=== PATIENT | female | born 1980 | race Caucasian/White ===

== ENCOUNTER 2025-05-22 17:43 | Emergency (ER) | payer MEDICARE, MEDICAID, SELFPAY ==
--- OUTSIDE RECORDS SUMMARY | 2024-01-07 11:20 | XMS_ITS ---
Author Organization [facility] [place] Address [address] [place] [address] Care Team Providers Care Lead Sharepoint Developer Name Role Phone None, Unknown or Primary Care Provider Unavailab Martin Finley Unavailable [phone] REASON FOR VISIT 1 yr ov, Renal mass Encounters Encounter Location Date Provider Diagnosis [facility] [place] [address] [place] [address] 01/07/2024 Martin Roman Plan Of Treatment No Information Progress Notes * MARADIAGACaitlinDOB:1980 ( 44 yo F)Acc No.[id number]:01/07/2024 UNLOCKED PROGRESS NOTE Progress Note Patient: Caitlin CHAPARRO Provider: Pamella Roman MD :1980 A ge:43 Y S ex:Female Date:01/07/2024 Address: [address] [address] , [id number] Pcp:Unknown or None Subjective: * Chief Complaints: * 1 . 1 yr ov. 2. Renal mass. * HPI: G eneral: Last Visit: 42 yo F with Down syndrome, normal GFR, being seen in the office today for a renal mass. She had a renal US done Aug 2022 that showed a 1.7 cm L renal cyst with multiple septations. She had imaging going back to 2020 in [place] that showed the same 1.6 cm L complex renal cyst. She had a CT in 2019 that called the cyst a 1.8 cm complex cyst. She had a CT scan without contrast that was done in November of this year that did not mention any suspicious renal cysts or masses. No kindey stones were noted. Urinalysis done in November showed no evidence of hematuria. She has had a surgery for scoliosis done when she was 20 that involved most of the length of her spine. No issues with gross hematuria. * Medical History: Objective: * Vitals: Assessment: Plan: * Treatment: * * Electronic signature of Martin Roman MD, [id number] on 05/22/2025 at 12:49 PM EDT Sign off status: Pending Visit Status: C ANC (Cancelled) * Provider: Pamella Roman MD Date: 0 01/07/2024 Generated for Chiki talbot/Shahbaz/Dedrickitting on: 0 05/22/2025 12:49 PM EDT
--- OUTSIDE RECORDS SUMMARY | 2025-05-12 13:30 | XMS_ITS | Encounter Summary ---
Author Organization [facility] Healthcare Address [address] [facility] [place] [address] Care Team Providers Care Chemical Engineering Professor Name Role Phone Martin An MD Primary Care Provider [phone] Reason for Visit * Consultation (Routine) - Authorized Specialty Diagnoses / Procedures Referred By Elvis vega Referred To Contact Physical Therapy Diagnoses S/P foot surgery Instability of right ankle joint Difficulty walking Weakness Procedures OR OFFICE/OUTPATIENT [facility] 60 MINUTES Anish Ng, DPM [address] [place] [address] Phone: tel: fax: Rick Montano, PT [address] [place] [address] Phone: tel: fax: Referral ID Status Reason Start Date Expiration Date Visits Requested Visits Authorized [id number] Authorized Specialty Services Required 04/17/2025 09/16/2025 10 30 Encounter Details Date Type Department Care Team (Late st Contact Info) Description 05/12/2025 1:30 PM EDT Treatment [facility] [address] [place] [address] Rick Montano, PT [address] [place] [address] Instability of right ankle joint (Primary Dx); S/P foot surgery; Difficulty walking; Weakness Social History Tobacco Use Types Packs/Day Years Used Date Smoking Tobacco: Never Smokeless Tobacco: Never Alcohol Use Standard Drinks/Week Comments Never 0 (1 standard drink = 0.6 oz pur e alcohol) Comments Unknown Sex and Gender Information Value Date Recorded Sex Assigned at Not on file Legal Sex Female 11:45 PM EDT Gender Identity Female 02/17/2025 8:42 AM EDT Sexual Orientation Not on file documented as of this encounter Progress Notes * Rick Montano, PT - 05/12/2025 1:30 PM EDT Images from the original note were not included. Physical Therapy Physical Therapy Treatment Visit Patient Name: Caitlin Huff Today's Date: 05/12/2025 Encounter Diagnoses Name Primary? Instability of right ankle joint Yes S/P foot surgery Difficulty walking Weakness Visit number: 5 Time in: 1:30 pm Time out: 2:06 pm Sup time: 31 min Total time: 36 min Subjective Caitlin Huff 44 y.o. female presents to physical therapy w/ chief c/o R ankle pain. Mechanism of Onset: Date of surgery 03/05/2025: Right ankle arthroscopy with debridement and peroneal tendon repair with superior peroneal retinacular reconstruction and fibular groove deepening. Current deficits: pain, weakness, decreased ROM/flexibility, impaired gait Pain: pt reports a little pain entering vs a lot or in-between options given due to not usually having much to say. Location: R ankle Aggravating Factors: WBING, standing, walking, movement, ADLs/self care Relieving factors: rest, ice Precautions: ASO x ~6 weeks overall, ease out in PT Objective Gait remains mod to severely antalgic with ASO brace on has cane with her father believes she just likes to use it because he uses one Treatment Interventions Education: Continue HEP Manual Therapy: x 8 min Gentle massage and PROM pt apprehensive and fearful Therapeutic Exercise:x 23 min per evgeny grid, ROM, flexibility, strength, endurance demo and verbal cues as well as encouragement Modalities: CP held today advised to ice at home prn still Assessment/Plan R ankle pain, decreased ROM, weakness causing impaired gait and increased difficulty with ADLs/selfcare, decreased QOL Tolerates all fair today. Pt is very fearful of all movement. Grimacing at times. Initiated some Wbing EVGENY in brace and will try to ease out of it as tolerated ok moving forward Continue as able. documented in this encounter Plan of Treatment Upcoming Encounters Date Type Department Care Team (Late st Contact Info) Description 05/28/2025 3:30 PM EDT Treatment [facility] [address] [place] [phone] Candace Johnson, CAPITAL MARKETS SPECIALIST [address] [place] [address] 05/29/2025 1:30 PM EDT Treatment [facility] [address] [place] [phone] Candace Johnson, CAPITAL MARKETS SPECIALIST [address] [facility] [place] [address] 06/01/2025 10:30 AM EDT Office Visit [facility] Podiatry [address] [place] [phone] Anish Ng, DPMemo [address] [address] 06/02/2025 11:30 AM EDT Treatment [facility] [address] [facility] [place] [address] Jacquelyn Colmenares, CAPITAL MARKETS SPECIALIST 06/04/2025 11:30 AM EDT Treatment [facility] [address] [facility] [place] [phone] Candace Johnson, CAPITAL MARKETS SPECIALIST [address] [facility] [place] [address] documented as of this encounter Visit Diagnoses Diagnosis Instability of right ankle joint- Primary S/P foot surgery Other postprocedural status Difficulty walking Difficulty in walking Weakness Other malaise and fatigue documented in this encounter Care Teams Chemical Engineering Professor Relationship Specialty Start Date End Date Martin nA MD [address] [place] [address], [address] [place], [place] [id number] PCP - General Family Medicine 01/12/25 documented as of this encounter
--- OUTSIDE RECORDS SUMMARY | 2025-05-15 13:30 | XMS_ITS | Encounter Summary ---
Author Organization [facility] Healthcare Address [address] [facility] [place] [address] Care Team Providers Care Mining Technician Name Role Phone Martin An MD Primary Care Provider [phone] Reason for Visit * Consultation (Routine) - Authorized Specialty Diagnoses / Procedures Referred By Elvis vega Referred To Contact Physical Therapy Diagnoses S/P foot surgery Instability of right ankle joint Difficulty walking Weakness Procedures [facility] OFFICE/OUTPATIENT [facility] 60 MINUTES Anish Ng, DPM [address] [place] [address] Phone: tel: fax: Rick Montano, PT [address] [place] [address] Phone: tel: fax: Referral ID Status Reason Start Date Expiration Date Visits Requested Visits Authorized [id number] Authorized Specialty Services Required 04/17/2025 09/16/2025 10 30 Encounter Details Date Type Department Care Team (Late st Contact Info) Description 05/15/2025 1:30 PM EDT Treatment [facility] [address] [place] [address] Rick Montano, PT [address] [place] [address] Instability of right ankle joint (Primary Dx); [...] Progress Notes * Rick Montano, PT - 05/15/2025 1:30 PM EDT Images from the original note were not included. Physical Therapy Physical Therapy Treatment Visit Patient Name: Caitlin Huff Today's Date: 05/15/2025 Encounter Diagnoses Name Primary? Instability of right ankle joint Yes S/P foot surgery Difficulty walking Weakness Visit number: 6 Time in: 1:05 pm Time out: 1:45 pm Sup time: 30 min Total time: 40 min Subjective Caitlin Huff 44 y.o. female [...] likes to use it because he uses one. Treatment Interventions Education: Continue HEP Manual Therapy: x 8 min Gentle massage and PROM pt apprehensive and fearful Therapeutic Exercise:x 22 min per evgeny grid, ROM, flexibility, strength, endurance demo and verbal cues as well as encouragement Modalities: CP held today advised to ice at home prn still Assessment/Plan R ankle pain, decreased ROM, weakness causing impaired gait and increased difficulty with ADLs/selfcare, decreased QOL Tolerates all fair today. Pt is very fearful of all movement. Grimacing at times. Discussed with ptand her father brace may be hurting more than helping at this point and we need to try to ease out as tolerated moving forward using funeral pre arrangement specialist brace to transition if needed, pt father agrees, reportingpt very inactive hardly gets out of chair at home and has hx of holding onto things and s/s. This is a barrier at this point, gait not improving has been bringing cane last few sessions and very antalgic/fearful, very slow loly, foot flat no heel-toe. Continue as able. documented in this encounter Plan of Treatment Upcoming Encounters Date Type Department Care Team (Late st Contact Info) Description 05/28/2025 3:30 PM EDT Treatment [facility] [address] [place] [phone] Candace Johnson, COMMERCIAL REAL ESTATE ATTORNEY [address] [facility] [place] [address] 05/29/2025 1:30 PM EDT Treatment [address] [place] [phone] Candace Johnson, COMMERCIAL REAL ESTATE ATTORNEY [address] [place] [address] 06/01/2025 10:30 AM EDT Office Visit [facility] Podiatry [address] [phone] Anish Ng, DPM [address] [place] [address] 06/02/2025 11:30 AM EDT Treatment [place] [id number] [place] [phone] Jacquelyn Colmenares, COMMERCIAL REAL ESTATE ATTORNEY 06/04/2025 11:30 AM EDT Treatment [place] [id number] [facility] [place] [phone] Candace Johnson, COMMERCIAL REAL ESTATE ATTORNEY [address] [facility] [place] [address] documented as of this encounter Visit Diagnoses Diagnosis Instability of right ankle joint- Primary S/P foot surgery Other postprocedural status Difficulty walking Difficulty in walking Weakness Other malaise and fatigue documented in this encounter Care Teams Mining Technician Relationship Specialty Start Date End Date Martin An MD [address] [place] [address], [address] [place] [address] PCP - General Family Medicine 01/12/25 documented as of this encounter
--- OUTSIDE RECORDS SUMMARY | 2025-05-21 13:35 | XMS_ITS | Encounter Summary ---
Author Organization [facility] Address [id number] [address] [place] [address] Care Team Providers Care Curriculum Assistant Name Role Phone Martin An MD Primary Care Provider [phone] Reason for Visit * Reason Comments Heartburn Pt reports epigastri c pain that started after eating her toast. Encounter Details Date Type Department Care Team (Late st Contact Info) Description 05/21/2025 1:35 PM EDT - 05/21/2025 5:40 PM EDT Emergency [facility] - Emergency [address] [place] [id number] Marta Pearson MD [address] [place] [address] Chest pain, unspecified type (Primary Dx) Discharge Disposition: Home Social History Tobacco Use Types Packs/Day Years Used Date Smoking Tobacco: Never Smokeless Tobacco: Never Alcohol Use Standard Drinks/Week Comments Never 0 (1 standard drink = 0.6 oz pur e alcohol) [facility] Utilities Answer Date Recorded In the past 12 months has [employer], gas, oil, or water [employer] threatened to shut off services in your home? No 03/14/2025 Social Connection and Isolation Panel [NHANES] A nswer Date Recorded In a typical week, how many times do you talk on the phone with family, friends, or neighbors? Patient unable to answer 03/14/2025 How often do you get togethe r with friends or relatives? Patient unable to answer 03/14/2025 How often do you attend up health system or restorationism services? Patient unable to answer 03/14/2025 Do you belong to any clubs o r organizations such as oriental orthodox groups, unions, fraternal or athletic groups, or school groups? Patient unable to answer 03/14/2025 How often do you attend meet ings of the clubs or organizations you belong to? Patient unable to answer 03/14/2025 Are you , , di vorced, , never , or living with a partner? Patient unable to answer 03/14/2025 AUDIT-C Answer Date Recorded Q1: How often do you have a drink containing alcohol? Never 03/14/2025 Q2: How many drinks containi ng alcohol do you have on a typical day when you are drinking? Patient does not drink Q3: How often do you have si x or more drinks on one occasion? Never 03/14/2025 Overall Financial Resource Strain (CARDIA) Answe r Date Recorded How hard is it for you to pa y for the very basics like food, housing, medical care, and heating? Not hard at all 03/14/2025 PHQ-2 Answer Date Recorded Total Score 6 03/14/2025 [facility] of Occupat ional Health - Occupational Stress Questionnaire Answer Date Recorded Do you feel stress - tense, restless, nervous, or anxious, or unable to sleep at night because your mind is troubled all the time - these days? Patient unable to answer 03/14/2025 Exercise Vital Sign Answer Date Recorde d On average, how many days pe r week do you engage in moderate to strenuous exercise (like a brisk walk)? 0 days 03/14/2025 On average, how many minutes do you engage in exercise at this level? 0 min 03/14/2025 PRAPARE - Transportation Answer Date Re corded In the past 12 months, has l ack of transportation kept you from medical appointments or from getting medications? No 02/16 In the past 12 months, has l ack of transportation kept you from meetings, work, or from getting things needed for daily living? No 03/14/2025 Housing Instability Answer Date Recorde d Are you worried or concerned that in the next two months you may not have stable housing that you own, rent or stay in as a part of a household? No 03/14/2025 Childcare Answer Date Recorded Do problems getting child ca re make it difficult for you to work or study? No 03/14/2025 Employment Answer Date Recorded Do you need help finding a [facility] and/or a training program? No 03/14/2025 Hunger Screening Answer Date Recorded Within the past 12 months we worried whether our food would run out before we got money to buy more. Never True 05/21/2025 Within the past 12 months th e food we bought just didn't last and we didn't have money to get more. Never True 05/21/2025 Purpose - Life Answer Date Recorded I have a purpose and direction in my life. Stron gly Agree 03/14/2025 Comments No Sex and Gender Information Value Date Recorded Sex Assigned at Not on file Legal Sex Female 7:50 PM EDT Gender Identity Not on file Sexual Orientation Not on file documented as of this encounter Last Filed Vital Signs Vital Sign Reading Time Taken Comments Blood Pressure 112/65 05/21/2025 5:15 PM EDT Pulse 65 05/21/2025 5:15 PM EDT Temperature 37.1 C (98.7 F) 05/21/2025 1:38 PM EDT Respiratory Rate 12 05/21/2025 5:15 PM EDT Oxygen Saturation 91% 05/21/2025 5:15 PM EDT Inhaled Oxygen Concentration - - Weight 65.8 kg (145 lb) 05/21/2025 1:38 PM EDT Height 152.4 cm (5') 05/21/2025 1:38 PM EDT Body Mass Index 28.32 05/21/2025 1:38 PM EDT documented in this encounter Discharge Instructions * Attachments The following attachments cannot be sent through Care Everywhere. * Chest pain in adults ??? ED discharge instructions (Pakistani) documented in this encounter Medications at Time of Discharge acetaminophen (TYLENOL EXTRA STRENGTH) 500 mg tablet Take 2 tablets (1,000 mg total) by mouth every 6 (six) hours as needed for pain. 03/13/2025 ascorbic acid (VITAMIN C) 500 mg tablet Take 1 tablet (500 mg total) by mouth in the morning. biotin (BIOTIN) 5 mg capsule Take 1 capsule (5 mg total) by mouth in the morning. cholecalciferol, vitamin D3, (VITAMIN D3 ORAL) Take by mouth. clotrimazole-beta methasone (LOTRISONE) creamIndications: Intertriginous candidiasis Apply 1 Application topically in the morning and 1 Application before bedtime. 45 g 02/24/2025 cyanocobalamin 1000 MCG tablet Take 1 tablet (1,000 mcg total) by mouth in the morning. escitalopram (LEXAPRO) 20 mg tablet Take 1 tablet (20 mg total) by mouth in the morning. 90 tablet 1 08/09/2022 ibuprofen (MOTRIN) 800 mg tablet Take 1 tablet (800 mg total) by mouth every 8 (eight) hours as needed for pain. 03/13/2025 levothyroxine (SYNTHROID, LEVOTHROID) 75 MCG tablet Take 1 tablet (75 mcg total) by mouth in the morning. 90 tablet 3 05/07/2025 multivitamin with minerals tablet niacin (VITAMIN B3) 250 mg tablet Take 1 tablet (250 mg total) by mouth daily with breakfast. OXcarbazepine (TRILEPTAL) 150 mg tablet Take 1 tablet (150 mg total) by mouth nightly. 90 tablet 09/29/2022 traZODone (DESYREL) 50 mg tablet Take 1 tablet (50 mg total) by mouth nightly. 06/17/2022 documented as of this encounter ED Notes * Marta Pearson MD - 05/21/2025 2:01 PM EDT Images from the original note were not included. [facility] - EMERGENCY Pt Name: Caitlin Huff Birthdate: 1980 Chief Complaint: Chief Complaint Patient presents with ??? Heartburn Pt reports epigastric pain that started after eating her toast. History of Present Illness: Initial evaluation performed at 2:[address] Marisel Pearson. Patient is a 44 y.o. female who presents to the ED for evaluation of chest pain. Pt has down syndrome so history is not that great but mother is in room to help us. Mother states she has had chest pain and shortness of breath since 1030 AM today, with the pt states that the pain is a 6/10 and is a constant moderate pain, and she states it hurts more when taking a deep breath. Mother denied any prior history of this happening. Pt and mother denied taking any medication for this. Mother states she does have a history of heart problems, but could not provide any details. Mother denied any history of diabetes, hypertension, GERD, or anxiety. Mother states that the pt's blood pressure does tend to be lower, but not as low as it has been today. Pt denied any abdominal pain, but does state she is slightly nauseous. Mother states the patient is bipolar and does take medications for that. Patient is developmentally delayed and mom does provide history as well. 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 Allergic 1982 Ceclor ??? Anxiety ??? Arthritis ??? Depression ??? Disease of thyroid gland ??? Down syndrome ??? Heart murmur ??? HL (hearing loss) ??? Leukopenia ??? Scoliosis ??? Visual impairment Past Surgical History: Past Surgical History: Procedure Laterality Date ??? ADENOIDECTOMY ??? ARTHROSCOPIC DEBRIDEMENT ANKLE Right 03/05/2025 Performed by Anish Ng DPM at [facility] ??? COLONOSCOPY 20uears ago 2019 ??? HYSTERECTOMY ??? KNEE SURGERY Right ??? REPAIR TENDON ANKLE Right 03/05/2025 Performed by Anish Ng DPM at [facility] ??? SPINE SURGERY scoliosis ??? TONSILLECTOMY Family History: Family History Problem Relation Age of Onset ??? Arthritis Mother ??? COPD Mother ??? Depression Mother ??? Alcohol abuse Father ??? Diabetes Maternal Grandmother ??? Heart disease Maternal Grandmother ??? Uterine cancer Maternal Grandmother ??? Hyperlipidemia Maternal Grandfather ??? Hypertension Maternal Grandfather ??? Prostate cancer Maternal Grandfather ??? Stroke Maternal Grandfather ??? Lung cancer Maternal Uncle ??? Breast cancer Neg Hx Social History: Social History Socioeconomic History ??? Marital status: Single Tobacco Use ??? Smoking status: Never ??? Smokeless tobacco: Never Vaping Use ??? Vaping status: Never Used Substance and Sexual Activity ??? Alcohol use: Never ??? Drug use: Never ??? Sexual activity: Never Social Drivers of Health Financial Resource Strain: Low Risk (03/14/2025) Overall Financial Resource Strain (CARDIA) ??? Difficulty of Paying Living Expenses: Not hard at all Food Insecurity: No Food Insecurity (05/21/2025) Hunger Screening ??? Food Insecurity - Worry: Never True ??? Food Insecurity - Inability: Never True Transportation Needs: No Transportation Needs (03/14/2025) PRAPARE - Transportation ??? Lack of Transportation (Medical): No ??? Lack of Transportation (Non-Medical): No Physical Activity: Inactive (03/14/2025) Exercise Vital Sign ??? Days of Exercise per Week: 0 days ??? Minutes of Exercise per Session: 0 min Stress: Patient Unable To Answer (03/14/2025) [place] of Occupational Health - Occupational Stress Questionnaire ??? Feeling of Stress : Patient unable to answer Social Connections: Patient Unable To Answer (03/14/2025) Social Connection and Isolation Panel [NHANES] ??? Frequency of Communication with Friends and Family: Patient unable to answer ??? Frequency of Social Gatherings with Friends and Family: Patient unable to answer ??? Attends Jew Services: Patient unable to answer ??? Active Member of Clubs or Organizations: Patient unable to answer ??? Attends Club or Organization Meetings: Patient unable to answer ??? Marital Status: Patient unable to answer Interpersonal Safety: Not At Risk (03/14/2025) Humiliation, Afraid, Rape, and Kick questionnaire ??? Fear of Current or Ex-Partner: No ??? Emotionally Abused: No ??? Physically Abused: No ??? Sexually Abused: No Housing Instability: Low Risk (03/14/2025) Housing Instability ??? Housing Instability: No Review of Systems: Review of Systems Physical Exam: ED Triage Vitals [05/21/25 1338] Temp Heart Rate Resp BP SpO2 37.1 ??C (98.7 ??F) 73 20 (!) 104/38 95 % Temp Source Heart Rate Source Patient Position BP Location FiO2 (%) Oral Pulse Ox Sitting Left arm -- Vitals: 05/21/25 1338 05/21/25 1500 BP: (!) 104/38 96/71 Temp: 37.1 ??C (98.7 ??F) TempSrc: Oral Pulse: 73 60 Resp: 20 19 SpO2: 95% 98% Height: 152.4 cm (5') Weight: 65.8 kg (145 lb) Physical Exam Vitals and nursing note reviewed. Constitutional: Comments: Bp is 104/38 and mom notes that her bp tends to runs low, sometimes lower than that. HENT: Head: Normocephalic and atraumatic. Eyes: Conjunctiva/sclera: Conjunctivae normal. Cardiovascular: Rate and Rhythm: Normal rate. Pulmonary: Effort: Pulmonary effort is normal. Breath sounds: Normal breath sounds. Chest: Comments: Chest pain is reproducible over the lower sternum. Abdominal: General: There is no distension. Palpations: Abdomen is soft. Musculoskeletal: General: Normal range of motion. Cervical back: Normal range of motion and neck supple. Skin: General: Skin is warm and dry. Neurological: General: No focal deficit present. Mental Status: She is alert and oriented to person, place, and time. GCS: GCS eye subscore is 4. GCS verbal subscore is 5. GCS motor subscore is 6. Procedure: Procedures Re-evaluation: Re-Evaluation Medical Decision Making Amount and/or Complexity of Data Reviewed Labs: ordered. Details: Labs notable for: initial labs at baseline. Currently waiting for second trop and UA. Radiology: ordered and independent interpretation performed. Details: Imaging was independently viewed and is notable for no acute findings. However, pending official radiologist read. ECG/medicine tests: ordered and independent interpretation performed. Details: EKG done on 05/21/2025 at 1:33 p.m. shows sinus rhythm at a rate of 72. Normal axis. Normal intervals. No inappropriate ST elevation or depression. Nonspecific T-waves. ED Course: ED Course as of 05/21/25 1729 Gabriella May 21, 2025 170 Metabolic panel is reassuring against acute clinically significant electrolyte abnormalities, acute kidney injury, and acute liver failure. Troponin is within normal limits, lessening concern for acute IA. CBC is reassuring against acute clinically significant anemia, leukocytosis, and thrombocytopenia. BNP not significantly elevated, lessening concern for acute heart failure. Lipase is not significantly elevated, lessening concern for acute pancreatitis. [DW] 1709 UA inconclusive, no clear urinary symptoms. Will send for culture [DW] 1728 Troponin I, High Sensitivity: 3 [DW] ED Course User Index [DW] Gaetano Velazquez, DO Clinical Impressions as of 05/21/25 1729 Chest pain, unspecified type Transfer of Care: Germán Borden(scribe), documented on behalf and in the presence of Dr. Navin Pearson. 05/21/2025 4:[address] Shadi Velazquez accepted sign out from Dr. Navin Pearson. Additional Notes/Findings for Transfer of Care 05:19 PM Updated the pt and her family on results of workup. The pt is stable for discharge home. Return precautions were discussed. We discussed the need for follow up with PCP. The pt stated their understanding. They had no further questions. ED Disposition None . Please note that portions of this note were completed with a voice recognition program. Efforts were made to edit the dictations but occasionally words are mis-transcribed. Germán Nava 05/21/25 1402 Germán Nava 05/21/25 1406 Germán Nava 05/21/25 1409 Germán Nava 05/21/25 1418 Germán Nava 05/21/25 1511 Marta Pearson MD 05/21/25 1518 Germán Nava 05/21/25 1534 Marta Pearson MD 05/21/25 1540 Nikita Harper 05/21/25 1724 Marta Pearson MD 05/22/25 1348 documented in this encounter Plan of Treatment Upcoming Encounters Date Type Department Care Team (Late st Contact Info) Description 11/30/2025 1:30 PM EDT Office Visit [facility] [address] [place] [phone] Martin An MD [address] [place] [address], [address] [place] [phone] Pending Results Name Type Priority Associated Diagnoses Date /Time Urine Culture Urine, Clean Catch Midstream Microbiology STAT 05/21/2025 4:58 PM EDT Scheduled Orders Name Type Priority Associated Diagnoses Orde r Schedule Urine Culture Urine, Clean Catch Midstream Microbiology STAT Add-on STAT for 1 Occurrences starting 05/21/2025 until 05/21/2025 documented as of this encounter Goals Goal Patient Goal Type Associated Problems Recent Progress Patient-Stated? Author jail care General Yes Darlene Mendes, RN Note: Evaluation of progress towards goal: Patient and her parents are agreeable to jail care. Mother states that the patient was at [facility] before and they will accept her back. Referral sent to [facility] and physician underwriter spoke with Briana at [facility]. Briana is not familiar with a discussion with the mother. They will review the referral. documented as of this encounter Procedures Procedure Name Priority Date/Time Associated Diagnosis Comments POCT NURSING URINE MACROSCOPIC UA Routine 05/21/2025 5:12 PM EDT ER EXTRA URINE MARBLE STAT 05/21/2025 4:58 PM EDT ER EXTRA URINE CULTURE STAT 4:58 PM EDT ER EXTRA URINE STAT 05/21/2025 4:58 PM EDT TROP I, HIGH SENSITIVITY 1 HOUR STAT 05/21/2025 3:33 PM EDT XR CHEST 2 VWS STAT 05/21/2025 3:23 PM EDT TROPONIN I, HIGH SENSITIVITY 0 HOUR STAT 05/21/2025 2:18 PM EDT TROPONIN I, HIGH SENSITIVITY 0 HOUR STAT 05/21/2025 2:18 PM EDT MAGNESIUM STAT 05/21/2025 2:18 PM EDT LIPASE STAT 05/21/2025 2:18 PM EDT COMPREHENSIVE METABOLIC PANEL STAT 05/21/2025 2:18 PM EDT EXTRA TUBES LAVENDER TOP Routine 05/21/2025 2:17 PM EDT EXTRA TUBES BLUE TOP Routine 05/21/2025 2:17 PM EDT EXTRA TUBES Routine 05/21/2025 2:17 PM EDT CBC WITH AUTO DIFFERENTIAL STAT 05/21/2025 2:17 PM EDT B-TYPE NATRIURETIC PEPTIDE STAT 05/21/2025 2:17 PM EDT ECG 12-LEAD STAT 05/21/2025 1:33 PM EDT documented in this encounter Results * (ABNORMAL) POCT Nursing Urine Macroscopic UA (05/21/2025 5:12 PM EDT) Pathologist [facility] POC Urine Specific [place] 1.020 1.010, 1.015, 1.020, 1.025 05/21/2025 5:01 PM EDT [facility] POC Urine Leukocyte Esterase Trace(A) Negative 05/21/2025 5:01 PM EDT [facility] POC Urine Nitrite Negative Negative 05/21/2025 5:01 PM EDT [facility] POC Urine pH 7.0 5.0, 6.0, 6.5, 7.0, 7.5, 8.0, 8.5, 5.5 05/21/2025 5:01 PM EDT [facility] POC Urine Protein Negative Negative 05/21/2025 5:01 PM EDT [facility] POC Urine Glucose Negative Negative 05/21/2025 5:01 PM EDT [facility] POC Urine Ketones Trace(A) Negative 05/21/2025 5:01 PM EDT [facility] POC Urine Urobilinogen 0.2 E.U./dL 05/21/2025 5:01 PM EDT [facility] POC Urine Bilirubin Negative Negative 05/21/2025 5:01 PM EDT [facility] POC Urine Blood/HGB Trace(A) Negative 05/21/2025 5:01 PM EDT [facility] Urine 05/21/2025 5:12 PM EDT 05/21/2025 5:01 PM EDT us Marta Pearson MD POINT OF CARE TEST ORDERABLES Final Result Performing Organization Address [facility] Co de Phone Number [address] [place] [address], [place] * Extra Urine [place]ett (05/21/2025 4:58 PM EDT) Extra Tube Auto Resulted 05/21/2025 6:01 PM EDT [facility] Urine Urine specimen collection, clean catch / Unknown 05/21/2025 4:58 PM EDT 05/21/2025 5:22 PM EDT us Marta Pearson MD URINE ORDERABLES Final Result Performing Organization Address [facility] Co de Phone Number [address] [place] [address], [place] * Extra Urine Culture (05/21/2025 4:58 PM EDT) Extra Tube Auto Resulted 05/21/2025 6:01 PM EDT [facility] Urine Urine specimen collection, clean catch / Unknown 05/21/2025 4:58 PM EDT 05/21/2025 5:22 PM EDT us Marta Pearson MD URINE ORDERABLES Final Result Performing Organization Address [facility] Co de Phone Number [address] [place] [address], [place] * Extra Urine (05/21/2025 4:58 PM EDT) Extra Tube Auto Resulted 05/21/2025 6:01 PM EDT [facility] Urine Urine specimen collection, clean catch / Unknown 05/21/2025 4:58 PM EDT 05/21/2025 5:22 PM EDT us Marta Pearson MD URINE ORDERABLES Final Result Performing Organization Address City/[facility]/ZIP Co de Phone Number [facility] [address] [place] [address] [place] [address], [place] * Troponin I, High Sensitivity 1 Hour (05/21/2025 3:33 PM EDT) TROPONIN I, HIGH SENSITIVITY 3 <16 ng/L 05/21/2025 5:26 PM EDT [facility] Blood Venous blood / Unknown Venipuncture / Unknown 05/21/2025 3:33 PM EDT 05/21/2025 3:38 PM EDT Marta Pearson MD LAB BLOOD ORDERABLES Final Re sult Performing Organization Address [facility] Co de Phone Number [address] [place] [address], [place] * X-ray chest 2 views (05/21/2025 3:23 PM EDT) Anatomical Region Laterality Modality Body, Chest N/A Computed Radiogr aphy 05/21/2025 3:23 PM EDT Narrative 05/21/2025 3:24 PM EDT XR CHEST 2 VWS INDICATION: Chest pain COMPARISON: X-ray 05/12/2023 FINDINGS: Cardiomediastinal silhouette and pulmonary vasculature are within normal limits. Lungs and pleural space are clear. There is no pleural effusion or pneumothorax. Partial visualization of thoracic fusion hardware. IMPRESSION: No acute cardiopulmonary process. Finalized by Dereck Peterson on 05/21/2025 3:24 PM Procedure Note Dereck Peterson MD - 05/21/2025 XR CHEST 2 VWS INDICATION: Chest pain COMPARISON: X-ray 05/12/2023 FINDINGS: Cardiomediastinal silhouette and pulmonary vasculature are within normallimits. Lungs and pleural space are clear. There is no pleural effusionor pneumothorax. Partial visualization of thoracic fusion hardware. IMPRESSION: No acute cardiopulmonary process. Finalized by Dercek Peterson on 05/21/2025 3:24 PM Marta Pearson MD IMG DIAGNOSTIC IMAGING ORDERA BLES Final Result * Troponin I, High Sensitivity 0 Hour (05/21/2025 2:18 PM EDT) Pathologist [facility] TROPONIN I, HIGH SENSITIVITY 2 <16 ng/L 05/21/2025 2:50 PM EDT [facility] Blood Venous blood / Unknown Venipuncture / Unknown 05/21/2025 2:18 PM EDT 05/21/2025 2:19 PM EDT Marta Pearson MD LAB BLOOD ORDERABLES Final Re sult Performing Organization Address [facility] Co de Phone Number [address] [place] [address], [place] * (ABNORMAL) Lipase (05/21/2025 2:18 PM EDT) Pathologist [facility] LIPASE 59(H) 17 - 40 U/L 05/21/2025 2:41 PM EDT [facility] Blood Venous blood / Unknown Venipuncture / Unknown 05/21/2025 2:18 PM EDT 05/21/2025 2:19 PM EDT Marta Pearson MD LAB BLOOD ORDERABLES Final Re sult Performing Organization Address [facility] Co de Phone Number [address] [place] [address], [place] * Comprehensive metabolic panel (05/21/2025 2:18 PM EDT) Pathologist [facility] SODIUM 138 134 - 146 mmol/L 05/21/2025 2:44 PM EDT [facility] POTASSIUM 4.0 3.5 - 5.0 mmol/L 05/21/2025 2:44 PM EDT [facility] CHLORIDE 104 98 - 109 mmol/L 05/21/2025 2:44 PM EDT [facility] CARBON DIOXIDE 29 22 - 32 mmol/L 05/21/2025 2:44 PM EDT [facility] ANION GAP 5 5 - 15 mmol/L 05/21/2025 2:44 PM EDT [facility] BLOOD UREA NITROGEN 18 5 - 23 mg/dL 05/21/2025 2:44 PM EDT [facility] CREATININE 0.83 0.40 - 1.00 mg/dL 05/21/2025 2:44 PM EDT [facility] Comment:METHOD TRACEABLE TO IDMS STANDARD GLUCOSE 90 65 - 99 mg/dL 05/21/2025 2:44 PM EDT [facility] CALCIUM 9.0 8.5 - 10.5 mg/dL 05/21/2025 2:44 PM EDT [facility] TOTAL PROTEIN 7.3 6.0 - 8.0 g/dL 05/21/2025 2:44 PM EDT [facility] ALBUMIN 3.8 3.2 - 5.3 g/dL 05/21/2025 2:44 PM EDT [facility] ALKALINE PHOSPHATASE 66 39 - 130 U/L 05/21/2025 2:44 PM EDT [facility] AST 22 <=41 U/L 05/21/2025 2:44 PM EDT [facility] ALT 15 <=31 U/L 05/21/2025 2:44 PM EDT [facility] BILIRUBIN,TOTAL 0.3 0.3 - 1.2 mg/dL 05/21/2025 2:44 PM EDT [facility] EGFR Non-Race Dependent 89 >=60 ml/min/1.7 3sq.m 05/21/2025 2:44 PM EDT [facility] Comment: eGFR not reported due to non-numeric value for Creatinine. Reported eGFR is based on the CKD-EPI 2020 equation that does not use a race coefficient. Blood Venous blood / Unknown Venipuncture / Unknown 05/21/2025 2:18 PM EDT 05/21/2025 2:19 PM EDT us Marta Pearson MD LAB BLOOD ORDERABLES Final Re sult Performing Organization Address City/[facility]/ZIP Co de Phone Number [address] [place] [address], [place] * Magnesium (05/21/2025 2:18 PM EDT) MAGNESIUM 2.0 1.8 - 2.6 mg/dL 05/21/2025 2:44 PM EDT [facility] Blood Venous blood / Unknown Venipuncture / Unknown 05/21/2025 2:18 PM EDT 05/21/2025 2:19 PM EDT us Marta Pearson MD LAB BLOOD ORDERABLES Final Re sult Performing Organization Address [facility] Co de Phone Number [address] [place] [address], [place] * Lavender Top (05/21/2025 2:17 PM EDT) Extra Tube Auto Resulted 05/21/2025 4:01 PM EDT [facility] Blood Venous blood / Unknown Venipuncture / Unknown 05/21/2025 2:17 PM EDT 05/21/2025 2:19 PM EDT us Marta Pearson MD LAB BLOOD ORDERABLES Final Re sult Performing Organization Address City/[facility]/ZIP Co de Phone Number [address] [place] [address], [place] * Light Blue Top (05/21/2025 2:17 PM EDT) Extra Tube Auto Resulted 05/21/2025 4:01 PM EDT [facility] Blood Venous blood / Unknown 05/21/2025 2:17 PM EDT 05/21/2025 2:19 PM EDT us Marta Pearson MD LAB BLOOD ORDERABLES Final Re sult [facility] [address] [place] [address], [place] * (ABNORMAL) CBC auto differential (05/21/2025 2:17 PM EDT) WBC 3.2(L) 4 - 11 x10E9/L 05/21/2025 2:26 PM EDT [facility] RBC Count 3.90 3.8 - 5.2 X10E12/L 05/21/2025 2:26 PM EDT [facility] Hemoglobin 12.9 11.7 - 15.5 g/dL 05/21/2025 2:26 PM EDT [facility] Hematocrit 38.5 35 - 47 % 05/21/2025 2:26 PM EDT [facility] MCV 99 80 - 100 fL 05/21/2025 2:26 PM EDT [facility] MCH 33.1 27 - 34 pg 05/21/2025 2:26 PM EDT [facility] MCHC 33.6 32 - 36 g/dL 05/21/2025 2:26 PM EDT [facility] RDW 14.3 11.5 - 15 % 05/21/2025 2:26 PM EDT [facility] Platelet Count 199 150 - 450 X10E9/L 05/21/2025 2:26 PM EDT [facility] MPV 7.2 7 - 12 fL 05/21/2025 2:26 PM EDT [facility] Neutrophils % 53.2 % 05/21/2025 2:26 PM EDT [facility] Lymphocytes % 34.9 % 05/21/2025 2:26 PM EDT [facility] Monocytes % 8.7 % 05/21/2025 2:26 PM EDT [facility] Eosinophils % 2.9 % 05/21/2025 2:26 PM EDT [facility] Basophils % 0.3 % 05/21/2025 2:26 PM EDT [facility] Neutrophils Absolute (A) 1.7 1.5 - 6.6 10*3/uL 05/21/2025 2:26 PM EDT [facility] Lymphocytes Absolute 1.1 1.0 - 3.5 10*3/uL 05/21/2025 2:26 PM EDT [facility] Monocytes Absolute 0.3 0.0 - 0.9 10*3/uL 05/21/2025 2:26 PM EDT [facility] Eosinophils Absolute 0.1 0.0 - 0.4 10*3/uL 05/21/2025 2:26 PM EDT [facility] Basophils Absolute 0.0 0.0 - 0.2 10*3/uL 05/21/2025 2:26 PM EDT [facility] Differential Type AUTOMATED DIFFERENTIAL 05/21/2025 2:26 PM EDT [facility] Blood Venous blood / Unknown Venipuncture / Unknown 05/21/2025 2:17 PM EDT 05/21/2025 2:20 PM EDT us Marta Pearson MD LAB BLOOD ORDERABLES Final Re sult [facility] [address] [place] [address], * B-type natriuretic peptide (05/21/2025 2:17 PM EDT) BNP 43 <=100 pg/mL 05/21/2025 2:48 PM EDT [facility] Blood Venous blood / Unknown Venipuncture / Unknown 05/21/2025 2:17 PM EDT 05/21/2025 2:19 PM EDT us Marta Pearson MD LAB BLOOD ORDERABLES Final Re sult [facility] [address] [facility] [place] [address], [place] * Electrocardiogram, 12-lead (05/21/2025 1:33 PM EDT) 05/21/2025 1:33 PM EDT us Marta Pearson MD ECG ORDERABLES Final Result TRACEMASTERVDEVORAH documented in this encounter Visit Diagnoses Diagnosis Chest pain, unspecified type- Primary documented in this encounter Administered Medications Inactive Administered Medications - up to 3 most recent administrations Medication Order MAR Action Action Date Dose Rate Site maalox-lidocaine (GI COCKTAIL) 3:1 oral suspension 40 mL 40 mL, oral, Once, On Gabriella 05/21/25 at 1414, For 1 dose Given 05/21/2025 2:31 PM EDT 40 mL documented in this encounter Active and Recently Administered Medications Times are shown in EDT. Scheduled Medication Order 05/19/2025 05/20/2025 05/21/2025 ketorolac (TORADOL) injection 30 mg 30 mg, intravenous, Once, On Gabriella 05/21/25 at 1725, For 1 dose, Look-alike/sound-alike medication - verify indication for use. Duration of therapy is not to exceed 5 days. Maximum recommended dose + 120mg/24 hours. 1725 (Not Given - Pr ovider: Isabelle Castro RN - Reason: Other) maalox-lidocaine (GI COCKTAIL) 3:1 oral suspension 40 mL (COMPLETED) 40 mL, oral, Once, On Gabriella 05/21/25 at 1414, For 1 dose 1431 (Given - Provid er: Isabelle Castro RN) documented in this encounter Additional Health Concerns Assessment Noted Time PHQ-9 Depression Total Score: 6 03/14/20 1:52 AM EDT documented as of this encounter Care Teams Curriculum Assistant Relationship Specialty Start Date End Date Martin An MD [address] [place] [address], [address] [place] [address] PCP - General Pediatrics 08/20/23 documented as of this encounter
[2025-05-22] VITALS (31 sets, daily range): BP systolic 99–142; BP diastolic 40–75; PULSE 60–93; TEMP 37.1; O2SAT 95–100; BMI 55.0
--- OUTSIDE RECORDS SUMMARY | 2025-05-22 12:30 | XMS_ITS | Encounter Summary ---
Author Organization [facility] Healthcare Address [address] [facility] [place] [address] Care Team Providers Care Client Sales And Service Officer Name Role Phone Martin An MD Primary Care Provider [phone] Reason for Visit * Consultation (Routine) - Authorized Specialty Diagnoses / Procedures Referred By Elvis vega Referred To Contact Physical Therapy Diagnoses S/P foot surgery Instability of right ankle joint Difficulty walking Weakness Procedures MT OFFICE/OUTPATIENT [facility] 60 MINUTES Anish Ng, DPM [address] [place] [address] Phone: tel: fax: Rick Montano, PT [address] [place] [address] Phone: tel: fax: Referral ID Status Reason Start Date Expiration Date Visits Requested Visits Authorized [id number] Authorized Specialty Services Required 04/17/2025 09/16/2025 10 30 Encounter Details Date Type Department Care Team (Late st Contact Info) Description 05/22/2025 12:30 PM EDT Treatment [facility] [address] [place] [address] Rick Montano, PT [address] [place] [address] Instability of right ankle joint (Primary Dx); [...] Progress Notes * Rick Montano, PT - 05/22/2025 12:30 PM EDT Images from the original note were not included. Physical Therapy Physical Therapy Treatment Visit Patient Name: Caitlin Huff Today's Date: 05/22/2025 Encounter Diagnoses Name Primary? Instability of right ankle joint Yes S/P foot surgery Difficulty walking Weakness Visit number: 7 Time in: 12:30 pm Time out: 1:15 pm Sup time: 38 min Total time: 45 min Subjective Caitlin Huff 44 y.o. female [...] PROM pt apprehensive and fearful Therapeutic Exercise:x 30 min sup per evgeny grid, ROM, flexibility, strength, endurance demo and verbal cues as well as encouragement. Pt did up and over (up and down steps) reciprocal pattern with cues and encouragement favoring R LE at times especially down. Also added WBING general exercise odell. Pt slow going with all. Modalities: CP held today advised to ice at home prn still Assessment/Plan R ankle pain, decreased ROM, weakness causing impaired gait and increased difficulty with ADLs/selfcare, decreased QOL Tolerates all a little better today. Pt is very fearful of all movement. Grimacing at times. 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 Continue progressing as able. documented in this encounter Plan of Treatment Upcoming Encounters Date Type Department Care Team (Late st Contact Info) Description 05/28/2025 3:30 PM EDT Treatment [facility] [address] [facility] [phone] Candace Johnson, MIXER OPERATOR [employer]PER [employer] [address] [facility] [place] [address] 05/29/2025 1:30 PM EDT Treatment [facility] [address] [place] [phone] Candace Johnson, MIXER OPERATOR [employer] [address] [facility] [place] [address] 06/01/2025 10:30 AM EDT Office Visit [facility] Podiat[facility] [address] [place] [address] Anish Ng, DPM [address] [place] [address] 06/02/2025 11:30 AM EDT Treatment [facility] [address] [place] [phone] Jacquelyn Colmenares, ERNESTO 06/04/2025 11:30 AM EDT Treatment [facility] [address] [place] [phone] Candace Johnson, MIXER OPERATOR [employer] [address] [facility] [place] [address] documented as of this encounter Visit Diagnoses Diagnosis Instability of right ankle joint- Primary S/P foot surgery Other postprocedural status Difficulty walking Difficulty in walking Weakness Other malaise and fatigue documented in this encounter Care Teams Client Sales And Service Officer Relationship Specialty Start Date End Date Martin An MD [address] [place] [address], [address] [place] [address] PCP - General Family Medicine 01/12/25 documented as of this encounter
--- NOTE | 2025-05-22 18:01 | ECG_ITS ---
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
--- OUTSIDE RECORDS SUMMARY | 2025-05-22 18:01 | XMS_ITS | Clinical Summary ---
Author Organization [facility] Address [id number] [address] [place] [address] Care Team Providers Care Archeology Faculty Member Name Role Phone Martin An MD Primary Care Provider [phone] Allergies Active Allergy Reactions Criticality Noted Date Comments Cefaclor Other (See Comments) 07/07/2022 Constipation Fentanyl Other (See Comments) High 07/07/2024 Had a seizure after receiving fentanyl for an MRI Fludrocortisone Rash Low 02/07/2022 Hydrocortisone Rash Low 07/20/2022 Yellow Dye Rash Low 02/07/2022 Medications traZODone (DESYREL) 50 mg tablet Take 1 tablet (50 mg total) by mouth nightly. 2 Active multivitamin with minerals tablet Active biotin (BIOTIN) 5 mg capsule Take 1 capsule (5 mg total) by mouth in the morning. Active niacin (VITAMIN B3) 250 mg tablet Take 1 tablet (250 mg total) by mouth daily with breakfast. Active cholecalciferol , vitamin D3, (VITAMIN D3 ORAL) Take by mouth. Activ e ascorbic acid (VITAMIN C) 500 mg tablet Take 1 tablet (500 mg total) by mouth in the morning. Active cyanocobalamin 1000 MCG tablet Take 1 tablet (1,000 mcg total) by mouth in the morning. Active escitalopram (LEXAPRO) 20 mg tablet Take 1 tablet (20 mg total) by mouth in the morning. 90 tablet 1 2 Active OXcarbazepine (TRILEPTAL) 150 mg tablet Take 1 tablet (150 mg total) by mouth nightly. 90 tablet 3 Active clotrimazole-be tamethasone (LOTRISONE) creamIndication s:Intertriginou s candidiasis Apply 1 Application topically in the morning and 1 Application before bedtime. 45 g 5 Active acetaminophen (TYLENOL EXTRA STRENGTH) 500 mg tablet Take 2 tablets (1,000 mg total) by mouth every 6 (six) hours as needed for pain. 5 Active ibuprofen (MOTRIN) 800 mg tablet Take 1 tablet (800 mg total) by mouth every 8 (eight) hours as needed for pain. 5 Active levothyroxine (SYNTHROID, LEVOTHROID) 75 MCG tablet Take 1 tablet (75 mcg total) by mouth in the morning. 90 tablet 3 5 Active levothyroxine (SYNTHROID, LEVOTHROID) 75 MCG tablet TAKE ONE TABLET BY MOUTH EVERY MORNING 90 tablet 1 4 025 Discontin ued(Reord er) levothyroxine (SYNTHROID, LEVOTHROID) 75 MCG tablet Take 1 tablet (75 mcg total) by mouth in the morning. 90 tablet 3 5 025 Discontin ued(Reord er) Active Problems Problem Noted Date Diagnosed Date Peroneal tendon injury 03/13/2025 Hives 03/08/2025 Tear of peroneal tendon of right foot 03/05/2025 Neutropenia, unspecified type 11/27/2024 Acquired hypothyroidism 04/10/2023 Bipolar affective disorder, remission status uns pecified 10/10/2022 Impacted cerumen, bilateral 07/10/2022 Perforation of right tympanic membrane 2 Bilateral hearing loss 07/10/2022 Down syndrome Leukopenia Scoliosis Encounters Date Type Department Care Team Description 05/22/2025 Telephone [facility] [address] [place] [address] Connie Chadwick CMA Er Follow-up 05/21/2025 1:35 PM EDT - 05/21/2025 5:40 PM EDT Emergency [facility] - Emergency [address] [place] [address] Marta Pearson MD Chest pain, unspecified type (Primary Dx) Discharge Disposition: Home 05/21/2025 Travel 05/07/2025 Orders Only [facility] [address] [place] [address] Martin An MD 04/30/2025 Refill [facility] [address] [place] [address] Chelsy Riley [facility] 04/14/2025 11:15 AM EDT Office Visit [facility] [address] [place] [address] Martin An MD Acquired hypothyroidism (Primary Dx); B12 deficiency; Neutropenia, unspecified type 04/13/2025 Travel 04/07/2025 Orders Only [facility] [address] [place] [address] Zoe Maurer RMA Peroneal tendon rupture, right, sequela; Down syndrome 03/27/2025 Telephone [facility] [address] [place] [address] Zoe Maurer RMA 03/27/2025 Telephone [facility] [address] [place] [address] Luz Elena Ramey, KALINA Care Navigation 03/19/2025 Telephone [facility] [address] [place] [address] Kymberly Ramesh, towboat engineer Of Care 03/14/2025 Travel 03/13/2025 7:55 PM EDT - 03/18/2025 11:07 AM EDT Emergency [facility] Care [address] [place] [address] Didier Rojas, Martin Ball MD Peroneal tendon injury (Primary Dx) Discharge Disposition: Home 03/13/2025 Travel 03/05/2025 7:46 AM EDT Anesthesia Event [facility] - Surgery [address] [place] [address] Gaetano Calvert MD Reynolds, Vern D, DO 03/05/2025 7:30 AM EDT - 03/05/2025 10:30 AM EDT Surgery [facility] - Surgery [address] [place] [address] Anish Ng, AUGUSTINE REPAIR TENDON ANKLE [[id number] (CPT )] 03/05/2025 6:11 AM EDT - 03/13/2025 7:01 PM EDT Hospital Encounter [facility] - Acute Care [address] [place] [address] Anish Ng DPMemo Tear of peroneal tendon of right foot (Primary Dx) Discharge Disposition: [facility] Facility-Medicare Cert 03/05/2025 Travel 02/24/2025 10:00 AM EDT Office Visit [facility] Internal Medicine/Pediatric s [address] [place] [address] Martin An MD Urticaria (Primary Dx); Intertriginous candidiasis 02/23/2025 Travel from Last 3 Months Family History Medical History Relation Name Comments Alcohol abuse Father Stanislav Huff Hyperlipidemia Maternal Grandfather Rell Waldron Hypertension Maternal Grandfather Rell Waldron Prostate cancer Maternal Grandfather Rell Waldron Stroke Maternal Grandfather Rell Waldron Diabetes Maternal Grandmother Shanti Chivo Heart disease Maternal Grandmother Shanti Waldron Uterine cancer Maternal Grandmother Shanti Waldron Lung cancer Maternal Uncle Marcial Waldron Arthritis Mother Queenie Hanson COPD Mother Queenie Hanson Depression Mother Queenie Hanson Breast cancer Neg Hx Relation Name Status Comments Father Stanislav Huff Maternal Grandfather Rell Waldron Maternal Grandmother Shanti Waldron Maternal Uncle Marcial Waldron Mother Queenie Hanson Social History Tobacco Use Types Packs/Day Years Used Date Smoking Tobacco: Never Smokeless Tobacco: Never Tobacco Cessation:Counseling Given: Not Answered Alcohol Use Standard Drinks/Week Comments Never 0 (1 standard drink = 0.6 oz pur e alcohol) [facility] Utilities Answer Date Recorded In the past 12 months has th e electric, gas, oil, or water [employer] threatened to shut off services in your [...] answer 03/14/2025 How often do you attend chur or adventist services? Patient unable to answer 03/14/2025 Do you belong to any clubs o r organizations such as baptist groups, unions, fraternal or athletic groups, or [...] Answer Date Recorded Total Score 6 03/14/2025 [facility] [place] of Occupat ional Health - Occupational Stress [...] Recorded Do you need help finding a [facility] career center and/or a training program? No [...] on file Sexual Orientation Not on file Last Filed Vital Signs Vital Sign Reading [...] Mass Index 28.32 05/21/2025 1:38 PM EDT Plan of Treatment Upcoming Encounters Date Type Department Care Team (Late st Contact Info) Description 11/30/2025 1:30 PM EDT Office Visit [facility] [address] [place] [address] [address] [place] [address] Martin An MD [address] [place] [address], [address] [place], [place] [id number] Health Maintenance Due Date Last Done Comments Adult BMI Follow Up Plan 1997 DTaP,Tdap and Td Vaccines (1 - Tdap) 1998 COVID-19 Vaccine (2023-2 5 season) 2025 Influenza Vaccine 05/18/2025 09/22/2020, , 09/26/2012, Additional history exists Depression Screening 03/14/2026 03/14/2025 Adult BMI Screening 05/21/2026 05/21/2025 Tobacco Screening 05/21/2026 05/21/2025 Goals Goal Patient Goal Type Associated Problems Recent Progress Patient-Stated? Author retirement care General Yes Darlene Mendes, RN Note: Evaluation of progress towards goal: Patient and her parents are agreeable to retirement care. Mother states that the patient was at [facility] before and they will accept her back. Referral sent to [facility] and scenario writer spoke with Briana at [facility]. Briana is not familiar with a discussion with the mother. They will review the referral. Medical Devices Implanted Type Area Physical Science Aide Device Identifier Shelf Expiration Date Model / Serial / Lot [place] Sut 2.9mm Shrt Pshlk Bcmps Ea=Bill-Only - [id number] Implanted:Qty: 1 on 03/05/2025 by Anish Ng DPM at [facility] Charlotte Right: Ankle Arthrex [id number] / / Artelon Flexband Twist.30 Implanted:Qty: 1 on 03/05/2025 by Anish Ng DPM at [facility] Other Implant Right: Ankle ARTELON [id number] / NA / [id number] Procedures Procedure Name Priority Date/Time Associated Diagnosis Comments POCT NURSING URINE MACROSCOPIC UA Routine 05/21/2025 5:12 PM EDT ER EXTRA URINE MARBLE STAT 05/21/2025 4:58 PM EDT ER EXTRA URINE CULTURE STAT 05/21/2025 4:58 PM EDT ER EXTRA URINE STAT 05/21/2025 4:58 PM EDT TROP I, HIGH SENSITIVITY 1 HOUR STAT 05/21/2025 3:33 PM EDT XR CHEST 2 VWS STAT 05/21/2025 3:23 PM EDT TROPONIN I, HIGH SENSITIVITY 0 HOUR STAT 05/21/2025 2:18 PM EDT LIPASE STAT 05/21/2025 2:18 PM EDT COMPREHENSIVE METABOLIC PANEL STAT 05/21/2025 2:18 PM EDT MAGNESIUM STAT 05/21/2025 2:18 PM EDT TROPONIN I, HIGH SENSITIVITY 0 HOUR STAT 05/21/2025 2:18 PM EDT EXTRA TUBES LAVENDER TOP Routine 05/21/2025 2:17 PM EDT EXTRA TUBES BLUE TOP Routine 05/21/2025 2:17 PM EDT EXTRA TUBES Routine 05/21/2025 2:17 PM EDT CBC WITH AUTO DIFFERENTIAL STAT 05/21/2025 2:17 PM EDT B-TYPE NATRIURETIC PEPTIDE STAT 05/21/2025 2:17 PM EDT ECG 12-LEAD STAT 05/21/2025 1:33 PM EDT THYROID PROFILE INCLUDES TSH FT4 Routine 04/15/2025 2:57 PM EDT Acquired hypothyroidism VITAMIN B12 Routine 04/15/2025 2:57 PM EDT B12 deficiency CBC WITH AUTO DIFFERENTIAL Routine 04/15/2025 2:57 PM EDT Neutropenia, unspecified type AMB REFERRAL TO [facility] ([facility]) Routine 03/29/2025 Peroneal tendon rupture, right, sequela Down syndrome CBC WITH AUTO DIFFERENTIAL Routine 03/06/2025 5:10 AM EDT EXTRA TUBES BLUE TOP Routine 03/06/2025 5:09 AM EDT EXTRA TUBES Routine 03/06/2025 5:09 AM EDT COMPREHENSIVE METABOLIC PANEL Routine 03/06/2025 5:09 AM EDT XR ANKLE RT 2 VWS Routine 03/05/2025 11:37 AM EDT ANESTHESIA INTUBATION Routine 03/05/2025 7:52 AM EDT MT ANKLE SCOPE,PART DEBRIDEMENT 03/05/2025 7:46 AM EDT right peroneal tendon retinicular tear, peroneal subluxation, ankle synovitis Special Needs 23 hr observation pop-saph block ankle sciope, [employer] Lakshmi MT REPAIR PERONEAL TENDONS,FIB OSTEOTMY 03/05/2025 7:46 AM EDT right peroneal tendon retinicular tear, peroneal subluxation, ankle synovitis Special Needs 23 hr observation pop-saph block ankle sciope, [employer] Lakshmi from Last 3 Months Results * (ABNORMAL) POCT Nursing Urine Macroscopic UA (05/21/2025 5:12 PM EDT) POC Urine Specific [place] 1.020 1.010, 1.015, 1.020, 1.025 05/21/2025 5:01 PM EDT [facility] POC Urine Leukocyte Esterase Trace(A) Negative 05/21/2025 5:01 PM EDT [facility] POC Urine Nitrite Negative Negative 05/21/2025 5:01 PM EDT [facility] POC Urine pH 7.0 5.0, 6.0, 6.5, 7.0, 7.5, 8.0, 8.5, 5.5 05/21/2025 5:01 PM EDT [facility] POC Urine Protein Negative Negative 05/21/2025 5:01 PM EDT [facility] POC Urine Glucose Negative Negative 05/21/2025 5:01 PM EDT [facility] POC Urine Ketones Trace(A) Negative 05/21/2025 5:01 PM EDT [facility] POC Urine Urobilinogen 0.2 E.U./dL 05/21/2025 5:01 PM EDT [facility] POC Urine Bilirubin Negative Negative 05/21/2025 5:01 PM EDT [facility] POC Urine Blood/HGB Trace(A) Negative 05/21/2025 5:01 PM EDT [facility] Urine 05/21/2025 5:12 PM EDT 05/21/2025 5:01 PM EDT us Marta Pearson MD POINT OF CARE TEST ORDERABLES Final Result Performing Organization Address City/[facility] Co de Phone Number [address] [place] [address], [place] * Extra Urine [place] (05/21/2025 4:58 PM EDT) Extra Tube Auto Resulted 05/21/2025 6:01 PM EDT [facility] Urine Urine specimen collection, clean catch / Unknown 05/21/2025 4:58 PM EDT 05/21/2025 5:22 PM EDT us Marta Pearson MD URINE ORDERABLES Final Result Performing Organization Address City/[facility] Co de Phone Number [address] [place] [address], [place] * Extra Urine Culture (05/21/2025 4:58 PM EDT) Extra Tube Auto Resulted 05/21/2025 6:01 PM EDT [facility] Urine Urine specimen collection, clean catch / Unknown 05/21/2025 4:58 PM EDT 05/21/2025 5:22 PM EDT us Marta Pearson MD URINE ORDERABLES Final Result [address] [place] [address], [place] * Extra Urine (05/21/2025 4:58 PM EDT) Extra Tube Auto Resulted 05/21/2025 6:01 PM EDT [facility] Urine Urine specimen collection, clean catch / Unknown 05/21/2025 4:58 PM EDT 05/21/2025 5:22 PM EDT us Marta Pearson MD URINE ORDERABLES Final Result Performing Organization Address [facility] Co de Phone Number [address] [place] [address], [place] * Troponin I, High Sensitivity 1 Hour (05/21/2025 3:33 PM EDT) TROPONIN I, HIGH SENSITIVITY 3 <16 ng/L 05/21/2025 5:26 PM EDT [facility] Blood Venous blood / Unknown Venipuncture / Unknown 05/21/2025 3:33 PM EDT 05/21/2025 3:38 PM EDT us Marta Pearson MD LAB BLOOD ORDERABLES Final Re sult Performing Organization Address City/[facility]/ZIP Co de Phone Number [address] [place] [address], [place] * X-ray chest 2 views (05/21/2025 [...] by Dereck Peterson on 05/21/2025 3:24 PM Marta Pearson MD IMG DIAGNOSTIC IMAGING ORDERA BLES Final Result * Troponin I, High Sensitivity 0 Hour (05/21/2025 2:18 PM EDT) TROPONIN I, HIGH SENSITIVITY 2 <16 ng/L 05/21/2025 2:50 PM EDT [facility] Blood Venous blood / Unknown Venipuncture / Unknown 05/21/2025 2:18 PM EDT 05/21/2025 2:19 PM EDT us Marta Pearson MD LAB BLOOD ORDERABLES Final Re sult [facility] [address] [place] [address], * Magnesium (05/21/2025 2:18 PM EDT) MAGNESIUM 2.0 1.8 - 2.6 mg/dL 05/21/2025 2:44 PM EDT [facility] Blood Venous blood / Unknown Venipuncture / Unknown 05/21/2025 2:18 PM EDT 05/21/2025 2:19 PM EDT us Marta Pearson MD LAB BLOOD ORDERABLES Final Re sult Performing Organization Address City/[facility] Co de Phone Number [address] [place] [address], [place] * (ABNORMAL) Lipase (05/21/2025 2:18 PM EDT) LIPASE 59(H) 17 - 40 U/L 05/21/2025 2:41 PM EDT [facility] Blood Venous blood / Unknown Venipuncture / Unknown 05/21/2025 2:18 PM EDT 05/21/2025 2:19 PM EDT us Marta Pearson MD LAB BLOOD ORDERABLES Final Re sult Performing Organization Address [facility] Co de Phone Number [address] [place] [address], [place] * Comprehensive metabolic panel (05/21/2025 2:18 PM EDT) Only the most recent of2 resultswithin the time period is included. SODIUM 138 134 - 146 mmol/L 05/21/2025 2:44 PM EDT [facility] POTASSIUM 4.0 3.5 - 5.0 mmol/L 05/21/2025 2:44 PM EDT [facility] CHLORIDE 104 98 - 109 mmol/L 05/21/2025 2:44 PM EDT [facility] CARBON DIOXIDE 29 22 - 32 mmol/L 05/21/2025 2:44 PM EDT [facility] ANION GAP 5 5 - 15 mmol/L 05/21/2025 2:44 PM EDT [facility] BLOOD UREA NITROGEN 18 5 - 23 mg/dL 05/21/2025 2:44 PM EDT [facility] CREATININE 0.83 0.40 - 1.00 mg/dL 05/21/2025 2:44 PM EDT [facility] Comment:METHOD TRACEABLE TO IDMS STANDARD GLUCOSE 90 65 - 99 mg/dL 05/21/2025 2:44 PM EDT [facility] CALCIUM 9.0 8.5 - 10.5 mg/dL 05/21/2025 2:44 PM EDT [facility] TOTAL PROTEIN 7.3 6.0 - 8.0 g/dL 05/21/2025 2:44 PM EDT [facility] ALBUMIN 3.8 3.2 - 5.3 g/dL 05/21/2025 2:44 PM EDT [facility] ALKALINE PHOSPHATASE 66 39 - 130 U/L 05/21/2025 2:44 PM EDT [facility] AST 22 <=41 U/L 05/21/2025 2:44 PM EDT [facility] ALT 15 <=31 U/L 05/21/2025 2:44 PM EDT [facility] BILIRUBIN,TOTAL 0.3 0.3 - 1.2 mg/dL 05/21/2025 2:44 PM EDT [facility] EGFR Non-Race Dependent 89 >=60 ml/min/1.7 3sq.m 05/21/2025 2:44 PM EDT [facility] Comment: eGFR not reported due to non-numeric value for Creatinine. Reported eGFR is based on the CKD-EPI 2020 equation that does not use a race coefficient. Blood Venous blood / Unknown Venipuncture / Unknown 05/21/2025 2:18 PM EDT 05/21/2025 2:19 PM EDT us Marta Pearson MD LAB BLOOD ORDERABLES Final Re sult [address] [place] [address], [place] * Lavender Top (05/21/2025 2:17 PM EDT) Extra Tube Auto Resulted 05/21/2025 4:01 PM EDT [facility] Blood Venous blood / Unknown Venipuncture / Unknown 05/21/2025 2:17 PM EDT 05/21/2025 2:19 PM EDT us Marta Pearson MD LAB BLOOD ORDERABLES Final Re sult Performing Organization Address [facility] Co de Phone Number [address] [place] [address], [place] * Light Blue Top (05/21/2025 2:17 PM EDT) Only the most recent of2 resultswithin the time period is included. Extra Tube Auto Resulted 05/21/2025 4:01 PM EDT [facility] Blood Venous blood / Unknown 05/21/2025 2:17 PM EDT 05/21/2025 2:19 PM EDT us Marta Pearson MD LAB BLOOD ORDERABLES Final Re sult Performing Organization Address [facility] Co de Phone Number [address] [place] [address], [place] * (ABNORMAL) CBC auto differential (05/21/2025 2:17 PM EDT) Only the most recent of3 resultswithin the time period is included. WBC 3.2(L) 4 - 11 x10E9/L 05/21/2025 2:26 PM EDT [facility] RBC Count 3.90 3.8 - 5.2 X10E12/L 05/21/2025 2:26 PM EDT [facility] Hemoglobin 12.9 11.7 - 15.5 g/dL 05/21/2025 2:26 PM EDT [facility] Hematocrit 38.5 35 - 47 % 05/21/2025 2:26 PM EDT [facility] MCV 99 80 - 100 fL 05/21/2025 2:26 PM EDT [facility] MCH 33.1 27 - 34 pg 05/21/2025 2:26 PM EDT [facility] MCHC 33.6 32 - 36 g/dL 05/21/2025 2:26 PM EDT [facility] RDW 14.3 11.5 - 15 % 05/21/2025 2:26 PM EDT [facility] Platelet Count 199 150 - 450 X10E9/L 05/21/2025 2:26 PM EDT [facility] MPV 7.2 7 - 12 fL 05/21/2025 2:26 PM EDT [facility] Neutrophils % 53.2 % 05/21/2025 2:26 PM EDT [facility] Lymphocytes % 34.9 % 05/21/2025 2:26 PM EDT [facility] Monocytes % 8.7 % 05/21/2025 2:26 PM EDT [facility] Eosinophils % 2.9 % 05/21/2025 2:26 PM EDT [facility] Basophils % 0.3 % 05/21/2025 2:26 PM EDT [facility] Neutrophils Absolute (A) 1.7 1.5 - 6.6 10*3/uL 05/21/2025 2:26 PM EDT [facility] Lymphocytes Absolute 1.1 1.0 - 3.5 10*3/uL 05/21/2025 2:26 PM EDT [facility] Monocytes Absolute 0.3 0.0 - 0.9 10*3/uL 05/21/2025 2:26 PM EDT [facility] Eosinophils Absolute 0.1 0.0 - 0.4 10*3/uL 05/21/2025 2:26 PM EDT [facility] Basophils Absolute 0.0 0.0 - 0.2 10*3/uL 05/21/2025 2:26 PM EDT [facility] Differential Type AUTOMATED DIFFERENTIAL 05/21/2025 2:26 PM EDT [facility] Blood Venous blood / Unknown Venipuncture / Unknown 05/21/2025 2:17 PM EDT 05/21/2025 2:20 PM EDT us Marta Pearson MD LAB BLOOD ORDERABLES Final Re sult Performing Organization Address [facility]/ZIP Co de Phone Number [address] [place] [address], [place] * B-type natriuretic peptide (05/21/2025 2:17 PM EDT) BNP 43 <=100 pg/mL 05/21/2025 2:48 PM EDT [facility] Blood Venous blood / Unknown Venipuncture / Unknown 05/21/2025 2:17 PM EDT 05/21/2025 2:19 PM EDT us Marta Pearson MD LAB BLOOD ORDERABLES Final Re sult Performing Organization Address [facility] Co de Phone Number [address] [place] [address], [place] * Electrocardiogram, 12-lead (05/21/2025 1:33 PM EDT) 05/21/2025 1:33 PM EDT us Marta Pearson MD ECG ORDERABLES Final Result Performing Organization Address City/[facility]/ZIP Co de Phone Number [id number] * Thyroid profile includes TSH FT4 (04/15/2025 2:57 PM EDT) FREE T4 1.21 0.61 - 1.60 ng/dL 04/15/2025 10:37 PM EDT [facility] TSH 1.41 0.49 - 4.67 uIU/mL 04/15/2025 10:37 PM EDT [facility] Blood Venous blood / Unknown Venipuncture / Unknown 04/15/2025 2:57 PM EDT 04/15/2025 2:57 PM EDT us Martin An MD LAB BLOOD ORDERABLES Final Re sult Performing Organization Address City/[facility]/ZIP Co de Phone Number [facility] [address] [place] [address], [place] [phone] * Vitamin B12 (04/15/2025 2:57 PM EDT) VITAMIN B12 555 180 - 914 pg/mL 04/15/2025 10:46 PM EDT [facility] Blood Venous blood / Unknown Venipuncture / Unknown 04/15/2025 2:57 PM EDT 04/15/2025 2:57 PM EDT us Martin An MD LAB BLOOD ORDERABLES Final Re sult Performing Organization Address [facility] Co de Phone Number [facility] [address] [place] [address], [place] [phone] * Ambulatory Referral to Home Health ([facility]) (03/29/2025) 03/29/2025 us Martin An MD OUTPATIENT REFERRAL ORDERABLE S Final Result MANUALLY TRANSCRIBED RESULTS * X-ray ankle right 2 views (03/05/2025 11:37 AM EDT) Anatomical Region Laterality Modality Lower Extremities, MSK, Ankle Right Co mputed Radiography 03/05/2025 12:2 9 PM EDT Narrative 03/05/2025 12:30 PM EDT XR ANKLE RT 2 VWS HISTORY: Post-operative evaluation. Pain COMPARISON: none IMPRESSION: Casting material obscures fine osseous detail. Apparent syndesmotic operative changes. Contour irregularity distal fibula, possible fracture, correlate with recent imaging, if available elsewhere. Finalized by Horacio Hong MD on 03/05/2025 12:30 PM Procedure Note Horacio Hong MD - 03/05/2025 XR ANKLE RT 2 VWS HISTORY: Post-operative evaluation. Pain COMPARISON: none IMPRESSION: Casting material obscures fine osseous detail. Apparent syndesmoticoperative changes. Contour irregularity distal fibula, possible fracture,correlate with recent imaging, if available elsewhere. Finalized by Horacio Hong MD on 03/05/2025 12:30 PM Anish Ng DPM IMG DIAGNOSTIC IMAGING EUGENIO HUFF Final Result * MT AN ELECTIVE SUPRAGLOTTIC AIRWAY (03/05/2025 7:52 AM EDT) Erlinda Clark APRN-CRNA - 03/05/2025 7:52 AM EDT ANGELICA Hagen 03/05/2025 8:19 AM Airway Patient location during procedure: OR Urgency: Elective Date/Time: 03/05/2025 7:52 AM Airway not difficult IV In Situ: Peripheral General Information and Staff Service Provider: ANGELICA Hagen Placed by: ANGELICA Hagen Patient Identified, IV Checked, Risks and Benefits Discussed, Surgical Consent, Monitors and Equipment Checked, Pre-op Evaluation and Timeout Performed Fire Risk Assessment Score: 0 Consent for Emergent Airway (if performed for an anesthetic, see related documentation for consents) Risks and benefits: risks, benefits and alternatives were discussed Indications and Patient Condition Sedation level: Deep Preoxygenated: yesPatient position: Supine and Sniffing MILS maintained throughout Mask difficulty assessment: Not Attempted Indications for airway management: Anesthesia Complications: No Complicating Factors: No Final Airway Details Final airway type: Supraglottic Airway Successful Airway: LMA and I GelOral SGA size: 4 Dentition Check Pre: See Pre-Evaluaton documentation Post Intubation Trauma? No Placement verified by: chest auscultation, capnography and symmetrical chest wall movement Number of other approaches attempted: 0 Number of attempts at approach: 1 Airway Brand: LMA and I Gel Additional Comments Induction on stretcher due to patient anxiety with transfer to OR table. us Gaetano Calvert MD ANESTHESIA ORDERABLES Final R esult from Last 3 Months Insurance [place] Advance Directives * Full Code (Latest Code Status on File) Date Activated Date Inactivated Comments 03/15/2025 11:04 AM 03/18/2025 1:12 PM Care Teams Archeology Faculty Member Relationship Specialty Start Date End Date Martin An MD [address] [place] [address], [address] [place] [id number] PCP - General Pediatrics 08/20/23
--- OUTSIDE RECORDS SUMMARY | 2025-05-22 18:01 | XMS_ITS | Encounter Summary ---
Author Organization [email or web address] [facility] Address [id number] [address] [place] [address] Care Team Providers Care Solidworks Drafter Name Role Phone Martin An MD Primary Care Provider [phone] Reason for Visit * Reason Onset Date Comments Er Follow-up 05/22/2025 Encounter Details Date Type Department Care Team (Late st Contact Info) Description 05/22/2025 Telephone [facility] Internal Medicine/Pediatrics [address] [address] Connie Chadwick CMA Er Follow-up Social History Tobacco Use Types Packs/Day Years Used Date Smoking Tobacco: Never Smokeless Tobacco: Never Alcohol Use Standard Drinks/Week Comments Never 0 (1 standard drink = 0.6 oz pur e alcohol) [facility] Utilities Answer Date Recorded In the past 12 months has th e electric, gas, oil, or water company threatened to shut off services in your [...] 03/14/2025 How often do you attend chur ch or yarsani services? Patient unable to answer 03/14/2025 Do you belong to any clubs o r organizations such as caodaism groups, unions, fraternal or athletic groups, or [...] Answer Date Recorded Total Score 6 03/14/2025 [facility] of Occupat ional Health - Occupational Stress [...] Recorded Do you need help finding a [facility] career [facility] and/or a training program? No [...] on file documented as of this encounter Miscellaneous Notes * Telephone Encounter - Connie Chadwick CMA - 05/22/2025 8:27 AM EDT ED Outreach This documentation is being used for Transition of Care purposes: Yes/No: Yes ED Outreach Date: May 22, 2025 ED Outreach Method: COMMUNICATION METHOD: Telephone ED Outreach Attempt: first ED Outreach Outcome: Contacted Patient Name of ED Facility: [facility] Date of ED Discharge: 05/21/2025 Discharge Diagnosis: Chest pain ED Chief Complaint: heartburn Current Symptom Status: improving- spoke with patient's guardian, hipaa verified. She states that patient is still having chest discomfort. No known injuries to the area. She states that patient is resting currently. Denies other concerns at this time. Medication Changes Reviewed: yes Medication Questions/Concerns: denies concerns Follow-up PCP Scheduled: 05/22/2025 Follow-up Specialist Scheduled:n/a Follow up Testing Scheduled: n/a Patient Contacted Office Prior to ED Visit: No. Patient made aware of on-call provider and same dayappointment availability. Additional Comments: Patient will contact the office with additional concerns. documented in this encounter Plan of Treatment Upcoming Encounters Date Type Department Care Team (Late st Contact Info) Description 11/30/2025 1:30 PM EDT Office Visit [facility] Internal Medicine/Pediatrics [address] [place] [address] [address] [place] [address] Martin An MD [address] [place] [address], [address] [place], [place] [id number] documented as of this encounter Goals Goal Patient Goal Type Associated Problems Recent Progress Patient-Stated? Author prison care General Yes Darlene Mendes RN Note: Evaluation of progress towards goal: Patient and her parents are agreeable to prison care. Mother states that the patient was at [facility] before and they will accept her back. Referral sent to [facility] [place] and advertising copywriter spoke with Briana at [facility]. Briana is not familiar with a discussion with the mother. They will review the referral. documented as of this encounter Visit Diagnoses Not on filedocumented in this encounter Additional Health Concerns Assessment Noted Time PHQ-9 Depression Total Score: 6 03/14/20 25 1:52 AM EDT documented as of this encounter Care Teams Solidworks Drafter Relationship Specialty Start Date End Date Martin An MD [address] [place] [address], [address] [place] [address] PCP - General Pediatrics 08/20/23 documented as of this encounter
--- OUTSIDE RECORDS SUMMARY | 2025-05-22 18:01 | XMS_ITS | Encounter Summary ---
Author Organization [facility] Address [address] [place] [address] Care Team Providers Care Principal Consulting Engineer Name Role Phone Martin An MD Unavailable [phone] Martin An MD Primary Care Provider + Analia Colvin RN Unavailable Unavaila Rio Reardon DO Unavailable [phone] Source Comments In the event this information is protected by the Federal Confidentiality of Alcohol and Drug AbusePatient Records regulations: The Federal rules restrict any use of the information to criminally investigate or prosecute any alcohol or drug abuse patient.[facility] Encounter Details Date Type Department Care Team (Late st Contact Info) Description 05/22/2024 Patient Msg Neurology [address] [place] [id number] Provider, Ccf Admission Social History Tobacco Use Types Packs/Day Years Used Date Smoking Tobacco: Never Smokeless Tobacco: Never Alcohol Use Standard Drinks/Week Comments Never 0 (1 standard drink = 0.6 oz pur e alcohol) PHQ-2 Answer Date Recorded PHQ-2 score 3 07/13/2023 Area Deprivation Index Answer Date Wayne rded National Score (1-100), lower number is lower ri sk 71 01/18/2023 State Score (1-10), lower number is lower risk 5 01/18/2023 Data from: https://www.neighborhoodatlas.[facility]/. Last address used for calculation [address] 01/18/2023 Comments No Sex and Gender Information Value Date Recorded Sex Assigned at Female 10/24/2023 11:57 AM EST Legal Sex Female 10:17 AM EDT Gender Identity Female 10/24/2023 11:57 AM EST Sexual Orientation Straight 10/24/2023 11 :57 AM EST documented as of this encounter Functional Status * Are you deaf or do you have serious difficulty hearing? Answer Date of Assessment Author Yes 11/29/2023 4:10 PM EDT Macy Mcmahan RN * Are you blind or do you have serious difficulty seeing, even when wearing glasses? Answer Date of Assessment Author No 11/29/2023 4:10 PM EDT Macy Mcmahan RN * Do you have serious difficulty walking or climbing stairs? Answer Date of Assessment Author No 11/29/2023 4:10 PM EDT Macy Mcmahan RN * Do you have difficulty dressing or bathing? Answer Date of Assessment Author No 11/29/2023 4:10 PM EDT Macy Mcmahan RN * Because of a physical, mental, or emotional condition, do you have difficulty doing errands alone such as visiting a doctor's office or shopping? Answer Date of Assessment Author Yes 11/29/2023 4:10 PM EDT Macy Mcmahan RN documented as of this encounter Mental Status * Because of a physical, mental, or emotional condition, do you have serious difficulty concentrating, remembering, or making decisions? Answer Entry Date Author Yes 11/29/2023 4:10 PM EDT Macy Mcmahan RN documented in this encounter Plan of Treatment Not on file documented as of this encounter Visit Diagnoses Not on filedocumented in this encounter Care Teams Principal Consulting Engineer Relationship Specialty Start Date End Date Martin An MD [address] [place] [address], [place] [address] PCP - General Internal Medicine 08/01/22 Martin An MD [address] [place] [address], [address] [place] [address] Internal Medicine 08/01/22 Analia Colvin, RN [address] [place] [address] 07/10/24 Rio Hill DO [address] [place] [address] Primary Staff Physician Cardiology 08/01/24 documented as of this encounter
--- OUTSIDE RECORDS SUMMARY | 2025-05-22 18:01 | XMS_ITS | Encounter Summary ---
Author Organization [facility] Address [address] [place] [address] Care Team Providers Care Mathematical Scientist Name Role Phone Martin An MD Unavailable [phone] Martin An MD Primary Care Provider + Analia Colvin RN Unavailable Unavaila Rio Reardon DO Unavailable [phone] Source Comments In the event this information is protected by the Federal Confidentiality of Alcohol and Drug AbusePatient Records regulations: The Federal rules restrict any use of the information to criminally investigate or prosecute any alcohol or drug abuse patient.[facility] Encounter Details Date Type Department Care Team (Late st Contact Info) Description 02/08/2024 Patient Msg Pulmonary Medicine [address] [place] [address] Monalisa Gould APRN.LABORER [employer]UM[employer]AVING [address] [facility] [address] [place] [address] Chest Xray Social History Tobacco Use Types Packs/Day Years [...] is lower risk 5 01/18/2023 Data from: https://www.neighborhoodatlas.medicine.[facility]/. Last address used for calculation [address] 01/18/2023 Comments No Sex and Gender Information [...] Entry Date Author Yes 11/29/2023 4:10 PM MIRIAMT Macy Mcmahan RN documented in this encounter Plan of Treatment Not on file documented as of this encounter Visit Diagnoses Not on filedocumented in this encounter Care Teams Mathematical Scientist Relationship Specialty Start Date End Date Martin An MD [address] [place] [address], [address] [place] [address] PCP - General Internal Medicine 08/01/22 Martin An MD [address] [place] [address], [address] [place] [address] Internal Medicine 08/01/22 Analia Colvin, KALINA [address] [place] [address] 07/10/24 Rio Hill DO [address] [place] [address] Primary Staff Physician Cardiology 08/01/24 documented as of this encounter
--- OUTSIDE RECORDS SUMMARY | 2025-05-22 18:01 | XMS_ITS | Patient Health Record ---
Author Organization [facility] [place] Address [address] [place] [address] Care Team Providers Care Account Leader Name Role Phone None, Unknown or Primary Care Provider Unavailab le Allergies Allergen (clinical drug ingredient) Drug/Non Drug Allergy documented on EMR Reaction Allergy Type Onset Date Status cefaclor Cefaclor ER Unknown Drug Allergy Activ e Reason For Referral No Information Medications Medication SIG (Take, Route, Frequency, Duration) Notes Start Date End Date Status Levothyroxine Sodium 75 MCG 1 tablet in the morning on an empty stomach Orally Once a day Active Progesterone Not-Sohan ing Lidocaine 5 % 1 patch remove after 12 hours Externally Once a day Active Vitamin D3 Not-Takin g Ciprofloxacin Not-Ta cathryn Evening [place] Oil 1000 MG as directed Orally Active Estrogens Conjugated Not-Taking Niacin 250 MG 1 tablet with food Orally Daily Active OXcarbazepine 150 MG 1 tablet Orally Daily Active Multi For Her - as directed Orally Active Naproxen 500 MG 1 tablet with food o r milk as needed Orally BID Active Cyclobenzaprine HCl 5 MG 1 tablet at bed time as needed Orally Every 8 hrs for muscle spasms Active carBAMazepine ER Not -Taking Escitalopram Oxalate 20 MG 1 tablet Oral ly Once a day for 30 day(s) Active Biotin 5 MG 1 capsule Orally Onc e a day for 30 day(s) Active traZODone HCl 50 MG 1 tablet at bedtime Orally Once a day Active Cyanocobalamin 1000 MCG 1 tablet Orally Once a day for 30 day(s) Active Vitamin C 500 MG 1 tablet Orally Once a day for 30 day(s) Active Social History Tobacco Use: Social History Observation Description Date Details (start date - stop date) Never Smoker NA - NA Tobacco Use/Smoking Question Answer Notes Patient is a nonsmoker Alcohol Screen (Audit-C) Question Answer Notes Did you have a drink containing alcohol in the p ast year? No Points 0 Interpretation Negative Plan Of Treatment Pending Test Test Name Order Date UA (URINALYSIS, COMPLETE) 12/28/2022 Insurance Providers Payer Name Payer Address Payer Phone Subscriber Number Group Number Insured Name Patient Relationship to Insured Coverage Start Date Coverage End Date [employer] [facility] EXCH[facility] [address] [place] [address] [id number] Caitlin Huff Self - patient is the insured 2 MEDICAID [place] 2ND INS [address] [place], [place] [id number] Caitlin Huff Self - patient is the insured Medical (General) History Medical History History ICD Code Bipolar frequent ear infections Leukopenia Anxiety Arthritis Depression Heart murmur Scoliosis Disease of thyroid gland Visual impairment Surgical History Surgery Date(Month/Year) urethra stretched/bladder tonsillectomy/adenoidectomy hysterectomy knee arthroscopy Rods in back from scoliosis Hospitalization History Reason Date(Month/Year) ER: Back pain 12/07
--- OUTSIDE RECORDS SUMMARY | 2025-05-22 18:01 | XMS_ITS | Encounter Summary ---
Author Organization [facility] tem Address [facility]-[id number] [address] [place] [address] Care Team Providers Care Die Storage Worker Name Role Phone Martin An MD Primary Care Provider [phone] Encounter Details Date Type Department Care Team (Late st Contact Info) Description 11/30/2022 Telephone [facility] Internal Medicine/Pediatrics [address] [place] [address] 1 [place] [address] Martin An MD [address] [place] [address], [address] [place] [address] Social History Tobacco Use Types Packs/Day Years Used Date Smoking Tobacco: Never Smokeless Tobacco: Never Alcohol Use Standard Drinks/Week Comments Never 0 (1 standard drink = 0.6 oz pur e alcohol) Childcare Answer Date Recorded Childcare Unknown 02/25/2019 Employment Answer Date Recorded Employment Unknown 02/25/2019 Comments No Sex and Gender Information Value Date Recorded Sex Assigned at Not on file Legal Sex Female 7:50 PM EDT Gender Identity Not on file Sexual Orientation Not on file COVID-19 Exposure Response Date Recorded In the last month, have you been in contact with someone who was confirmed or suspected to have Coronavirus / COVID-19? No / Unsure 11/30/2022 2:46 PM EDT documented as of this encounter Miscellaneous Notes * Telephone Encounter - Simi Chauhan - 11/30/2022 11:42 AM EDT Queenie called and is wondering if a referral could be put into Dr. Crabtree on [address]. She triedto call to get her in and they told her that she needed a referral. She said that Hope is in a lot of pain. Please advise . documented in this encounter Plan of Treatment Upcoming Encounters Date Type Department Care Team (Late st Contact Info) Description 11/30/2025 1:30 PM EDT Office Visit [facility] Internal Medicine/Pediatrics [address] [place] [address] [address] [place] [phone] Martin An MD [address] [place] [address], [address] [place], [place] [id number] documented as of this encounter Visit Diagnoses Not on filedocumented in this encounter Care Teams Die Storage Worker Relationship Specialty Start Date End Date Martin An MD [address] [place] [address], [address] [place], [place] [id number] PCP - General Pediatrics 08/20/23 documented as of this encounter
--- OUTSIDE RECORDS SUMMARY | 2025-05-22 18:01 | XMS_ITS | Encounter Summary ---
Author Organization [facility] Address [address] [place] [address] Care Team Providers Care Sodder Name Role Phone Martin An MD Unavailable [phone] Martin An MD Primary Care Provider + Analia Colvin RN Unavailable Unavaila Rio Reardon DO Unavailable [phone] Source Comments In the event this information is protected by the Federal Confidentiality of Alcohol and Drug AbusePatient Records regulations: The Federal rules restrict any use of the information to criminally investigate or prosecute any alcohol or drug abuse patient.[facility] Encounter Details Date Type Department Care Team (Late st Contact Info) Description 07/16/2024 [place] [address] Provider, [facility]cf Actionable Imaging Result Notification Patient Outreach Social History Tobacco Use Types Packs/Day Years [...] is lower risk 5 01/18/2023 Data from: https://www.neighborhoodatlas.[facility]/. Last address used for calculation [address] [...] difficulty hearing? Answer Date of Assessment Author No 06/14/2024 1:46 PM Javier Patel RN * Are you blind or do you have serious difficulty seeing, even when wearing glasses? Answer Date of Assessment Author No 06/14/2024 1:46 PM Javier Patel RN * Do you have serious difficulty walking or climbing stairs? Answer Date of Assessment Author No 06/14/2024 1:46 PM Javier Patel RN * Do you have difficulty dressing or bathing? Answer Date of Assessment Author No 06/14/2024 1:46 PM Javier Patel RN * Because of a physical, mental, or emotional condition, do you have difficulty doing errands alone such as visiting a doctor's office or shopping? Answer Date of Assessment Author Yes 06/14/2024 1:46 PM Javier Patel RN documented as of this encounter Mental Status * Because of a physical, mental, or emotional condition, do you have serious difficulty concentrating, remembering, or making decisions? Answer Entry Date Author Yes 06/14/2024 1:46 PM Javier Patel RN documented in this encounter Plan of Treatment Not on file documented as of this encounter Visit Diagnoses Not on filedocumented in this encounter Care Teams Sodder Relationship Specialty Start Date End Date Martin An MD [address] [place] [address], [address] [place] [address] PCP - General Internal Medicine 08/01/22 Martin An MD [address] [place] [address], [address] [place] [address] Internal Medicine 08/01/22 Analia Colvin, KALINA [address] [place] [address] 07/10/24 Rio Hill DO [address] [place] [address] Primary Staff Physician Cardiology 08/01/24 documented as of this encounter
--- OUTSIDE RECORDS SUMMARY | 2025-05-22 18:01 | XMS_ITS | Encounter Summary ---
Author Organization [employer] [facility] Address [id number] [address] [place] [address] Care Team Providers Care Carriage Operator Name Role Phone Martin An MD Primary Care Provider [phone] Encounter Details Date Type Department Care Team (Latest Contact Info) Description 05/21/2025 Travel Social History Tobacco Use Types Packs/Day Years Used Date Smoking Tobacco: Never Smokeless Tobacco: Never Alcohol Use Standard Drinks/Week Comments Never 0 (1 standard drink = 0.6 oz pur e alcohol) [facility] Utilities Answer Date Recorded In the past 12 months has [employer] electric, gas, oil, or water [employer] threatened to shut off services in your [...] answer 03/14/2025 How often do you attend [facility] or mormonism services? Patient unable to answer 03/14/2025 Do you belong to any clubs o r organizations such as zoroastrianism groups, unions, fraternal or athletic groups, or [...] Answer Date Recorded Total Score 6 03/14/2025 [facility] of Occupat ional Health - Occupational Stress [...] Recorded Do you need help finding a [facility] career center and/or a training program? [...] on file documented as of this encounter Plan of Treatment Upcoming Encounters Date Type Department Care Team (Late st Contact Info) Description 11/30/2025 1:30 PM EDT Office Visit [facility] Internal Medicine/Pediatrics [address] [place] [address] [address] [place] [phone] Martin An MD [address] [place] [address], [address] [place], [place] [phone] documented as of this encounter Goals Goal Patient Goal Type Associated Problems Recent Progress Patient-Stated? Author penitentiary care General Yes Darlene Mendes, RN Note: Evaluation of progress towards goal: Patient and her parents are agreeable to penitentiary care. Mother states that the patient was at [facility] before and they will accept her back. Referral sent to [facility] and rewriter spoke with Briana at [facility]. Briana is not familiar with a discussion with the mother. They will review the referral. documented as of this encounter Visit Diagnoses Not on filedocumented in this encounter Additional Health Concerns Assessment Noted Time PHQ-9 Depression Total Score: 6 03/14/20 25 1:52 AM EDT documented as of this encounter Care Teams Carriage Operator Relationship Specialty Start Date End Date Martin An MD [address] [place] [address], [address] [place], [place] [phone] PCP - General Pediatrics 08/20/23 documented as of this encounter
--- OUTSIDE RECORDS SUMMARY | 2025-05-22 18:01 | XMS_ITS | Encounter Summary ---
Author Organization [employer] tem Address [id number] [address] [place] [address] Care Team Providers Care Windshield Wiper Repairer Name Role Phone Martin An MD Primary Care Provider [phone] Encounter Details Date Type Department Care Team (Late st Contact Info) Description 02/17/2025 Telephone [facility] Internal Medicine/Pediatrics [address] [place] [address] 1 [place] [address] Martin An MD [address] [place] [address], [address] [place] [address] Social History Tobacco Use Types Packs/Day Years Used Date Smoking Tobacco: Never Smokeless Tobacco: Never Alcohol Use Standard Drinks/Week Comments Never 0 (1 standard drink = 0.6 oz pur e alcohol) Overall Financial Resource Strain (CARDIA) Answe r Date Recorded How hard is it for you to pa y for the very basics like food, housing, medical care, and heating? Not hard at all 08/26/2024 PHQ-2 Answer Date Recorded Total Score 8 11/27/2024 Childcare Answer Date Recorded Childcare Unknown 02/25/2019 Employment Answer Date Recorded Employment Unknown 02/25/2019 Hunger Screening Answer Date Recorded Within the past 12 months we worried whether our food would run out before we got money to buy more. Never True 11/27/2024 Within the past 12 months th e food we bought just didn't last and we didn't have money to get more. Never True 11/27/2024 Comments No Sex and Gender Information Value Date Recorded Sex Assigned at Not on file Legal Sex Female 7:50 PM EDT Gender Identity Not on file Sexual Orientation Not on file documented as of this encounter Miscellaneous Notes * Telephone Encounter - Simi Chauhan - 02/17/2025 11:48 AM EDT Jemma from [facility] podiatry, Dr Anish Ng, is doing surgery on March 05. They need a pre op notefor her. Do you need to see her or can you just clear her? Please advise * Telephone Encounter - Martin An MD - 02/17/2025 11:48 AM EDT I can just clear her * Telephone Encounter - Simi Chauhan - 02/17/2025 11:48 AM EDT She is having a repair of peroneal tendon right side, and also an ankle arthroscopy with debridement. She will be admitted for 23 hours and then go to a SN. documented in this encounter Plan of Treatment Upcoming Encounters Date Type Department Care Team (Late st Contact Info) Description 11/30/2025 1:30 PM EDT Office Visit [facility] Internal Medicine/Pediatrics [address] [place] [address] [address] [place] [address] Martin An MD [address] [place] [address], [address] [place] [address] documented as of this encounter Visit Diagnoses Not on filedocumented in this encounter Additional Health Concerns Assessment Noted Time PHQ-9 Depression Total Score: 8 11/28/19 25 10:00 AM EDT documented as of this encounter Care Teams Windshield Wiper Repairer Relationship Specialty Start Date End Date Martin An MD [address] [place] [address], [address] [place] [address] PCP - General Pediatrics 08/20/23 documented as of this encounter
--- OUTSIDE RECORDS SUMMARY | 2025-05-22 18:02 | XMS_ITS | Encounter Summary ---
Author Organization [facility] Healthcare Address [address] [place] [address] Care Team Providers Care Direct Entry Midwife Name Role Phone Martin An MD Primary Care Provider [phone] Encounter Details Date Type Department Care Team (Latest Contact Info) Description 05/22/2025 Travel Social History Tobacco Use Types Packs/Day [...] Description 05/28/2025 3:30 PM EDT Treatment [facility] [address] [place] [phone] Candace Johnson, HYDRAULIC MECHANIC [address] [place] [address] 05/29/2025 1:30 PM EDT Treatment [facility] [address] [place] [address] Candace Johnson, HYDRAULIC MECHANIC [address] [facility] [place] [address] 06/01/2025 10:30 AM EDT [facility] [address] [place] [phone] Anish Ng, DPM [address] [place], [place] [phone] 06/02/2025 11:30 AM EDT Treatment [facility] [address] [facility] [place] [address] Darrian Jacquelyn, [facility] 06/04/2025 11:30 AM EDT Treatment [facility] [address] [facility] [place] [address] Candace Johnson, [facility] [address] [place], [place] [phone] documented as of this encounter Visit Diagnoses Not on filedocumented in this encounter Care Teams Direct Entry Midwife Relationship Specialty Start Date End Date Martin An MD [address] [place] [address], [address] [place] [address] PCP - General Family Medicine 01/12/25 documented as of this encounter
--- OUTSIDE RECORDS SUMMARY | 2025-05-22 18:02 | XMS_ITS | Clinical Summary ---
Author Organization [facility] Address [address] [facility] [address], [address] [place] [address] Care Team Providers Care Cardiology Coordinator Name Role Phone Martin An MD Primary Care Provider [phone] Allergies No known active allergies Medications escitalopram (LEXAPRO) 20 MG tablet Take 1 tablet by mouth every morning (before breakfast) Active traZODone (DESYREL) 50 MG tablet Take 0.25 tablets by mouth nightly Active OXcarbazepine (TRILEPTAL) 150 MG tablet Take 1 tablet by mouth 2 times daily 60 tablet 1 05/17/2024 Active lidocaine 4 % external patch Place 1 patch onto the skin daily 30 patch 05/18/2024 Active levothyroxine (SYNTHROID) 88 MCG tablet Take 1 tablet by mouth daily 30 tablet 1 05/17/2024 Active ibuprofen (ADVIL;MOTRIN) 600 MG tablet Take 1 tablet by mouth 3 times daily as needed for Pain 05/17/2024 Active Active Problems Problem Noted Date Diagnosed Date Abnormal EEG 05/17/2024 Loss of consciousness 05/16/2024 Hypotension 05/16/2024 Abdominal pain, right upper quadrant 05/16/2024 Bipolar disorder 05/16/2024 Seizure-like activity 05/16/2024 Down syndrome Social History Tobacco Use Types Packs/Day Years Used Date Smoking Tobacco: Never Smokeless Tobacco: Never Tobacco Cessation:Counseling Given: Not Answered Alcohol Use Standard Drinks/Week Comments Never 0 (1 standard drink = 0.6 oz pur e alcohol) [facility] Utilities Answer Date Recorded In the past 12 months has e electric, gas, oil, or water company threatened to shut off services in your home? Patient unable to answer 05/16/2024 Hunger Vital Sign Answer Date Recorded Within the past 12 months, y ou worried that your food would run out before you got the money to buy more. Patient unable to answer 05/16/2024 Within the past 12 months, t he food you bought just didn't last and you didn't have money to get more. Patient unable to answer 05/16/2024 PRAPARE - Transportation Answer Date Re corded In the past 12 months, has l ack of transportation kept you from medical appointments or from getting medications? Patient unable to answer 05/16/2024 In the past 12 months, has l ack of transportation kept you from meetings, work, or from getting things needed for daily living? Patient unable to answer 05/16/2024 Housing Stability Vital Sign Answer Elian e Recorded In the last 12 months, was t here a time when you were not able to pay the mortgage or rent on time? Patient unable to answer 05/16/2024 In the past 12 months, how m any times have you moved where you were living? 0 05/16/2024 At any time in the past 12 m [facility], were you homeless or living in a chcf (including now)? Patient unable to answer 05/16/2024 Food Insecurity Answer Date Recorded Within the past 12 months, y ou worried that your food would run out before you got the money to buy more. 97 05/16/2024 Within the past 12 months, t he food you bought just didn't last and you didn't have money to get more. 97 05/16/2024 Interpersonal Safety Domain Source: IP Abuse Scr eening Answer Date Recorded Physical abuse Unable to assess 05/16/2024 Verbal abuse Unable to assess 05/16/2024 Emotional abuse Unable to assess 05/16/2024 Financial abuse Unable to assess 05/16/2024 Sexual abuse Unable to assess 05/16/2024 Comments No Sex and Gender Information Value Date Recorded Sex Assigned at Not on file Legal Sex Female 12:12 PM EST Gender Identity Not on file Sexual Orientation Not on file Last Filed Vital Signs Vital Sign Reading Time Taken Comments Blood Pressure 97/42 05/17/2024 3:36 PM EDT Pulse 73 05/17/2024 3:36 PM EDT Temperature 36.7 C (98.1 F) 05/17/2024 3:36 PM EDT Respiratory Rate 14 05/17/2024 4:00 AM EDT Oxygen Saturation 98% 05/17/2024 3:36 PM EDT Inhaled Oxygen Concentration - - Weight 62 kg (136 lb 11 oz) 05/16/2024 3:34 AM E DT Height 154 cm (5' 0.63 ) 05/16/2024 3:34 AM EDT Body Mass Index 26.14 05/16/2024 3:34 AM EDT Plan of Treatment Health Maintenance Due Date Last Done Comments Depression Monitoring 1991 HIV screen 1994 Hepatitis C screen 1997 DTaP/Tdap/Td vaccine (1 - Tdap) 1998 Hepatitis B vaccine (1 of 3 - 19+ 3-dose series) 1998 Breast cancer screen 2019 Lipids 2019 Annual Wellness Visit (Medicare) 05/15/2024 Colonoscopy 2024 Colorectal Cancer Screen 2024 FIT/FOBT: Average risk 2024 Fecal-DNA (Cologuard): Bryant ge risk 2024 Sigmoidoscopy/CT colonography 2024 Flu vaccine (#1) 04/17/2025 09/22/2020, 08/06/2019, 09/26/2012 COVID-19 Vaccine (2023-2 5 season) 2025 HPV vaccine (No Doses Required) Completed Hepatitis A vaccine Aged Out No longe r eligible based on patient's age to complete this topic Hib vaccine Aged Out No longer eligi ble based on patient's age to complete this topic Meningococcal (ACWY) vaccine Aged Out No longer eligible based on patient's age to complete this topic Meningococcal B vaccine Aged Out No l onger eligible based on patient's age to complete this topic Pneumococcal 0-49 years Vaccine Aged Out No longer eligible b ased on patient's age to complete this topic Polio vaccine Aged Out No longer elig ible based on patient's age to complete this topic Insurance [place] Advance Directives * Full Code (Latest Code Status on File) Date Activated Date Inactivated Comments 05/16/2024 1:24 AM 05/17/2024 5:41 PM Care Teams Cardiology Coordinator Relationship Specialty Start Date End Date Martin An MD PCP - General Internal Medicine 05/15/24
--- OUTSIDE RECORDS SUMMARY | 2025-05-22 18:02 | XMS_ITS | Encounter Summary ---
[facility] tem Address [id number] [address] [place] [address] Care Team Providers Care Multifocal Lens Assembler Name Role Phone Martin An MD Primary Care Provider [phone] Encounter Details Date Type Department Care Team ([facility] Contact Info) Description 07/25/[address] [facility] - ENT [address] [place] [address], [address] [place] [address] Nataly Robert, PA-C [address] [facility] [address] [place] [address] Social History Tobacco Use Types Packs/Day Years [...] have Coronavirus / COVID-19? No / Unsure 07/26/2022 7:24 AM EST documented as of this encounter Plan of Treatment Upcoming Encounters Date Type Department Care Team (Late Contact Info) Description 11/30/2025 1:30 PM EDT [facility] [address] [facility] [place] [address] Martin An MD [address] [place] [address], [address] [place], [place] [id number] documented as of this encounter Visit Diagnoses Not on filedocumented in this encounter Care Teams Multifocal Lens Assembler Relationship Specialty Start Date End Date Martin An MD [address] [place] [address], [address] [place], [place] [id number] PCP - General Pediatrics 08/20/23 documented as of this encounter
--- OUTSIDE RECORDS SUMMARY | 2025-05-22 18:02 | XMS_ITS | Clinical Summary ---
Author Organization [facility] Healthcare Address [address] [facility] [place] [address] Care Team Providers Care Car Runner Name Role Phone Martin An MD Primary Care Provider [phone] Allergies Active Allergy Reactions Criticality Noted Date Comments Cefaclor GI intolerance,Other 1979 Other Reaction(s): other, Other: See Comments, Severe Constipation constipation constipation Other reaction(s): GI Upset, Other (See Comments), Other: See Comments constipation constipation Other reaction(s): Not available Ceclor Diazepam Low 11/29/2022 Other Reaction(s): Unknown, Unknown Other Reaction(s): Unknown Hydrocortisone Rash Low 07/20/2022 Yellow Dyes (Non-Tartrazine) Rash Low 02/07/2022 Other Reaction(s): Other: See Comments Medications escitalopram (Lexapro) 20 MG tablet Take 20 mg by mouth Daily Active OXcarbazepine (Trileptal) 150 MG tablet Take 150 mg by mouth Active traZODone (Desyrel) 50 MG tablet Take by mouth at bedtime Active levothyroxine (Synthroid, Levoxyl) 75 MCG tablet Take 75 mcg by mouth in the morning. Take before meals. Active flunisolide (Nasalide) 25 MCG/ACT (0.025%) solution Administer 2 sprays into each nostril every 12 (twelve) hours Active Multiple Vitamin (multivitamin) tablet Take 1 tablet by mouth Daily Active biotin 5000 MCG capsule Take by mouth Active cyanocobalamin (Vitamin B-12) 1000 MCG tablet Take 1,000 mcg by mouth Daily Active cholecalciferol (Vitamin D-3) 25 MCG (1000 UT) capsule Take 1,000 Units by mouth Daily Active niacin 250 MG tablet Take 250 mg by mouth in the morning. Take with meals. Active Ascorbic Acid (vitamin C) 250 MG tablet Take 500 mg by mouth Daily Active ciprofloxacin-d exAMETHasone (CiproDEX) otic suspension 4 drops Daily as needed Active cetirizine (ZyrTEC) 10 MG tablet Active Active Problems Problem Noted Date Diagnosed Date Instability of right ankle joint 04/27/2025 S/P foot surgery 04/27/2025 Difficulty walking 04/27/2025 Weakness 04/27/2025 Encounters Date Type Department Care Team Description 05/22/2025 12:30 PM EDT Treatment [facility] [id number] [place] [address] Rick Montano, PT Instability of right ankle joint (Primary Dx); S/P foot surgery; Difficulty walking; Weakness 05/22/2025 Bamboo flowsheet [facility] [place] [address] [place] [address] Rick Montano, PT 05/22/2025 Travel 05/15/2025 1:30 PM EDT Treatment [facility] [address] [place] [address] Rick Montano, PT Instability of right ankle joint (Primary Dx); S/P foot surgery; Difficulty walking; Weakness 05/15/2025 Bamboo flowsheet [facility] [address] [place] [address] Rick Montano, PT 05/15/2025 Travel 05/12/2025 1:30 PM EDT Treatment [facility] [address] [place] [address] Rick Montano, PT Instability of right ankle joint (Primary Dx); S/P foot surgery; Difficulty walking; Weakness 05/12/2025 Bamboo flowsheet [facility] [address] [place] [address] Rick Montano, PT 05/12/2025 Travel 05/07/2025 12:00 PM EDT Treatment [facility] [address] [place] [address] Candace Johnson, COKE DRAWER HAND Instability of right ankle joint (Primary Dx); S/P foot surgery; Difficulty walking; Weakness 05/07/2025 Bamboo flowsheet [facility] [address] [place] [address] Candace Johnson, COKE DRAWER HAND 05/07/2025 Travel 05/06/2025 Travel 05/05/2025 3:00 PM EDT Treatment [facility] [address] [place] [address] Jacquelyn Comlenares, COKE DRAWER HAND Instability of right ankle joint (Primary Dx) 05/05/2025 Bamboo flowsheet [facility] [address] [place] [address] Jacquelyn Colmenares, COKE DRAWER HAND 05/05/2025 Travel 04/30/2025 4:00 PM EDT Treatment [facility] [address] [facility] [place] [address] Rick Montano, PT Instability of right ankle joint (Primary Dx); S/P foot surgery; Difficulty walking; Weakness 04/30/2025 Bamboo flowsheet [facility] [address] [place] [address] Rick Montano, PT 04/30/2025 Travel 04/29/2025 Travel 04/27/2025 2:00 PM EDT Evaluation [facility] [address] [facility] [place] [address] Rick Montano, PT Instability of right ankle joint; S/P foot surgery; Difficulty walking; Weakness 04/27/2025 Plan of Care Documentation [facility] [address] [place] [address] 04/27/2025 Bamboo flowsheet [facility] [address] [place] [address] Rick Montano, PT 04/27/2025 Travel 04/21/2025 Travel 04/17/2025 11:15 AM EDT Office Visit [facility] [address] [place] [address] Anish Ng, AUGUSTINE S/P foot surgery (Primary Dx); Instability of right ankle joint; Difficulty walking; Weakness 04/17/2025 Bamboo flowsheet [facility] [address] [facility] [place] [address] Anish Ng DPM 04/17/2025 Travel 04/16/2025 Travel 04/01/2025 11:00 AM EDT Office Visit [facility] [address] [facility] [place] [address] Anish Ng, AUGUSTINE S/P foot surgery (Primary Dx); Right foot pain 04/01/2025 Bamboo flowsheet [facility] [address] [facility] [place] [address] Anish Ng DPM 04/01/2025 Travel 03/31/2025 Travel 03/18/2025 10:45 AM EDT Office Visit [facility] [address] [place] [address] Anish Ng, AUGUSTINE S/P foot surgery (Primary Dx); Right foot pain; Instability of right ankle joint; Difficulty walking 03/18/2025 Bamboo flowsheet [facility] [address] [facility] [place] [address] Anish Ng DPM 03/18/2025 Travel 03/17/2025 Travel from Last 3 Months Immunizations Immunization Administration Dates Next Due Influenza, injectable, quadrivalent 08/06/2019 Influenza, injectable, quadrivalent, preservativ e free 09/22/2020 Influenza, seasonal, injectable 09/26/2012 Family History Medical History Relation Name Comments Heart disease Father Stanislav Stroke Father Stnaislav Cancer Maternal Grandfather Rell Hypertension Maternal Grandfather Rell Stroke Maternal Grandfather Rell Cancer Maternal Grandmother Burns Diabetes Maternal Grandmother Burns Heart disease Maternal Grandmother Shanti Hypertension Mother Queenie Hanson Relation Name Status Comments Father Stanislav Maternal Grandfather Esmeralda Maternal Grandmother Shanti Mother Queenie Hanson Social History Tobacco Use [...] AM EDT Sexual Orientation Not on file Last Filed Vital Signs Vital Sign Reading Time Taken Comments Blood Pressure - - Pulse - - Temperature - - Respiratory Rate - - Oxygen Saturation - - Inhaled Oxygen Concentration - - Weight 61.2 kg (135 lb) 04/17/2025 11:51 AM EDT Height 152.4 cm (5') 04/17/2025 11:51 AM EDT Body Mass Index 26.37 04/17/2025 11:51 AM EDT Plan of Treatment Upcoming Encounters Date Type Department Care Team (Late st Contact Info) Description 05/28/2025 3:30 PM EDT Treatment [facility] [address] [place] [place] [address] Candace Johnson, COKE DRAWER HAND [address] [place] [address] 05/29/2025 1:30 PM EDT Treatment [facility] [address] [place] [address] Candace Johnson, COKE DRAWER HAND [address] [place] [address] 06/01/2025 10:30 AM EDT [facility] [address] [place] [address] Anish Ng, DPM [address] [place] [address] 06/02/2025 11:30 AM EDT Treatment [facility] [address] [place] [address] Jacquelyn Colmenares, COKE DRAWER HAND 06/04/2025 11:30 AM EDT Treatment [facility] [address] [facility] [place] [address] Candace Johnson, COKE DRAWER HAND [address] [facility] [place] [address] Insurance MEDICARE MEDICAID [place] Care Teams Car Runner Relationship Specialty Start Date End Date Martin An MD [address] [place] [address], [address] [place] [address] PCP - General Family Medicine 01/12/25
--- OUTSIDE RECORDS SUMMARY | 2025-05-22 18:02 | XMS_ITS | Encounter Summary ---
Author Organization [facility] Healthcare Address [address] [facility] [place] [address] Care Team Providers Care Dump Truck Operator Name Role Phone Martin An MD Primary Care Provider [phone] Encounter Details Date Type Department Care Team (Latest Contact Info) Description 05/12/2025 Travel Social History Tobacco Use Types Packs/Day [...] Info) Description 05/28/2025 3:30 PM EDT Treatment [facility] [address] [place] [address] Candace Johnson, TERRITORY SALES MANAGER [address] [place] [address] 05/29/2025 1:30 PM EDT Treatment [facility] [address] [place] [address] Candace Johnson, TERRITORY SALES MANAGER [address] [facility] [place] [address] 06/01/2025 10:30 AM EDT [facility] [address] [place] [address] Anish Ng, DPM [address] [place], [place] [phone] 06/02/2025 11:30 AM EDT Treatment [facility] [address] [facility] [place] [address] Darrian Jacquelyn, [facility] 06/04/2025 11:30 AM EDT Treatment [facility] [address] [facility] [place] [address] Candace Johnson, [facility] [address] [place], [place] [phone] documented as of this encounter Visit Diagnoses Not on filedocumented in this encounter Care Teams Dump Truck Operator Relationship Specialty Start Date End Date Martin An MD [address] [place] [address], [address] [place] [address] PCP - General Family Medicine 01/12/25 documented as of this encounter
--- OUTSIDE RECORDS SUMMARY | 2025-05-22 18:02 | XMS_ITS | Encounter Summary ---
Author Organization [facility] Address [address] [place] [address] Care Team Providers Care Construction Job Titles Name Role Phone Martin An MD Unavailable [phone] Martin An MD Primary Care Provider + Analia Colvin RN Unavailable Unavaila Rio Reardon DO Unavailable [phone] Source Comments In the event this information is protected by the Federal Confidentiality of Alcohol and Drug AbusePatient Records regulations: The Federal rules restrict any use of the information to criminally investigate or prosecute any alcohol or drug abuse patient.[facility] Encounter Details Date Type Department Care Team (Late st Contact Info) Description 02/27/2023 [place] [address] Provider, [facility] Actionable Imaging Result Notification Patient Outreach Social History Tobacco Use Types Packs/Day Years Used Date Smoking Tobacco: Never Smokeless Tobacco: Never Alcohol Use Standard Drinks/Week Comments Never 0 (1 standard drink = 0.6 oz pur e alcohol) PHQ-2 Answer Date Recorded PHQ-2 score 0 02/01/2023 Area Deprivation Index Answer Date Wayne rded National Score (1-100), lower number is lower ri sk 71 01/18/2023 State Score (1-10), lower number is lower risk 5 01/18/2023 Data from: https://www.neighborhoodatlas.[facility].edu/. Last address used for calculation [address] 01/18/2023 Comments No Sex and Gender Information Value Date Recorded Sex Assigned at Female 10/24/2023 11:57 AM EST Legal Sex Female 10:17 AM EDT Gender Identity Female 10/24/2023 11:57 AM EST Sexual Orientation Straight 10/24/2023 11 :57 AM EST documented as of this encounter Plan of Treatment Not on file documented as of this encounter Visit Diagnoses Not on filedocumented in this encounter Care Teams Construction Job Titles Relationship Specialty Start Date End Date Martin An MD [address] [place] [address], [address] [place], [place] [phone] PCP - General Internal Medicine 08/01/22 Martin An MD [address] [place] [address], [address] [place] [address] Internal Medicine 08/01/22 Analia Colvin, KALINA [address] [place] [address] 07/10/24 Rio Hill DO [address] [place] [address] Primary Staff Physician Cardiology 08/01/24 documented as of this encounter
--- OUTSIDE RECORDS SUMMARY | 2025-05-22 18:02 | XMS_ITS | Clinical Summary ---
Author Organization [facility] Address [address] [place] [address] Phone Care Team Providers Care French Instructor Name Role Phone Generic Provider, No Assigned Pcp MD Primary Car e Provider Unavailable Allergies Active Allergy Reactions Criticality Noted Date Comments Cefaclor GI Upset,Other 1979 constipation Cortisone Unknown 02/28/2023 Diazepam Unknown Low 10/01/2023 Other Reaction(s): Unknown Fentanyl Seizure High 07/07/2024 Had a seizure after receiving fentanyl for an MRI Fludrocortisone Rash Low 02/07/2022 Hydrocortisone Rash Low 07/20/2022 Yellow Dye Rash Low 02/07/2022 Medications ascorbic acid (Vitamin C) 500 mg tablet Take 1 tablet (500 mg) by mouth once daily. Active cholecalciferol (Vitamin D-3) 50 mcg (2,000 unit) capsule Take by mouth once daily. Active cyanocobalamin (Vitamin B-12) 1,000 mcg tablet Take 1 tablet (1,000 mcg) by mouth once daily. Active escitalopram (Lexapro) 20 mg tablet Take 1 tablet (20 mg) by mouth once daily. 2 Active flunisolide (Nasalide) 25 mcg (0.025 %) spray,non-aeroso l Administer 2 sprays into affected nostril(s) 2 times a day as needed. Active multivitamin with minerals tablet Take 1 tablet by mouth once daily. Active niacin 250 mg tablet Take 1 tablet (250 mg) by mouth. Active OXcarbazepine (Trileptal) 150 mg tablet Take 1 tablet (150 mg) by mouth once daily at bedtime. Patient takes at 9:30pm 2 Active traZODone (Desyrel) 50 mg tablet Take 12.5 mg by mouth once daily at bedtime. Patient 1/4 tablet at bedtime 9:30pm 2 Active levothyroxine (Synthroid, Levoxyl) 88 mcg tablet Take 1 tablet (88 mcg) by mouth early in the morning.. Take on an empty stomach at the same time each day, either 30 to 60 minutes prior to breakfast Active polyethylene glycol (Glycolax, Miralax) 17 gram packetIndication s:Patellar instability of right knee Take 17 g by mouth once daily. 4 Active traMADol (Ultram) 50 mg tabletIndication s:Patellar instability of right knee Take 1 tablet (50 mg) by mouth every 6 hours if needed for severe pain (7 - 10). 15 tablet 4 Active Active Problems Problem Noted Date Diagnosed Date Patellofemoral instability 07/17/2024 Patellar instability of right knee 06/27/2024 Chronic mastoiditis 06/06/2024 Chronic serous otitis media 06/06/2024 Mixed conductive and sensorineural hearing loss, bilateral 06/06/2024 Otorrhea 06/06/2024 Tinnitus 06/06/2024 Pain in right knee 03/24/2024 Myringotomy tube(s) status 02/04/2024 Otorrhea, left ear 02/04/2024 Right-sided chest wall pain 01/08/2024 Abnormal computed tomography scan 01/07/2024 Pleural effusion 12/27/2023 Abdominal pain 12/26/2023 Acute blood loss anemia 11/23/2023 Overview (04/10/2024): Last Assessment & Plan: Assessment: Postop anemia PLAN: -Trend -Transfuse for Hgb less than 7.0 or symptomatic anemia - Outpatient CBC 1 week after discharge Fusion of spine, thoracolumbar region 11/23/2023 Overview (04/10/2024): Last Assessment & Plan: S/p T10-L3 revision fusion, instrumentation removal, T11-L2 PCOs -PT/OT eval. -Out of bed to chair for meals. -Ambulate pt 3-4 x daily as able. -Weight bearing scoli XR reviewed -dc drain and prevena 11/26 -Monitor: signs, symptoms, disease progression, disease regression. -Evaluate: test results, medication effectiveness, response to treatment. -Pain control: analgesics titrated per consultation with Tavo Johnson MD -Plan discussed with Tavo Johnson MD -DC planning. Planned Date of Discharge: Approximately 1-2 days Discharge Disposition: [facility] Postoperative pain 11/23/2023 Overview (04/10/2024): Last Assessment & Plan: -PT/OT eval. -Out of bed to chair for meals. -Ambulate pt 3-4 x daily as able. -Pain control: analgesics titrated per consultation with Tavo Johnson MD Thrombocytopenia 11/23/2023 Overview (04/10/2024): Last Assessment & Plan: Trend plt. Consider transfusion <50 k Kyphosis deformity of spine 11/22/2023 Overview (04/10/2024): Last Assessment & Plan: S/P T10-L3 revision fusion, instrumentation removal, T11-L2 PCOs Generalized anxiety disorder 11/19/2023 Scoliosis 10/30/2023 Overview (04/10/2024): Last Assessment & Plan: Plan for surgery Dysfunction of eustachian tube 10/10/2023 Dysuria 09/27/2023 Renal cyst 09/26/2023 Neutropenia 09/18/2023 Trochanteric bursitis of left hip 02/13/2023 Juvenile idiopathic scoliosis of thoracolumbar r egion 12/04/2022 Bipolar disorder 10/10/2022 Overview (04/10/2024): Last Assessment & Plan: Continue lexapro 20 mg daily , oxcarbazepine 150 mg HS, and trazadone 12.5 mg HS Monitor for exacerbation Acquired hypothyroidism 09/21/2022 Overview (04/10/2024): Last Assessment & Plan: Continue levothyroxine 75 mcg daily Monitor for exacerbation Down syndrome 09/21/2022 Overview (04/10/2024): Last Assessment & Plan: Continue outpatient follow up with PCP Hypotension 09/21/2022 Overview (04/10/2024): Last Assessment & Plan: Followed by cardiology Dr. Rio Hill, 07/10/23 noted She is prone to low BP and does not drink much water. . Hope has had surgery in the past without issues with anesthesia (her mom indicates it seems to work opposite in her) we discussed that children with downs with autonomic dysfunction have to be expecially careful with anesthesia as their cardiac output is very HR dependent. This is less a concern as an adult as we are not as HR dependent but would still be careful with anesthesia with regards to bradycardia and hypotension; BP this visit 98/42, mom states she has not drank a lot of fluids today. Mitral valve regurgitation 09/21/2022 Overview (04/10/2024): Last Assessment & Plan: 09/25/22 ECHO showed EF 65% There are no significant valvular abnormalities. 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 09/23/2019 Allergic rhinitis 09/23/2019 Leukopenia 01/22/2007 Overview (04/10/2024): Last Assessment & Plan: Trend CBC Resolved Problems Problem Noted Date Diagnosed Date Resolved Date Impacted cerumen 06/06/2024 06/06/2024 Sprain of carpal (joint) of wrist, right, initial encounter 09/24/2023 06/06/2024 Radial styloid tenosynovitis 09/24/2023 06/06/2024 Immunizations Immunization Administration Dates Next Due Flu vaccine (IIV4), preservative free *Check age /dose* 09/22/2020 Influenza, Unspecified 09/22/2020 Influenza, injectable, quadrivalent 08/06/2019 Influenza, seasonal, injectable 09/26/2012 Social History Tobacco Use Types Packs/Day Years Used Date Smoking Tobacco: Never Smokeless Tobacco: Never Tobacco Cessation:Counseling Given: No Alcohol Use Standard Drinks/Week Comments Never 0 (1 standard drink = 0.6 oz pur e alcohol) [facility] Utilities Answer Date Recorded In the past 12 months has e [employer], [employer], oil, or water [employer] threatened to shut off services in your home? Patient unable to answer 07/18/2024 Humiliation, Afraid, Rape, a nd Kick questionnaire Answer Date Recorded Within the last year, have y ou been afraid of your partner or ex-partner? Patient unable to answer 07/18/2024 Within the last year, have y ou been humiliated or emotionally abused in other ways by your partner or ex-partner? Patient unable to answer 07/18/2024 Within the last year, have y ou been kicked, hit, slapped, or otherwise physically hurt by your partner or ex-partner? Patient unable to answer 07/18/2024 Within the last year, have y ou been raped or forced to have any kind of sexual activity by your partner or ex-partner? Patient unable to answer 07/18/2024 AUDIT-C Answer Date Recorded Q1: How often do you have a drink containing alcohol? Never 07/18/2024 Q2: How many drinks containi ng alcohol do you have on a typical day when you are drinking? Patient does not drink Q3: How often do you have si x or more drinks on one occasion? Never 07/18/2024 Overall Financial Resource Strain (CARDIA) Answe r Date Recorded How hard is it for you to pa y for the very basics like food, housing, medical care, and heating? Patient unable to answer 07/18/2024 PHQ-2 Answer Date Recorded Patient Health Questionnaire-2 Score 0 07/18/2024 Hunger Vital Sign Answer Date Recorded Within the past 12 months, y ou worried that your food would run out before you got the money to buy more. Never true 07/18/20 24 Within the past 12 months, t he food you bought just didn't last and you didn't have money to get more. Never true 07/18/2024 PRAPARE - Transportation Answer Date Re corded In the past 12 months, has l ack of transportation kept you from medical appointments or from getting medications? Patient unable to answer 07/18/2024 In the past 12 months, has l ack of transportation kept you from meetings, work, or from getting things needed for daily living? Patient unable to answer 07/18/2024 Housing Stability Vital Sign Answer Elian e Recorded In the last 12 months, was t here a time when you were not able to pay the mortgage or rent on time? Patient unable to answer 07/18/2024 In the past 12 months, how m any times have you moved where you were living? 1 07/18/2024 At any time in the past 12 m ont, were you homeless or living in a nursing home (including now)? Patient unable to answer 07/18/2024 Comments No Sex and Gender Information Value Date Recorded Sex Assigned at Not on file Legal Sex Female 11:21 AM EDT Gender Identity Not on file Sexual Orientation Not on file Last Filed Vital Signs Vital Sign Reading Time Taken Comments Blood Pressure 122/55 07/21/2024 12:05 PM EST Pulse 87 07/21/2024 12:05 PM EST Temperature 36 C (96.8 F) 07/21/2024 12:05 PM EST Respiratory Rate 16 07/21/2024 12:05 PM EST Oxygen Saturation 95% 07/21/2024 12:05 PM EST Inhaled Oxygen Concentration - - Weight 61.7 kg (136 lb) 07/17/2024 11:10 AM EDT Height 152.4 cm (5') 07/17/2024 11:10 AM EDT Body Mass Index 26.56 07/17/2024 11:10 AM EDT Plan of Treatment Health Maintenance Due Date Last Done Comments CT Colonography 1979 Colonoscopy 1979 Colorectal Cancer Screening 1979 FIT-DNA (Cologuard) 1979 FIT 1979 HIV Screening 1979 Lipid Panel 1979 Medicare Annual Wellness Visit (AWV) 1979 Sigmoidoscopy 1979 MMR Vaccines (1 of 1 - Standard series) 1980 Sleep Study 1982 Hepatitis C Screening 1997 Hepatitis B Vaccines (1 of 3 - 19+ 3-dose series) 1998 Pneumococcal Vaccine: Pediatrics and At-Risk Adult Patients (1 of 2 - PCV) 1998 DTaP/Tdap/Td Vaccines (1 - Tdap) 2001 HPV Vaccines (1 - 3-dose standard series) 2006 Mammogram 2019 TSH Level 05/17/2025 05/17/2024 COVID-19 Vaccine (1 - season) 2025 Influenza Vaccine (#1) 2025 , 09/22/2020, 08/06/2019, Additional history exists CBC Level 07/18/2025 07/18/2024 Diabetes Screening 07/18/2027 07/18/2024, 07/15/2024 Zoster Vaccines (1 of 2) 2029 Echocardiogram Completed 05/16/2024, 05/16/2024 HIB Vaccines Aged Out No longer eligi ble based on patient's age to complete this topic Hepatitis A Vaccines Aged Out No long er eligible based on patient's age to complete this topic IPV Vaccines Aged Out No longer eligi ble based on patient's age to complete this topic Meningococcal Vaccine Aged Out No chalino malorie eligible based on patient's age to complete this topic Rotavirus Vaccines Aged Out No longer eligible based on patient's age to complete this topic Medical Devices Implanted Type Area Lead Massage Therapist Device Identifier Shelf Expiration Date Model / Serial / Lot Double Loaded Knee Fibertak [place], Self-Punching 2.6mm Implanted:Qty: 2 on 07/17/2024 by Martin Albright MD MPH at [facility] [place] Right: Knee [employer] [id number] 01/14/2029 [id number] P / NA / [id number] Tendon, Semitendinosus <26cm Length - [id number] - [id number] Implanted:Qty: 1 on 07/17/2024 by Martin Albright MD MPH at [facility] [place] Right: Knee [employer]OSKELETAL TRNSPLNT FNDN 08/14/2028 [id number] / [id number] / Oleg Oleg N/A: Spine Lumbar Screw, Biocomposite, Fast Thread, 7 X 20mm - [id number] Implanted:Qty: 1 on 07/17/2024 by Martin Albright MD MPH at [facility] Screw Right: Knee [employer] [id number] 01/15/2028 AR-[id number] -07 / / [id number] Procedures Procedure Name Priority Date/Time Associated Diagnosis Comments CBC Routine 07/18/2024 5:46 AM EDT BASIC METABOLIC PANEL Routine 07/18/2024 5:46 AM EDT from Last 3 Months or Most Recently Relevant to Health Maintenance Results * (ABNORMAL) CBC (07/18/2024 5:46 AM EDT) WBC 5.8 4.4 - 11.3 x10*3/uL LAB HEMATOLOGY METHOD 07/18/2024 6:21 AM EDT [facility] nRBC 0.0 0.0 - 0.0 /100 WBCs LAB HEMATOLOGY METHOD 07/18/2024 6:21 AM EDT [facility] RBC 3.36(L) 4.00 - 5.20 x10*6/uL LAB HEMATOLOGY METHOD 07/18/2024 6:21 AM EDT [facility] Hemoglobin 11.1(L) 12.0 - 16.0 g/dL LAB HEMATOLOGY METHOD 07/18/2024 6:21 AM EDT [facility] Hematocrit 34.4(L) 36.0 - 46.0 % LAB HEMATOLOGY METHOD 07/18/2024 6:21 AM EDT [facility] MCV 102(H) 80 - 100 fL LAB HEMATOLOGY METHOD 07/18/2024 6:21 AM EDT [facility] MCH 33.0 26.0 - 34.0 pg LAB HEMATOLOGY METHOD 07/18/2024 6:21 AM EDT [facility] MCHC 32.3 32.0 - 36.0 g/dL LAB HEMATOLOGY METHOD 07/18/2024 6:21 AM EDT [facility] RDW 14.0 11.5 - 14.5 % LAB HEMATOLOGY METHOD 07/18/2024 6:21 AM EDT [facility] Platelets 162 150 - 450 x10*3/uL LAB HEMATOLOGY METHOD 07/18/2024 6:21 AM EDT [facility] Blood Venous blood specimen / Unknown Venipuncture / Unknown 07/18/2024 5:46 AM EDT 07/18/2024 6:16 AM EDT Lisa Meredith PA-C LAB BLOOD ORDERABLES Final Result [facility] [address] [place] [address] * (ABNORMAL) Basic metabolic panel (07/18/2024 5:46 AM EDT) Glucose 111(H) 74 - 99 mg/dL LAB CHEMISTRY METHOD 07/18/2024 6:45 AM EDT [facility] Sodium 137 136 - 145 mmol/L LAB CHEMISTRY METHOD 07/18/2024 6:45 AM EDT [facility] Potassium 4.0 3.5 - 5.3 mmol/L LAB CHEMISTRY METHOD 07/18/2024 6:45 AM EDT [facility] Chloride 99 98 - 107 mmol/L LAB CHEMISTRY METHOD 07/18/2024 6:45 AM EDT [facility] Bicarbonate 31 21 - 32 mmol/L LAB CHEMISTRY METHOD 07/18/2024 6:45 AM EDT [facility] Anion Gap 11 10 - 20 mmol/L LAB CHEMISTRY METHOD 07/18/2024 6:45 AM EDT [facility] Urea Nitrogen 11 6 - 23 mg/dL LAB CHEMISTRY METHOD 07/18/2024 6:45 AM EDT [facility] Creatinine 0.84 0.50 - 1.05 mg/dL LAB CHEMISTRY METHOD 07/18/2024 6:45 AM EDT [facility] eGFR 87 >60 mL/min/1. 73m*2 LAB CHEMISTRY METHOD 07/18/2024 6:45 AM EDT [facility] Comment: Calculations of estimated GFR are performed using the 2020 CKD-EPI Study Refit equation without the race variable for the IDMS-Traceable creatinine methods. https://jasn.asnjournals.org/content/early//ASN.3859877660 Calcium 8.7 8.6 - 10.3 mg/dL LAB CHEMISTRY METHOD 07/18/2024 6:45 AM EDT [facility] Blood Venous blood specimen / Unknown Venipuncture / Unknown 07/18/2024 5:46 AM EDT 07/18/2024 6:17 AM EDT us Lisa Meredith PA-C LAB BLOOD ORDERABLES Final Result [facility] [address] [place] [address] from Last 3 Months or Most Recently Relevant to Health Maintenance Insurance MEDICARE PART A AND B MEDICAID [employer] HE[employer] PLANS MEDICARE PART A AND B MEDICAID [email or web address] [address] Advance Directives For more information, please contact: [phone] (Available ) * Full Code (Latest Code Status on File) Date Activated Date Inactivated Comments 07/17/2024 4:24 PM Question Answer Comments Plan of Care: Code Status Discussion Not Compl eted Decision Maker: Provider Rationale: Patient condition does not warra nt discussion Care Teams French Instructor Relationship Specialty Start Date End Date Generic Provider, No Assigned Pcp, [place] [address] PCP - General Final Assembly And Packing Supervisor 06/14/24
--- OUTSIDE RECORDS SUMMARY | 2025-05-22 18:02 | XMS_ITS | Encounter Summary ---
Author Organization [facility] Address [address] [place] [address] Phone Care Team Providers Care Movable Bulkhead Installer Name Role Phone Generic Provider, No Assigned Pcp Primary Car e Provider Unavailable Encounter Details Date Type Department Care Team (Late st Contact Info) Description 05/02/2024 Scanned Document [facility] [address] [facility] [address] [place] [id number] Scanning, Generic Provider Social History Tobacco Use Types Packs/Day Years Used Date Smoking Tobacco: Never Assessed Comments Unknown Sex and Gender Information Value Date Recorded Sex Assigned at Not on file Legal Sex Female 11:21 AM EDT Gender Identity Not on file Sexual Orientation Not on file COVID-19 Exposure Response Date Recorded In the last 10 days, have yo u been in contact with someone who was confirmed or suspected to have Coronavirus/COVID-19? No / Unsure 04/15/2024 10:59 AM EDT documented as of this encounter Plan of Treatment Not on file documented as of this encounter Visit Diagnoses Not on filedocumented in this encounter Care Teams Movable Bulkhead Installer Relationship Specialty Start Date End Date Generic Provider, No [place]igned [place] [address] PCP - General Social Media Marketing Specialist 06/14/24 documented as of this encounter
--- OUTSIDE RECORDS SUMMARY | 2025-05-22 18:02 | XMS_ITS | Encounter Summary ---
Author Organization [facility] Address [address] [place] [address] Care Team Providers Care Import Coordinator Name Role Phone Martin An MD Unavailable Martin An MD Primary Care Provider + Analia Colvin RN Unavailable Unavaila Rio Reardon DO Unavailable [phone] Source Comments In the event this information is protected by the Federal Confidentiality of Alcohol and Drug AbusePatient Records regulations: The Federal rules restrict any use of the information to criminally investigate or prosecute any alcohol or drug abuse patient.[facility] Encounter Details Date Type Department Care Team (Late st Contact Info) Description 10/12/2022 Patient Msg [facility] [address] [place] [address] Provider, [facility] Compounded prescription at [facility] Social History Tobacco Use Types Packs/Day Years Used Date Smoking Tobacco: Never Smokeless Tobacco: Never Alcohol Use Standard Drinks/Week Comments Never 0 (1 standard drink = 0.6 oz pur e alcohol) PHQ-2 Answer Date Recorded PHQ-2 score 2 07/20/2022 Area Deprivation Index Answer Date Wayne rded National Score (1-100), lower number is lower ri sk 62 10/04/2022 State Score (1-10), lower number is lower risk N ot on file 10/04/2022 Data from: https://www.neighborhoodatlas.medicine.[facility]/. 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 1) Left flank pain. Unlikely Bosniak IIF cyst is causing the pain. Does have some pelvic phleboliths and left distal ureter was reportedly not visualized well on last CT. CT urogram: No renal calculus or hydronephrosis. Indeterminate 1.3 cm left renal lesion, as described. A follow-up MRI can be considered for further characterization. documented in this encounter Plan of Treatment Not on file documented as of this encounter Visit Diagnoses Not on filedocumented in this encounter Care Teams Import Coordinator Relationship Specialty Start Date End Date Martin An MD [address] [place] [address], [address] [place], [place] [id number] PCP - General Internal Medicine 08/01/22 Martin An MD [address] [place] [address], [address] [place], [place] [id number] Internal Medicine 08/01/22 Analia Colvin, RN [address] [place] [address] 07/10/24 Rio Hill DO [address] [place] [address] Primary Staff Physician Cardiology 08/01/24 documented as of this encounter
--- OUTSIDE RECORDS SUMMARY | 2025-05-22 18:02 | XMS_ITS | Patient Health Record ---
Author Organization [facility] Address [address] [place] [address] Support Name Relationship Address Phone RAYMOND VALENTE Emergency Contact [address] [place] [address] KERWIN MARADIAGA Guarantor Unknown [phone] Allergies Allergen (clinical drug ingredient) Drug/Non Drug Allergy documented on EMR Reaction Allergy Type Onset Date Status ceclor Unknown Drug Allergy Active Reason For Referral No Information Medications Medication SIG (Take, Route, Frequency, Duration) Notes Start Date End Date Status PROzac 20 MG 1 capsule in the mor matt Orally Once a day Active Levothyroxine Sodium 50 MCG 1 tablet Ora lly Once a day Active Social History Tobacco Use: Social History Observation Description Date Details (start date - stop date) Never Smoker NA - NA Tobacco Use: Question Answer Notes Are you a: Never Smoker Problems Problem Type SNOMED Code ICD Code Onset Dates Problem Status W/U Status Risk Notes Problem Abdominal pain (76769682) Abdominal pain (R10.9) Active confirmed Problem Ultrasonography of abdomen abnormal ([id number]) Abnormal ultrasound of abdomen (R93.5) Active confirmed Plan Of Treatment No Information Insurance Providers Payer Name Payer Address Payer Phone Subscriber Number Group Number Insured Name Patient Relationship to Insured Coverage Start Date Coverage End Date [employer] [address] [place] [id number] KERWIN MARADIAGA Self - patient is the insured [employer] [address] [place] [id number] KERWIN MARADIAGA Self - patient is the insured Medical (General) History Medical History History ICD Code Anxiety disorder Atrial fibrillation Neck pain environmental allergies heart murmur thyroid disease Arthritis depression palpitations Surgical History Surgery Date(Month/Year) appendectomy tonsillectomy spine surgery ear tubes hysterectomy Hospitalization History Reason Date(Month/Year) chest pain None in the past six months
--- OUTSIDE RECORDS SUMMARY | 2025-05-22 18:02 | XMS_ITS | Encounter Summary ---
Author Organization [facility] Healthcare Address [address] [facility] [place] [address] Care Team Providers Care Plasterer Foreman Name Role Phone Martin An MD Primary Care Provider [phone] Encounter Details Date Type Department Care Team (Latest Contact Info) Description 05/15/2025 Travel Social History Tobacco Use Types Packs/Day [...] Info) Description 05/28/2025 3:30 PM EDT Treatment [facility] [address] [place] [phone] Candace Johnson, [employer]ER [employer] SUPERINTENDENT [address] [place] [address] 05/29/2025 1:30 PM EDT Treatment [facility] [address] [place] [phone] Candace Johnson, METER SHOP SUPERINTENDENT [address] [facility] [place] [address] 06/01/2025 10:30 AM EDT [facility] [address] [place] [phone] Anish Ng, DPM [address] [place], [place] [phone] 06/02/2025 11:30 AM EDT Treatment [facility] [address] [facility] [place] [address] Darrian Jacquelyn, [facility] 06/04/2025 11:30 AM EDT Treatment [facility] [address] [facility] [place] [address] Candace Johnson, [facility] [address] [place], [place] [phone] documented as of this encounter Visit Diagnoses Not on filedocumented in this encounter Care Teams Plasterer Foreman Relationship Specialty Start Date End Date Martin An MD [address] [place] [address], [address] [place] [address] PCP - General Family Medicine 01/12/25 documented as of this encounter
--- OUTSIDE RECORDS SUMMARY | 2025-05-22 18:02 | XMS_ITS | Encounter Summary ---
Author Organization [facility] Address [address] [place] [address] Care Team Providers Care Health Information Specialist Name Role Phone Martin An MD Unavailable [phone] Martin An MD Primary Care Provider + Analia Colvin RN Unavailable Unavaila Rio Reardon DO Unavailable Source Comments In the event this information is protected by the Federal Confidentiality of Alcohol and Drug AbusePatient Records regulations: The Federal rules restrict any use of the information to criminally investigate or prosecute any alcohol or drug abuse patient.[facility] Encounter Details Date Type Department Care Team (Late st Contact Info) Description 07/24/2022 Patient Msg Cardiology [address] [phone] Provider, Ccf 09/[address] Hill / Cardiology Social History Tobacco Use Types Packs/Day Years Used Date Smoking Tobacco: Never Smokeless Tobacco: Never Alcohol Use Standard Drinks/Week Comments Never 0 (1 standard drink = 0.6 oz pur e alcohol) PHQ-2 Answer Date Recorded PHQ-2 score 2 07/20/2022 Comments Unknown Sex and Gender Information Value Date Recorded Sex Assigned at Female 10/24/2023 11:57 AM EST Legal Sex Female 10:17 AM EDT Gender Identity Female 10/24/2023 11:57 AM EST Sexual Orientation Straight 10/24/2023 11 :57 AM EST COVID-19 Exposure Response Date Recorded In the last 10 days, have yo u been in contact with someone who was confirmed or suspected to have Coronavirus/COVID-19? No / Unsure 07/20/2022 1:13 PM EDT documented as of this encounter Plan of Treatment Not on file documented as of this encounter Visit Diagnoses Not on filedocumented in this encounter Care Teams Health Information Specialist Relationship Specialty Start Date End Date Martin An MD [facility], [address] [place], [place] [phone] PCP - General Internal Medicine 08/01/22 Martin An MD [facility], [address] [place] [address] Internal Medicine 08/01/22 Analia Colvin, KALINA [address] [place] [address] 07/10/24 Rio Hill DO [address] [place] [address] Primary Staff Physician Cardiology 08/01/24 documented as of this encounter
--- OUTSIDE RECORDS SUMMARY | 2025-05-22 18:02 | XMS_ITS | Encounter Summary ---
Author Organization [facility] Address [address] [place] [address] Care Team Providers Care Lurer Name Role Phone Martin An MD Unavailable [phone] Martin An MD Primary Care Provider + Analia Colvin RN Unavailable Unavaila Rio Reardon DO Unavailable [phone] Source Comments In the event this information is protected by the Federal Confidentiality of Alcohol and Drug AbusePatient Records regulations: The Federal rules restrict any use of the information to criminally investigate or prosecute any alcohol or drug abuse patient.[facility] Encounter Details Date Type Department Care Team (Late st Contact Info) Description 03/02/2023 Get Medical Advice Urology [address] [address] Claudette Laguerre MD [address] [place], [place] [address] [place] [address] scan 02/26/2023 Social History Tobacco Use Types Packs/Day Years [...] is lower risk 5 01/18/2023 Data from: https://www.neighborhoodatlas.medicine.[facility].edu/. Last address used for calculation [address] 01/18/2023 Comments No Sex and Gender Information [...] on filedocumented in this encounter Care Teams Lurer Relationship Specialty Start Date End Date Martin An MD [address] [place] [address], [address] [place] [address] PCP - General Internal Medicine 08/01/22 Martin An MD [address] [place] [address], [address] [place], [place] [phone] Internal Medicine 08/01/22 Analia Colvin, KALINA [address] [place] [address] 07/10/24 Rio Hill DO [address] [place] [address] Primary Staff Physician Cardiology 08/01/24 documented as of this encounter
--- OUTSIDE RECORDS SUMMARY | 2025-05-22 18:02 | XMS_ITS | Encounter Summary ---
Author Organization [facility] Address [address] [place] [address] Care Team Providers Care Technology Consultant Name Role Phone Martin An MD Unavailable [phone] Martin An MD Primary Care Provider + Analia Colvin RN Unavailable Unavaila Rio Reardon DO Unavailable [phone] Source Comments In the event this information is protected by the Federal Confidentiality of Alcohol and Drug AbusePatient Records regulations: The Federal rules restrict any use of the information to criminally investigate or prosecute any alcohol or drug abuse patient.[facility] Encounter Details Date Type Department Care Team (Late st Contact Info) Description 04/18/2025 Get Medical Advice Hematology/Oncology [address] [place] [address] [place] [address] [place] [address] Caitlin Huff 1980 Social History Tobacco Use Types Packs/Day Years Used Date Smoking Tobacco: Never Smokeless Tobacco: Never Alcohol Use Standard Drinks/Week Comments Never 0 (1 standard drink = 0.6 oz pur e alcohol) PHQ-2 Answer Date Recorded PHQ-2 score 1 08/27/2024 Area Deprivation Index Answer Date Wayne rded National Score (1-100), lower number is lower ri sk 71 01/18/2023 State Score (1-10), lower number is lower risk 5 01/18/2023 Data from: https://www.neighborhoodatlas.[facility]/. Last address used for calculation [address] [...] of Assessment Author No 06/14/2024 1:46 PM EDT Javier Mcgee RN * Are you blind or do you have serious difficulty seeing, even when wearing glasses? Answer Date of Assessment Author No 06/14/2024 1:46 PM EDT Javier Mcgee RN * Do you have serious difficulty walking or climbing stairs? Answer Date of Assessment Author No 06/14/2024 1:46 PM Javier Patel RN * Do you have difficulty dressing or bathing? Answer Date of Assessment Author No 06/14/2024 1:46 PM MIRIAMT Javier Mcgee RN * Because of a physical, mental, [...] Entry Date Author Yes 06/14/2024 1:46 PM Dayana Patel RN documented in this encounter Plan of Treatment Not on file documented as of this encounter Goals Goal Patient Goal Type Associated Problems Recent Progress Patient-Stated? Author Blood Pressure < 140/90 Blood Pressure 95/61( 025 2:57 PM EDT) No Rio Hill DO documented as of this encounter Visit Diagnoses Not on filedocumented in this encounter Care Teams Technology Consultant Relationship Specialty Start Date End Date Martin An MD [address] [place] [address], [address] [place] [address] PCP - General Internal Medicine 08/01/22 Martin An MD [address] [place] [address], [address] [place] [address] Internal Medicine 08/01/22 Analia Colvin, RN [address] [place] [address] 07/10/24 Rio Hill DO [address] [place] [address] Primary Staff Physician Cardiology 08/01/24 documented as of this encounter
--- OUTSIDE RECORDS SUMMARY | 2025-05-22 18:02 | XMS_ITS | Encounter Summary ---
Author Organization [facility] Address [id number] [address] [place] [address] Care Team Providers Care Billiard Player Name Role Phone Martin An MD Primary Care Provider [phone] Encounter Details Date Type Department Care Team ([facility] Contact Info) Description 07/26/2022 Orders Only [facility] - ENT [address] [place] [address], [address] [place] [phone] Harman Walsh MD [address] [place] [address] [address] [place] [address] Social History Tobacco Use Types Packs/Day Years [...] Upcoming Encounters Date Type Department Care Team ([facility] Contact Info) Description 11/30/2025 1:30 PM EDT [facility]/Pediatrics [address] [facility] [place] [phone] Martin An MD [address] [place] [address], [address] [place] [address] documented as of this encounter Procedures Procedure Name Priority Date/Time Associated Diagnosis Comments COMPREHENSIVE HEARING TEST Routine 07/26/2022 7:36 AM EST documented in this encounter Results * Comprehensive hearing test (07/26/2022 7:36 AM EST) us Harman Walsh MD AUDIOLOGY SERVICES ORDERABLE S Final Result MANUALLY TRANSCRIBED RESULTS documented in this encounter Visit Diagnoses Not on filedocumented in this encounter Care Teams Billiard Player Relationship Specialty Start Date End Date Martin An MD [address] [place] [address], [address] [place] [address] PCP - General Pediatrics 08/20/23 documented as of this encounter
--- OUTSIDE RECORDS SUMMARY | 2025-05-22 18:02 | XMS_ITS | Encounter Summary ---
Author Organization [facility] Address [address] [place] [address] Care Team Providers Care Donor Technician Name Role Phone Martin An MD Unavailable Martin An MD Primary Care Provider + Analia Colvin RN Unavailable Unavaila Rio Reardon DO Unavailable [phone] Source Comments In the event this information is protected by the Federal Confidentiality of Alcohol and Drug AbusePatient Records regulations: The Federal rules restrict any use of the information to criminally investigate or prosecute any alcohol or drug abuse patient.[facility] Encounter Details Date Type Department Care Team (Late st Contact Info) Description 07/07/2023 [place] [address] Provider, Ccf MRI Screening Questionnaire Completion Required Social History Tobacco Use Types Packs/Day Years Used Date Smoking Tobacco: Never Smokeless Tobacco: Never Alcohol Use Standard Drinks/Week Comments Never 0 (1 standard drink = 0.6 oz pur e alcohol) PHQ-2 Answer Date Recorded PHQ-2 score 3 03/30/2023 Area Deprivation Index Answer Date Wayne rded National Score (1-100), lower number is lower ri sk 71 01/18/2023 State Score (1-10), lower number is lower risk 5 01/18/2023 Data from: https://www.neighborhoodatlas.medicine.[facility].edu/. Last address used for calculation [address] 01/18/2023 Comments No Sex and Gender Information [...] on filedocumented in this encounter Care Teams Donor Technician Relationship Specialty Start Date End Date Martin An MD [address] [place] [address], [address] [place], [place] [phone] PCP - General Internal Medicine 08/01/22 Martin nA MD [address] [place] [address], [address] [place], [place] [phone] Internal Medicine 08/01/22 Analia Colvin, KALINA [address] [place] [address] 07/10/24 Rio Hill DO [address] [place] [address] Primary Staff Physician Cardiology 08/01/24 documented as of this encounter
--- OUTSIDE RECORDS SUMMARY | 2025-05-22 18:02 | XMS_ITS | Encounter Summary ---
Author Organization [facility] Address [address] [place] [address] Care Team Providers Care Cardiology Consultant Name Role Phone Martin An MD Unavailable [phone] Martin An MD Primary Care Provider + Analia Colvin RN Unavailable Unavaila Rio Reardon DO Unavailable [phone] Source Comments In the event this information is protected by the Federal Confidentiality of Alcohol and Drug AbusePatient Records regulations: The Federal rules restrict any use of the information to criminally investigate or prosecute any alcohol or drug abuse patient.[facility] Encounter Details Date Type Department Care Team (Late st Contact Info) Description 11/21/2023 Patient Msg Spine [place] [address] [place] [address] Provider, Ccf ACTION REQUIRED: Skin Preparation before your surgery Social History Tobacco Use Types Packs/Day Years [...] is lower risk 5 01/18/2023 Data from: https://www.neighborhoodatlas.medicine.[facility].edu/. Last address used for calculation [address] [...] on filedocumented in this encounter Care Teams Cardiology Consultant Relationship Specialty Start Date End Date Martin An MD [address] [place] [address], [address] [place], [place] [phone] PCP - General Internal Medicine 08/01/22 Martin An MD [address] [place] [address], [address] [place], [place] [phone] Internal Medicine 08/01/22 Analia Colvin, KALINA [address] [place] [address] 07/10/24 Rio Hill DO [address] [place] [address] Primary Staff Physician Cardiology 08/01/24 documented as of this encounter
--- OUTSIDE RECORDS SUMMARY | 2025-05-22 18:02 | XMS_ITS | Encounter Summary ---
Author Organization [facility] Address [address] [place] [address] Care Team Providers Care Car Trimmer Name Role Phone Martin An MD Unavailable [phone] Martin An MD Primary Care Provider + Analia Colvin RN Unavailable Unavaila Rio Reardon DO Unavailable [phone] Source Comments In the event this information is protected by the Federal Confidentiality of Alcohol and Drug AbusePatient Records regulations: The Federal rules restrict any use of the information to criminally investigate or prosecute any alcohol or drug abuse patient.[facility] Encounter Details Date Type Department Care Team (Late st Contact Info) Description 10/02/2023 Patient Msg Urology [address] [phone] Provider, Ccf Follow Up Urine Culture Social History Tobacco Use Types Packs/Day Years [...] is lower risk 5 01/18/2023 Data from: https://www.neighborhoodatlas.medicine.[facility].edu/. Last address used for calculation [address] 01/18/2023 Comments No Sex and Gender Information [...] on filedocumented in this encounter Care Teams Car Trimmer Relationship Specialty Start Date End Date Martin An MD [address] [place] [address], [address] [place], [place] [phone] PCP - General Internal Medicine 08/01/22 Martin nA MD [address] [place] [address], [address] [place] [address] Internal Medicine 08/01/22 Analia Colvin, KALINA [address] [place] [address] 07/10/24 Rio Hill DO [address] [place] [address] Primary Staff Physician Cardiology 08/01/24 documented as of this encounter
--- OUTSIDE RECORDS SUMMARY | 2025-05-22 18:02 | XMS_ITS | Encounter Summary ---
Author Organization [facility] Address [address] [place] [address] Care Team Providers Care Aids Nurse Name Role Phone Martin An MD Unavailable [phone] Martin An MD Primary Care Provider + Analia Colvin RN Unavailable Unavaila Rio Reardon DO Unavailable [phone] Source Comments In the event this information is protected by the Federal Confidentiality of Alcohol and Drug AbusePatient Records regulations: The Federal rules restrict any use of the information to criminally investigate or prosecute any alcohol or drug abuse patient.[facility] Encounter Details Date Type Department Care Team (Late st Contact Info) Description 06/04/2023 Patient Msg MRI Q [address] [phone] Provider, Ccf Requirements for your upcoming MRI with anesthesia Social History Tobacco Use Types Packs/Day Years [...] is lower risk 5 01/18/2023 Data from: https://www.neighborhoodatlas.medicine.[facility].edu/. Last address used for calculation [address] [...] on filedocumented in this encounter Care Teams Aids Nurse Relationship Specialty Start Date End Date Martin An MD [address] [place] [address], [address] [place], [place] [phone] PCP - General Internal Medicine 08/01/22 Martin An MD [address] [place] [address], [address] [place], [place] [phone] Internal Medicine 08/01/22 Analia Colvin, KALINA [address] [place] [address] 07/10/24 Rio Hill DO [address] [place] [address] Primary Staff Physician Cardiology 08/01/24 documented as of this encounter
--- OUTSIDE RECORDS SUMMARY | 2025-05-22 18:02 | XMS_ITS | Encounter Summary ---
Author Organization [facility] Healthcare Address [address] [facility] [place] [address] Care Team Providers Care Radio Interference Supervisor Name Role Phone Martin An MD Primary Care Provider [phone] Encounter Details Date Type Department Care Team (Late Contact Info) Description 05/12/2025 Bamboo flowsheet [facility] [address] [place] [phone] Rick Montano, PT [address] [place], [place] [phone] Social History Tobacco Use Types Packs/Day Years [...] Department Care Team (Late Contact Info) Description 05/28/2025 3:30 PM EDT Treatment [facility] [address] [place] [phone] Candace Johnson, LIQUOR STORE MANAGER [address] [place] [address] 05/29/2025 1:30 PM EDT Treatment [facility] [address] [place] [phone] Candace Johnson, LIQUOR STORE MANAGER [address] [place] [address] 06/01/2025 10:30 AM EDT Office Visit [facility] Podiatry [address] [place] [phone] Anish Ng, DPM [address] [place] [address] 06/02/2025 11:30 AM EDT Treatment [facility] [address] [place] [address] Jacquelyn Colmenares, LIQUOR STORE MANAGER 06/04/2025 11:30 AM EDT Treatment [facility] [address] [place] [phone] Candace Johnson, [facility] [address] [place], [place] [phone] documented as of this encounter Visit Diagnoses Not on filedocumented in this encounter Care Teams Radio Interference Supervisor Relationship Specialty Start Date End Date Martin An MD [address] [place] [address], [address] [place], [place] [phone] PCP - General Family Medicine 01/12/25 documented as of this encounter
--- OUTSIDE RECORDS SUMMARY | 2025-05-22 18:02 | XMS_ITS | Clinical Summary ---
Author Organization [facility] Address [address] [place] [address] Care Team Providers Care Workforce Analyst Name Role Phone Martin An MD Unavailable [phone] Martin An MD Primary Care Provider + Analia Colvin RN Unavailable Unavaila Rio Reardon DO Unavailable [phone] Allergies Active Allergy Reactions Criticality Noted Date Comments Cefaclor GI Upset,Other: See Comments 1979 constipation Other reaction(s): GI Upset, Other (See Comments), Other: See Comments constipation constipation Other reaction(s): Not available Cortisone Unknown 02/28/2023 Diazepam Unknown Low 11/29/2022 Other Reaction(s): Unknown Fentanyl Other: See Comments High 07/07/2024 Had a seizure after receiving fentanyl for an MRI Pt had seizures Hydrocortisone Rash Low 07/20/2022 Yellow Dye Other: See Comments Low 02/07/2022 Medications ascorbic acid, vitamin C, (VITAMIN C) 500 mg tablet Take 500 mg by mouth every morning. Active cyanocobalamin (VITAMIN B-12) 1,000 mcg tab Take 1,000 mcg by mouth once daily. Active escitalopram oxalate (LEXAPRO) 20 mg tablet Take 20 mg by mouth once daily. 2 Active levothyroxine (SYNTHROID) 75 mcg tablet Take 75 mcg by mouth once daily. 2 Active traZODone (DESYREL) 50 mg tablet Take 12.5 mg by mouth daily at bedtime. 2 Active cholecalciferol (VITAMIN D3) 1,000 unit tab tablet Take 1,000 Units by mouth once daily. Active NIACIN ORAL Take 250 mg by mouth once daily. Slow release Active BIOTIN ORAL Take 5,000 mcg by mouth once daily. Active flunisolide (NASALIDE, NASAREL) 25 mcg (0.025 %) spry Use 2 Sprays in the nose two times a day. Active MULTIVITAMIN ORAL Take 1 tablet by mouth once daily. Multivitamin with iron Active OXcarbazepine (TRILEPTAL) 150 mg tablet Take 0.5 tablets by mouth daily at bedtime. 4 Active busPIRone (BUSPAR) 15 mg tablet Active fludrocortisone (FLORINEF) 0.1 mg tablet Take 0.1 mg by mouth. 2 Active lidocaine (SALONPAS) 4 % patch Apply 1 Patch as directed. 4 Active meloxicam (MOBIC) 15 mg tablet Take 15 mg by mouth. 4 Active progesterone micronized (PROMETRIUM) 200 mg capsule Take 200 mg by mouth. Active cetirizine (ZYRTEC) 10 mg tabletIndicatio ns:Rash Take 1 tablet by mouth once daily. 90 tablet 3 5 Active Active Problems Problem Noted Date Diagnosed Date Psychogenic nonepileptic seizure 06/14/2024 Seizure-like activity 06/11/2024 Mixed conductive and sensorineural hearing loss, bilateral 06/06/2024 Abnormal EEG 05/17/2024 Loss of consciousness 05/16/2024 Pleural effusion 01/09/2024 Right-sided chest wall pain 01/08/2024 Abnormal computed tomography scan 01/07/2024 Pleural effusion on right 12/27/2023 Postoperative pain 11/23/2023 Assessment & Plan (11/29/2023 11:17 AM EDT): -PT/OT eval. -Out of bed to chair for meals. -Ambulate pt 3-4 x daily as able. -Pain control: analgesics titrated per consultation with Dr. Gandhi, Tavo Lynch MD Assessment & Plan (11/28/2023 11:46 AM EDT): -PT/OT eval. -Out of bed to chair for meals. -Ambulate pt 3-4 x daily as able. -Pain control: analgesics titrated per consultation with Tavo Johnson MD Assessment & Plan (11/26/2023 2:09 PM EDT): -PT/OT eval. -Out of bed to chair for meals. -Ambulate pt 3-4 x daily as able. -Pain control: analgesics titrated per consultation with Tavo Johnson MD Assessment & Plan (11/23/2023 11:59 AM EST): -PT/OT eval. -Out of bed to chair for meals. -Ambulate pt 3-4 x daily as able. -Pain control: analgesics titrated per consultation with Tavo Johnson MD Acute blood loss anemia 11/23/2023 Assessment & Plan (11/29/2023 11:18 AM EDT): Assessment: Postop anemia PLAN: -Trend -Transfuse for Hgb less than 7.0 or symptomatic anemia - Outpatient CBC 1 week after discharge Assessment & Plan (11/28/2023 11:45 AM EDT): Assessment: Postop anemia PLAN: -Trend -Transfuse for Hgb less than 7.0 or symptomatic anemia Assessment & Plan (11/26/2023 2:08 PM EDT): Assessment: Postop anemia PLAN: -Trend -Transfuse for Hgb less than 7.0 or symptomatic anemia Assessment & Plan (11/23/2023 11:59 AM EST): 1 unit RBC today Repeat CBC this PM Trend CBC daily Transfuse for hgb< 7 or symptomatic anemia Fusion of spine, thoracolumbar region 11/23/2023 Assessment & Plan (11/29/2023 11:18 AM EDT): S/p T10-L3 revision fusion, instrumentation removal, T11-L2 PCOs -PT/OT eval. -Out of bed to chair for meals. -Ambulate pt 3-4 x daily as able. -Weight bearing scoli XR reviewed -dc drain and prevena 3/12 -Monitor: signs, symptoms, disease progression, disease regression. -Evaluate: test results, medication effectiveness, response to treatment. -Pain control: analgesics titrated per consultation with Tavo Johnson MD -Plan discussed with Tavo Johnson MD -MARLEN planning. Planned Date of Discharge: Approximately 1-2 days Discharge Disposition: [facility] Assessment & Plan (11/28/2023 11:46 AM EDT): S/p T10-L3 revision fusion, instrumentation removal, T11-L2 PCOs -PT/OT eval. -Out of bed to chair for meals. -Ambulate pt 3-4 x daily as able. -Weight bearing scoli XR reviewed -dc drain and prevena 312 -Monitor: signs, symptoms, disease progression, disease regression. -Evaluate: test results, medication effectiveness, response to treatment. -Pain control: analgesics titrated per consultation with Tavo Johnson MD -Plan discussed with Tavo Johnson MD -MARLEN planning. Planned Date of Discharge: Approximately 1-2 days Discharge Disposition: [facility] Assessment & Plan (11/27/2023 2:00 PM EDT): S/p T10-L3 revision fusion, instrumentation removal, T11-L2 PCOs -PT/OT eval. -Out of bed to chair for meals. -Ambulate pt 3-4 x daily as able. -Weight bearing scoli XR reviewed -dc drain and prevena 3/12 -Monitor: signs, symptoms, disease progression, disease regression. -Evaluate: test results, medication effectiveness, response to treatment. -Pain control: analgesics titrated per consultation with Tavo Johnson MD -Plan discussed with Tavo Johnson MD -MARLEN planning. Planned Date of Discharge: Approximately 1-2 days Discharge Disposition: [facility] Assessment & Plan (11/26/2023 2:09 PM EDT): S/p T10-L3 revision fusion, instrumentation removal, T11-L2 PCOs -PT/OT eval. -Out of bed to chair for meals. -Ambulate pt 3-4 x daily as able. -DC [place]. -Monitor surgical drain output. -Weight bearing scoli XR reviewed -Monitor: signs, symptoms, disease progression, disease regression. -Evaluate: test results, medication effectiveness, response to treatment. -Pain control: analgesics titrated per consultation with Tavo Johnson MD -Plan discussed with Tavo Johnson MD -DC planning. Planned Date of Discharge: Approximately 2-3 days Discharge Disposition: [facility] Assessment & Plan (11/23/2023 12:03 PM EST): S/p T10-L3 revision fusion, instrumentation removal, T11-L2 PCOs -PT/OT eval. -Out of bed to chair for meals. -Ambulate pt 3-4 x daily as able. -DC [place]. -Monitor surgical drain output. -Weight bearing scoli XR before DC. -Monitor: signs, symptoms, disease progression, disease regression. -Evaluate: test results, medication effectiveness, response to treatment. -Pain control: analgesics titrated per consultation with Tavo Johnson MD -Plan discussed with Tavo Johnson MD -DC planning. Planned Date of Discharge: Approximately 3 - 5 days Discharge Disposition: TBD pending PT/OT eval Thrombocytopenia 11/23/2023 Assessment & Plan (11/29/2023 11:19 AM EDT): Trend plt. Consider transfusion <50 k Assessment & Plan (11/28/2023 11:46 AM EDT): Trend plt. Consider transfusion <50 k Assessment & Plan (11/26/2023 2:09 PM EDT): Trend plt. Consider transfusion <50 k Assessment & Plan (11/23/2023 12:04 PM EST): Trend plt. Consider transfusion <50 k Kyphosis deformity of spine 11/22/2023 Assessment & Plan (11/29/2023 11:17 AM EDT): S/P T10-L3 revision fusion, instrumentation removal, T11-L2 PCOs Assessment & Plan (11/28/2023 11:46 AM EDT): S/P T10-L3 revision fusion, instrumentation removal, T11-L2 PCOs Assessment & Plan (11/26/2023 2:09 PM EDT): S/P T10-L3 revision fusion, instrumentation removal, T11-L2 PCOs Assessment & Plan (11/23/2023 11:58 AM EST): S/P T10-L3 revision fusion, instrumentation removal, T11-L2 PCOs Generalized anxiety disorder 11/19/2023 Scoliosis 10/30/2023 Assessment & Plan (10/30/2023 11:58 AM EST): Plan for surgery Dysfunction of eustachian tube 10/10/2023 Dysuria 09/27/2023 LEFT Renal cyst 09/26/2023 Neutropenia 09/18/2023 Bipolar disorder 09/18/2023 Assessment & Plan (11/29/2023 11:17 AM EDT): Continue lexapro 20 mg daily , oxcarbazepine 150 mg HS, and trazadone 12.5 mg HS Monitor for exacerbation Assessment & Plan (11/28/2023 11:45 AM EDT): Continue lexapro 20 mg daily , oxcarbazepine 150 mg HS, and trazadone 12.5 mg HS Monitor for exacerbation Assessment & Plan (11/26/2023 2:08 PM EDT): Continue lexapro 20 mg daily , oxcarbazepine 150 mg HS, and trazadone 12.5 mg HS Monitor for exacerbation Assessment & Plan (11/23/2023 11:58 AM EST): Continue lexapro 20 mg daily , oxcarbazepine 150 mg HS, and trazadone 12.5 mg HS Monitor for exacerbation Assessment & Plan (10/30/2023 11:55 AM EST): Managed with Rx Followed by [facility] Trochanteric bursitis of left hip 02/13/2023 Juvenile idiopathic scoliosis of thoracolumbar r egion 12/04/2022 Down syndrome 09/21/2022 Assessment & Plan (11/29/2023 11:16 AM EDT): Continue outpatient follow up with PCP Assessment & Plan (11/28/2023 11:46 AM EDT): Continue outpatient follow up with PCP Assessment & Plan (11/26/2023 2:08 PM EDT): Continue outpatient follow up with PCP Assessment & Plan (11/23/2023 11:57 AM EST): Continue outpatient follow up with PCP Hypotension 09/21/2022 Assessment & Plan (10/30/2023 11:54 AM EST): Followed by cardiology Dr. Rio Hill, 07/10/23 [...] not drank a lot of fluids today. Hypothyroidism 09/21/2022 Assessment & Plan (11/29/2023 11:17 AM EDT): Continue levothyroxine 75 mcg daily Monitor for exacerbation Assessment & Plan (11/28/2023 11:46 AM EDT): Continue levothyroxine 75 mcg daily Monitor for exacerbation Assessment & Plan (11/26/2023 2:09 PM EDT): Continue levothyroxine 75 mcg daily Monitor for exacerbation Assessment & Plan (11/23/2023 11:57 AM EST): Continue levothyroxine 75 mcg daily Monitor for exacerbation Assessment & Plan (10/30/2023 11:59 AM EST): Managed with levothyroxine Followed by PCP Mitral valve regurgitation 09/21/2022 Assessment & Plan (10/30/2023 12:27 PM EST): 09/25/22 ECHO showed EF 65% There are no significant valvular abnormalities. PCP clearance letter scanned under 06/14/23 Macrocytosis 08/27/2022 Pelvic pain in female 08/10/2022 Bilateral hearing loss 07/10/2022 Assessment & Plan (10/30/2023 12:00 PM EST): Wears bilateral hearing aids Bilateral impacted cerumen 07/10/2022 Chronic tympanitis 05/25/2020 Dislocation of patellofemoral joint 08/02/2017 Leukopenia 01/22/2007 Assessment & Plan (11/29/2023 11:17 AM EDT): Trend CBC Assessment & Plan (11/28/2023 11:46 AM EDT): Trend CBC Assessment & Plan (11/26/2023 2:09 PM EDT): Trend CBC Assessment & Plan (11/23/2023 11:58 AM EST): Trend CBC H/O scoliosis Encounters Date Type Department Care Team Description 04/18/2025 Get Medical Advice Hematology/Oncology [address] [place] [address] Sal Reed MD Hope Miller 1980 03/26/2025 Refill Dermatology [address] [place] [address] Raji Espinal MD Refill Request from Last 3 Months Family History Medical History Relation Comments Hypertension Maternal Grandfather Stroke Maternal Grandfather Diabetes Maternal Grandmother Heart Attack Maternal Grandmother Heart Failure Maternal Grandmother Hypertension Maternal Grandmother Hyperlipidemia Mother Hypertension Mother Seizures Other Cancer Paternal Grandmother Relation Status Comments Maternal Grandfather Maternal Grandmother Mother Other Paternal Grandmother Social History Tobacco Use Types Packs/Day Years [...] is lower risk 5 01/18/2023 Data from: https://www.neighborhoodatlas.medicine.[facility].edu/. Last address used for calculation [address] 01/18/2023 Comments No Sex and Gender Information Value Date Recorded Sex Assigned at Female 10/24/2023 11:57 AM EST Legal Sex Female 10:17 AM EDT Gender Identity Female 10/24/2023 11:57 AM EST Sexual Orientation Straight 10/24/2023 11 :57 AM EST Last Filed Vital Signs Vital Sign Reading Time Taken Comments Blood Pressure 95/61 01/12/2025 2:57 PM EDT Pulse 69 01/12/2025 2:57 PM EDT Temperature 36.5 C (97.7 F) 01/12/2025 2:57 PM EDT Respiratory Rate 20 01/12/2025 2:57 PM EDT Oxygen Saturation 98% 01/12/2025 2:57 PM EDT Inhaled Oxygen Concentration - - Weight 62.6 kg (138 lb) 08/01/2024 11:57 AM EST Height 152.4 cm (5') 08/01/2024 11:57 AM EST Body Mass Index 26.95 08/01/2024 11:57 AM EST Plan of Treatment Health Maintenance Due Date Last Done Comments Annual PCP Team Chronic Dise ase Visit 1997 Depression Screening 1997 HIV Screening 1997 Hepatitis C Screening 1997 DTaP,Tdap,Td Vaccine (1 - Tdap) 1998 Cervical Cancer Screening 2000 Medicare Annual Wellness Visit 10/18/2005 HPV Vaccine (1 - 3-dose SCDM series) 2006 CT Colonography 2024 Cologuard (FIT-DNA) 2024 Colonoscopy 2024 Colorectal Cancer Screening 2024 Fecal Occult Blood 2024 Sigmoidoscopy 2024 Influenza Vaccine (#1) 2025 , 08/06/2019, 09/26/2012, Additional history exists Mammogram Screening 01/15/2026 01/15/2025, Diabetes Screening 03/06/2028 03/06/2025, 0 02/17/2025, 02/10/2025, Additional history exists Lipid Screening 11/28/2029 11/28/2024 Hepatitis B Vaccine Completed 03/30/2000, 11/17/1999, 10/06/1999 Goals Goal Patient Goal Type Associated Problems Recent Progress Patient-Stated? Author Blood Pressure < 140/90 Blood Pressure 95/61( 025 2:57 PM EDT) Rio Hines DO Medical Devices Implanted Type Area Physiologist Device Identifier Shelf Expiration Date Model / Serial / Lot Bone Graft Infuse X-Small - [id number] Implanted:Qty: 1 on 11/22/2023 by Tavo Gandhi MD at [facility] Bone N/A: Spine - Lumbar [employer] 02/14/2025 [id number] / / [id number] Graft Bone Sub 10cc Dbm Putty Inert Reverse Phase Carrier [employer] - [id number] Implanted:Qty: 1 on 11/22/2023 by Tavo Gandhi MD at [facility] Bone N/A: Spine - Lumbar [employer] 09/13/2025 [id number] / [id number] / [id number] Graft Bone Sub 10cc Dbm Putty Inert Reverse Phase Carrier [employer]osparx - [id number] Implanted:Qty: 1 on 11/22/2023 by Tavo Gandhi MD at [facility] Bone N/A: Spine - Lumbar [employer] 10/14/2025 [id number] / [id number] / [id number] Graft Bone 30cc 4mm-10mm Range Chips Crushed Cancellous - [id number] Implanted:Qty: 1 on 11/22/2023 by Tavo Gandhi MD at [facility] Bone N/A: Spine - Lumbar [employer] 01/16/2028 03-0400-300 / [id number] / [id number] Graft Bone 30cc 4mm-10mm Range Chips Crushed Cancellous - [id number] Implanted:Qty: 1 on 11/22/2023 by Tavo Gandhi MD at [facility] Bone N/A: Spine - Lumbar [id number] 10/19/2027 03-0400-300 / [id number] / [id number] Connector 5-6mm Oleg O-O Rotate Nonsterile Implanted:Qty: 5 on 11/22/2023 by Tavo Gandhi MD at [facility] Oleg N/A: Spine - Lumbar NUVASIVE [id number] / / Oleg Reline-O 5.5mm Straight Cocr 500mm Spinal Nonsterile - [id number] Implanted:Qty: 1 on 11/22/2023 at [facility] Oleg N/A: Spine - Lumbar NUVASIVE [id number] / / Screw Reline 5.5mm Bone Lock Open Tulip Nonsterile Spine - [id number] Implanted:Qty: 21 on 11/22/2023 at [facility] Screw N/A: Spine - Lumbar NUVASIVE [id number] / / Screw Reline-O 5.5mm 2s 50mm Bone Reduction Nonsterile Spine Implanted:Qty: 4 on 11/22/2023 by Tavo Gandhi MD at [facility] Screw N/A: Spine - Lumbar NUVASIVE [id number] / / Screw Reline-O 6.5mm 2s 50mm Bone Reduction Nonsterile Spine Implanted:Qty: 2 on 11/22/2023 by Tavo Gandhi MD at [facility] Screw N/A: Spine - Lumbar NUVASIVE [id number] / / Screw Reline-O 5.5mm 2s 45mm Bone Reduction Nonsterile Spine Implanted:Qty: 4 on 11/22/2023 by Tavo Gandhi MD at [facility] Screw N/A: Spine - Lumbar NUVASIVE [id number] / / Screw Reline-O 5.5mm 2s 40mm Bone Polyaxial Nonsterile Spine - [id number] Implanted:Qty: 1 on 11/22/2023 at [facility] Screw N/A: Spine - Lumbar NUVASIVE [id number] / / Procedures Procedure Name Priority Date/Time Associated Diagnosis Comments COMPREHENSIVE METABOLIC PANEL Routine 02/10/2025 10:59 AM EDT Neutropenia, unspecified type Coagulopathy (HCC) from Last 3 Months or Most Recently Relevant to Health Maintenance Insurance MEDICAID [place] MEDICARE Care Teams Workforce Analyst Relationship Specialty Start Date End Date Martin An MD [address] [place] [address], [address] [place] [address] PCP - General Internal Medicine 08/01/22 Martin An MD [address] [place] [address], [address] [place] [address] Internal Medicine 08/01/22 Analia Colvin, KALINA [address] [place] [address] 07/10/24 Rio Hill DO [address] [place] [address] Primary Staff Physician Cardiology 08/01/24
--- OUTSIDE RECORDS SUMMARY | 2025-05-22 18:02 | XMS_ITS | Encounter Summary ---
Author Organization [facility] Address [address] [place] [address] Care Team Providers Care Finished Cloth Examiner Name Role Phone Martin An MD Unavailable Martin An MD Primary Care Provider + Analia Colvin RN Unavailable Unavaila Rio Reardon DO Unavailable [phone] Source Comments In the event this information is protected by the Federal Confidentiality of Alcohol and Drug AbusePatient Records regulations: The Federal rules restrict any use of the information to criminally investigate or prosecute any alcohol or drug abuse patient.[facility] Reason for Visit * Reason Comments Radiology XR Encounter Details Date Type Department Care Team (Late st Contact Info) Description 02/06/2024 Radiology Radiology [address] [place], [place] [id number] Elizabeth Moore RT(R) Radiology XR Social History Tobacco Use Types Packs/Day Years [...] is lower risk 5 01/18/2023 Data from: https://www.neighborhoodatlas.medicine.[facility]/. Last address used for calculation [address] [...] Macy Mcmahan RN documented in this encounter Progress Notes * Zoe Leblanc, RT(R) - 02/06/2024 1:46 PM EDT Radiology Service Progress Note PATIENT NAME: Caitlin Huff DATE OF SERVICE: February 06, 2024 TIME: 1:46 PM PATIENT IDENTITY VERIFICATION COMPLETED USING TWO (2) IDENTIFIERS: Name and Date of confirmedby patient verbally. FALL SCREENING: Has the patient had 2 falls in the last year or 1 fall with injury or currently using an Ambulatory Assistive Device (Walker, Cane, Wheelchair, Crutches, etc.)? No PATIENT GENDER DATA: Female. status: : No status: NO. PATIENT RELEVANT IMPLANT DATA REVIEWED: Not Applicable PATIENT PRESENTS WITH AN IMPLANTABLE OR ATTACHED WEBSPHERE MESSAGE BROKER DEVELOPER: No RADIOLOGY DEPARTMENT: General X-ray: Exam(s) Completed: Chest X-Ray PERIPHERAL IV DATA: Not applicable SIGNED BY: Elizabeth Moore RT(R) February 06, 2024 1:46 PM documented in this encounter Plan of Treatment Not on file documented as of this encounter Visit Diagnoses Not on filedocumented in this encounter Care Teams Finished Cloth Examiner Relationship Specialty Start Date End Date Martin An MD [address] [place] [address], [address] [place] [address] PCP - General Internal Medicine 08/01/22 Martin An MD [address] [place] [address], [address] [place] [address] Internal Medicine 08/01/22 Analia Colvin, KALINA [address] [place] [address] 07/10/24 Rio Hill DO [address] [place] [address] Primary Staff Physician Cardiology 08/01/24 documented as of this encounter
--- OUTSIDE RECORDS SUMMARY | 2025-05-22 18:02 | XMS_ITS | Encounter Summary ---
Author Organization [employer] [facility] Address [id number] [address] [place] [address] Care Team Providers Care Wildlife Conservationist Name Role Phone Martin An MD Primary Care Provider [phone] Encounter Details Date Type Department Care Team (Late st Contact Info) Description 04/07/2025 Orders Only [facility] Internal Medicine/Pediatrics [address] [address] Zoe Maurer RMA Peroneal tendon rupture, right, sequela; Down syndrome Social History Tobacco Use Types Packs/Day Years Used Date Smoking Tobacco: Never Smokeless Tobacco: Never Alcohol Use Standard Drinks/Week Comments Never 0 (1 standard drink = 0.6 oz pur e alcohol) [facility] Utilities Answer Date Recorded In the [...] often do you attend chur ch or methodist services? Patient unable to answer 03/14/2025 Do you belong to any clubs o r organizations such as mu-ism groups, unions, fraternal or athletic groups, or [...] Answer Date Recorded Total Score 6 03/14/2025 [facility] [place] of Occupat ional Health - Occupational Stress [...] Recorded Do you need help finding a [facility] and/or a training program? No 03/14/2025 Hunger Screening Answer Date Recorded Within the past 12 months we worried whether our food would run out before we got money to buy more. Never True 03/14/2025 Within the past 12 months th e food we bought just didn't last and we didn't have money to get more. Never True 03/14/2025 Purpose - Life Answer Date Recorded I [...] EDT Office Visit [facility] Internal Medicine/Pediatrics [address] [place] [address] [address] [place] [address] Martin An MD [address] [place] [address], [address] [place] [address] documented as of this encounter Goals Goal Patient Goal Type Associated Problems Recent Progress Patient-Stated? Author fpc care General Yes Darlene Mendes, RN Note: Evaluation of progress towards goal: Patient and her parents are agreeable to fpc care. Mother states that the patient was at [facility] before and they will accept her back. Referral sent to [facility] and science writer spoke with Briana at [facility]. Briana is not familiar with a discussion with the mother. They will review the referral. documented as of this encounter Procedures Procedure Name Priority Date/Time Associated Diagnosis Comments AMB REFERRAL TO HOME HEALTH ([facility]) Routine 03/29/2025 Peroneal tendon rupture, right, sequela Down syndrome documented in this encounter Results * Ambulatory Referral to Home Health ([facility]) (03/29/2025) 03/29/2025 us Martin An MD OUTPATIENT REFERRAL ORDERABLE S Final Result MANUALLY TRANSCRIBED RESULTS documented in this encounter Visit Diagnoses Diagnosis Peroneal tendon rupture, right, sequela Down syndrome Down's syndrome documented in this encounter Additional Health Concerns Assessment Noted Time PHQ-9 Depression Total Score: 6 03/14/20 25 1:52 AM EDT documented as of this encounter Care Teams Wildlife Conservationist Relationship Specialty Start Date End Date Martin An MD [address] [place] [address], [address] [place] [address] PCP - General Pediatrics 08/20/23 documented as of this encounter
--- OUTSIDE RECORDS SUMMARY | 2025-05-22 18:02 | XMS_ITS | Encounter Summary ---
Author Organization [facility] Address [address] [place] [address] Care Team Providers Care Softball Umpire Name Role Phone Martin An MD Unavailable [phone] Martin An MD Primary Care Provider + Analia Colvin RN Unavailable Unavaila ble Rio Hill DO Unavailable [phone] Source Comments In the event this information is protected by the Federal Confidentiality of Alcohol and Drug AbusePatient Records regulations: The Federal rules restrict any use of the information to criminally investigate or prosecute any alcohol or drug abuse patient.[facility] Encounter Details Date Type Department Care Team (Late st Contact Info) Description 09/25/2022 Patient Msg Cardiology [address] [place] [address] Rio Hill DO [address] [place] [address] echo Social History Tobacco Use Types Packs/Day Years Used Date Smoking Tobacco: Never Smokeless Tobacco: Never Alcohol Use Standard Drinks/Week Comments Never 0 (1 standard drink = 0.6 oz pur e alcohol) PHQ-2 Answer Date Recorded PHQ-2 score 2 07/20/2022 Comments No Sex and Gender Information Value [...] on filedocumented in this encounter Care Teams Softball Umpire Relationship Specialty Start Date End Date Martin An MD [address] [place] [address], [address] [place] [address] PCP - General Internal Medicine 08/01/22 Martin An MD [address] [place] [address], [address] [place] [address] Internal Medicine 08/01/22 Analia Colvin, KALINA [address] [place] [address] 07/10/24 Rio Hill DO [address] [place] [address] Primary Staff Physician Cardiology 08/01/24 documented as of this encounter
--- OUTSIDE RECORDS SUMMARY | 2025-05-22 18:02 | XMS_ITS | Encounter Summary ---
Author Organization [facility] Address [id number] [address] [place] [address] Care Team Providers Care Swimming Pool Maintenance Name Role Phone Martin An MD Primary Care Provider [phone] Reason for Visit * Reason Comments Med Refill Encounter Details Date Type Department Care Team (Late st Contact Info) Description 06/28/2023 Refill [facility] Internal Medicine/Pediatrics [address] [place] [address] 1 [place] [address] Martin An MD [address] [place] [address], 1 [place] [address] Acute non-recurrent sinusitis, unspecified location Social History Tobacco Use Types Packs/Day Years [...] encounter Miscellaneous Notes * Telephone Encounter - Angelica Reyes CMA - 06/28/2023 4:18 PM EDT Call office if needs refill documented in this encounter Plan of Treatment Upcoming Encounters Date Type Department Care Team (Late st Contact Info) Description 11/30/2025 1:30 PM EDT Office Visit [facility] Internal Medicine/P[facility] [address] [place] [address] [address] [place] [address] Martin An MD [address] [place] [address], [address] [place], [place] [id number] documented as of this encounter Visit Diagnoses Diagnosis Acute non-recurrent sinusitis, unspecified location documented in this encounter Care Teams Swimming Pool Maintenance Relationship Specialty Start Date End Date Martin An MD [address] [place] [address], [address] [place] [id number] PCP - General Pediatrics 08/20/23 documented as of this encounter
--- OUTSIDE RECORDS SUMMARY | 2025-05-22 18:02 | XMS_ITS | Encounter Summary ---
Author Organization [facility] Address [address] [place] [address] Care Team Providers Care Insulation Blower Name Role Phone Martin An MD Unavailable [phone] Martin An MD Primary Care Provider + Analia Colvin RN Unavailable Unavaila Rio Reardon DO Unavailable [phone] Source Comments In the event this information is protected by the Federal Confidentiality of Alcohol and Drug AbusePatient Records regulations: The Federal rules restrict any use of the information to criminally investigate or prosecute any alcohol or drug abuse patient.[facility] Encounter Details Date Type Department Care Team (Late st Contact Info) Description 08/01/2023 Patient Msg MRI Q [address] [place] [id number] Provider, Ccf How To Prepare for your MRI under Anesthesia Social History Tobacco Use Types Packs/Day Years [...] is lower risk 5 01/18/2023 Data from: https://www.neighborhoodatlas.medicine.[facility].edu/. Last address used for calculation 25 [...] on filedocumented in this encounter Care Teams Insulation Blower Relationship Specialty Start Date End Date Martin An MD [address] [place] [address], [address] [place], [place] [id number] PCP - General Internal Medicine 08/01/22 Martin An MD [address] [place] [address], [address] [place], [place] [id number] Internal Medicine 08/01/22 Analia Colvin, KALINA [address] [place] [address] 07/10/24 Rio Hill DO [address] [place] [address] Primary Staff Physician Cardiology 08/01/24 documented as of this encounter
--- OUTSIDE RECORDS SUMMARY | 2025-05-22 18:02 | XMS_ITS | Encounter Summary ---
Author Organization [facility] Healthcare Address [address] [place] [address] Care Team Providers Care Combination Machine Tender Name Role Phone Martin An MD Primary Care Provider [phone] Encounter Details Date Type Department Care Team (Late Contact Info) Description 05/15/2025 Bamboo flowsheet [facility] [address] [place] [address] Rick Montano, PT [address] [place], [place] [id number] Social History Tobacco Use Types Packs/Day Years [...] Info) Description 05/28/2025 3:30 PM EDT Treatment [facility] [address] [place] [address] Candace Johnson, TIRE WORKER [address] [place] [address] 05/29/2025 1:30 PM EDT Treatment [facility] [address] [place] [address] Candace Johnson, TIRE WORKER [address] [place] [address] 06/01/2025 10:30 AM EDT Office Visit [facility] [address] [place] [phone] Anish Ng, DPM [address] [place] [address] 06/02/2025 11:30 AM EDT Treatment [facility] [address] [place] [address] Jacquelyn Colmenares, TIRE WORKER 06/04/2025 11:30 AM EDT Treatment [facility] [address] [place] [address] Candace Johnson, [facility] [address] [place], [place] [phone] documented as of this encounter Visit Diagnoses Not on filedocumented in this encounter Care Teams Combination Machine Tender Relationship Specialty Start Date End Date Martin An MD [address] [place] [address], [address] [place], [place] [id number] PCP - General Family Medicine 01/12/25 documented as of this encounter
--- OUTSIDE RECORDS SUMMARY | 2025-05-22 18:02 | XMS_ITS | Encounter Summary ---
Author Organization [facility] Address [address] [place] [address] Care Team Providers Care Ship Officer Name Role Phone Martin An MD Unavailable [phone] Martin An MD Primary Care Provider + Analia Colvin RN Unavailable Unavaila Rio Reardon DO Unavailable [phone] Source Comments In the event this information is protected by the Federal Confidentiality of Alcohol and Drug AbusePatient Records regulations: The Federal rules restrict any use of the information to criminally investigate or prosecute any alcohol or drug abuse patient.[facility] Encounter Details Date Type Department Care Team (Late st Contact Info) Description 11/08/2023 Patient Msg Spine [facility] [address] [place] [address] Provider, Ccf Important Reminder for Preparing Your Skin for Surgery Social History Tobacco Use Types Packs/Day Years [...] is lower risk 5 01/18/2023 Data from: https://www.neighborhoodatlas.medicine.[facility].edu/. Last address used for calculation 25 [...] on filedocumented in this encounter Care Teams Ship Officer Relationship Specialty Start Date End Date Martin An MD [address] [place] [address], [address] [place], [place] [phone] PCP - General Internal Medicine 08/01/22 Martin An MD [address] [place] [address], [address] [place], [place] [phone] Internal Medicine 08/01/22 Analia Colvin, KALINA [address] [place] [address] 07/10/24 Rio Hill DO [address] [place] [address] Primary Staff Physician Cardiology 08/01/24 documented as of this encounter
--- OUTSIDE RECORDS SUMMARY | 2025-05-22 18:02 | XMS_ITS | Encounter Summary ---
Author Organization [facility] Healthcare Address [address] [place] [address] Care Team Providers Care Surveyor Geophysical Prospecting Name Role Phone Martin An MD Primary Care Provider [phone] Encounter Details Date Type Department Care Team (Late Contact Info) Description 05/22/2025 Bamboo flowsheet [facility] [address] [place] [address] Rick Montano, PT [address] [place], [place] [address] Social History Tobacco Use Types Packs/Day Years [...] Info) Description 05/28/2025 3:30 PM EDT Treatment [facility] [address] [place] [address] Candace Johnson, MATERIAL EXPEDITER [address] [place] [address] 05/29/2025 1:30 PM EDT Treatment [facility] [address] [place] [address] Candace Johnson, MATERIAL EXPEDITER [address] [place] [address] 06/01/2025 10:30 AM EDT Office Visit [facility] Podiatry [address] [place] [phone] Anish Ng, DPM [address] [place] [address] 06/02/2025 11:30 AM EDT Treatment [facility] [address] [place] [address] Jacquelyn Colmenares, MATERIAL EXPEDITER 06/04/2025 11:30 AM EDT Treatment [facility] [address] [place] [address] Candace Johnson, [facility] [address] [place], [place] [phone] documented as of this encounter Visit Diagnoses Not on filedocumented in this encounter Care Teams Surveyor Geophysical Prospecting Relationship Specialty Start Date End Date Martin An MD [address] [place] [address], [address] [place], [place] [phone] PCP - General Family Medicine 01/12/25 documented as of this encounter
--- OUTSIDE RECORDS SUMMARY | 2025-05-22 18:02 | XMS_ITS | Encounter Summary ---
Author Organization [facility] Address [address] [place] [address] Care Team Providers Care Mate Chief Name Role Phone Martin An MD Unavailable [phone] Martin An MD Primary Care Provider + Analia Colvin RN Unavailable Unavaila Rio Reardon DO Unavailable Source Comments In the event this information is protected by the Federal Confidentiality of Alcohol and Drug AbusePatient Records regulations: The Federal rules restrict any use of the information to criminally investigate or prosecute any alcohol or drug abuse patient.[facility] Encounter Details Date Type Department Care Team (Late st Contact Info) Description 08/17/2022 Abstract Gynecology [address] [place], [place] [phone] Flory Bermudez MD [address] [place] [address] Social History Tobacco Use Types Packs/Day Years [...] suspected to have Coronavirus/COVID-19? No / Unsure 08/09/2022 10:48 AM EST documented as of this encounter Plan of Treatment Not on file documented as of this encounter Visit Diagnoses Not on filedocumented in this encounter Care Teams Mate Chief Relationship Specialty Start Date End Date Martin An MD [address] [place] [address], [address] [place] [address] PCP - General Internal Medicine 08/01/22 Martin An MD [address] [place] [address], [address] [place] [address] Internal Medicine 08/01/22 Analia Colvin, KALINA [address] [place] [address] 07/10/24 Rio Hill DO [address] [place] [address] Primary Staff Physician Cardiology 08/01/24 documented as of this encounter
--- OUTSIDE RECORDS SUMMARY | 2025-05-22 18:02 | XMS_ITS | Encounter Summary ---
Author Organization [facility] Address [address] [place] [address] Care Team Providers Care Psych Nurse Name Role Phone Martin An MD Unavailable [phone] Martin An MD Primary Care Provider + Analia Colvin RN Unavailable Unavaila Rio Reardon DO Unavailable [phone] Source Comments In the event this information is protected by the Federal Confidentiality of Alcohol and Drug AbusePatient Records regulations: The Federal rules restrict any use of the information to criminally investigate or prosecute any alcohol or drug abuse patient.[facility] Encounter Details Date Type Department Care Team (Late st Contact Info) Description 10/16/2022 Patient Msg [facility] [address] [place] [address] Provider, Ccf Compounded prescription at [facility] Social History Tobacco Use Types Packs/Day [...] N ot on file 10/04/2022 Data from: https://www.neighborhoodatlas.medicine.[facility].edu/. Last address used for calculation [address] 10/04/2022 Comments No Sex and Gender Information [...] on filedocumented in this encounter Care Teams Psych Nurse Relationship Specialty Start Date End Date Martin An MD [address] [place] [address], [address] [place] [address] PCP - General Internal Medicine 08/01/22 Martin An MD [address] [place] [address], [address] [place], [place] [phone] Internal Medicine 08/01/22 Analia Colvin, KALINA [address] [place] [address] 07/10/24 Rio Hill DO [address] [place] [address] Primary Staff Physician Cardiology 08/01/24 documented as of this encounter
--- OUTSIDE RECORDS SUMMARY | 2025-05-22 18:02 | XMS_ITS | Encounter Summary ---
Author Organization [facility] Address [address] [place] [address] Care Team Providers Care Sports Activities Foul Judge Name Role Phone Martin An MD Unavailable [phone] Martin An MD Primary Care Provider + Analia Colvin RN Unavailable Unavaila Rio Reardon DO Unavailable [phone] Source Comments In the event this information is protected by the Federal Confidentiality of Alcohol and Drug AbusePatient Records regulations: The Federal rules restrict any use of the information to criminally investigate or prosecute any alcohol or drug abuse patient.[facility] Encounter Details Date Type Department Care Team (Late st Contact Info) Description 02/01/2023 Patient Msg Neurology [address] [place] [phone] Provider, Ccf Injection coordinator info Social History Tobacco Use Types Packs/Day Years [...] is lower risk 5 01/18/2023 Data from: https://www.neighborhoodatlas.medicine.[facility].edu/. Last address used for calculation 25 [...] on filedocumented in this encounter Care Teams Sports Activities Foul Judge Relationship Specialty Start Date End Date Martin An MD [address] [place] [address], [address] [place] [address] PCP - General Internal Medicine 08/01/22 Martin An MD [address] [place] [address], [address] [place] [address] Internal Medicine 08/01/22 Analia Colvin, KALINA [address] [place] [address] 07/10/24 Rio Hill DO [address] [place] [address] Primary Staff Physician Cardiology 08/01/24 documented as of this encounter
--- OUTSIDE RECORDS SUMMARY | 2025-05-22 18:02 | XMS_ITS | Encounter Summary ---
Author Organization [facility] Address [address] [place] [address] Care Team Providers Care Wheel Loader Operator Name Role Phone Martin An MD Unavailable [phone] Martin An MD Primary Care Provider + Analia Colvin RN Unavailable Unavaila Rio Reardon DO Unavailable [phone] Source Comments In the event this information is protected by the Federal Confidentiality of Alcohol and Drug AbusePatient Records regulations: The Federal rules restrict any use of the information to criminally investigate or prosecute any alcohol or drug abuse patient.[facility] Encounter Details Date Type Department Care Team (Late st Contact Info) Description 09/16/2023 [place] [address] Provider, Ccf Questionnaire Submission Social History Tobacco Use Types Packs/Day Years [...] is lower risk 5 01/18/2023 Data from: https://www.neighborhoodatlas.medicine.[facility].edu/. Last address used for calculation [...] on filedocumented in this encounter Care Teams Wheel Loader Operator Relationship Specialty Start Date End Date Martin An MD [address] [place] [address], [address] [place], [place] [phone] PCP - General Internal Medicine 08/01/22 Martin An MD [address] [place] [address], [address] [place], [place] [phone] Internal Medicine 08/01/22 Analia Colvin, KALINA [address] [place] [address] 07/10/24 Rio Hill DO [address] [place] [address] Primary Staff Physician Cardiology 08/01/24 documented as of this encounter
--- OUTSIDE RECORDS SUMMARY | 2025-05-22 18:02 | XMS_ITS | Encounter Summary ---
Author Organization [facility] Address [address] [place] [address] Care Team Providers Care Woodworker Helper Name Role Phone Martin An MD Unavailable [phone] Martin An MD Primary Care Provider + Analia Colvin RN Unavailable Unavaila Rio Reardon DO Unavailable [phone] Source Comments In the event this information is protected by the Federal Confidentiality of Alcohol and Drug AbusePatient Records regulations: The Federal rules restrict any use of the information to criminally investigate or prosecute any alcohol or drug abuse patient.[facility] Encounter Details Date Type Department Care Team (Late st Contact Info) Description 02/28/2023 [place] [address] Provider, Ccf MRI Screening Questionnaire Completion Required [...] lower risk 5 01/18/2023 Data from: https://www.neighborhoodatlas.medicine.[facility].edu/. Last address used for calculation [address] [...] on filedocumented in this encounter Care Teams Woodworker Helper Relationship Specialty Start Date End Date Martin An MD [address] [place] [address], [address] [place], [place] [phone] PCP - General Internal Medicine 08/01/22 Martin An MD [address] [place] [address], [address] [place], [place] [phone] Internal Medicine 08/01/22 Analia Colvin, KALINA [address] [place] [address] 07/10/24 Rio Hill DO [address] [place] [address] Primary Staff Physician Cardiology 08/01/24 documented as of this encounter
--- NOTE | 2025-05-22 18:15 | XR_ITS ---
[facility] [place] [id number] Patient Name: KERWIN MARADIAGA MRN: [id number] date: 1980 Sex: F Assigned Patient Location: ED.MAIN Current Patient Location: ED.MAIN Accession/Order Number: [id number] Exam Date: 05/22/2025 18:35 Report Date: 05/22/2025 18:56 At the request of: MATTHEW LANG Procedure: XR chest 2V Plain film chest 2 view HISTORY: Chest pain for a few days COMPARISON: None FINDINGS: SUPPORT DEVICES: None POSTSURGICAL CHANGES: Spinal fixation hardware. No hardware complication HEART: Within normal limits PULMONARY DINH: Within normal limits MEDIASTINUM: Unremarkable LUNGS AND PLEURA: No acute lung process, pleural effusion or pneumothorax identified. BONY STRUCTURES: Scoliosis ADDITIONAL FINDINGS None XR/XR chest 2V IMPRESSION: No acute process. Impression dictated by: Rafa Velazquez M.D. 05/22/2025 6:56 PM Dictation Location: [place] Electronically authenticated by: [id number] Y Date: 05/22/2025 18:56
--- NOTE | 2025-05-22 18:17 | ED.GENADUL1 ---
HPI HPI - General Adult General Chief complaint: Chest Pain Stated complaint: CHEST PAINS Time Seen by Provider: 05/22/25 17:51 Source: patient and family Mode of arrival: Wheelchair History of Present Illness HPI narrative: 2-day history of chest pain versus upper abdominal pain. Patient also complains of pain with swallowing she does mention congestion versus slight cough. Mom is concerned patient may have gallbladder disease. She states patient does have mitral murmur but it is intermittent. Patient had surgery 6 weeks ago was seen at outside ED yesterday for same symptoms. Patient had food prior to arrival. Patient ambulatory to emergency room nontoxic in appearance Onset (ago): day(s) (2 days) Location: Reports chest Radiation: Reports non-radiation Treatments prior to arrival: Reports NSAID Related Data Home Medications ?Medication ?Instructions ?Recorded ?Confirmed ascorbic acid (vitamin C) 500 mg 500 mg PO .QD 05/22/25 05/22/25 capsule biotin 5 mg capsule 5 mg PO DAILY 05/22/25 05/22/25 cholecalciferol (vitamin D3) 1,250 1,250 mcg PO QWEEK 05/22/25 05/22/25 mcg (50,000 unit) capsule clotrimazole-betamethasone 1 1 applic topical Q12H PRN skin 05/22/25 05/22/25 %-0.05 % topical cream irritation cyanocobalamin (vitamin B-12) 1,000 mcg PO DAILY 05/22/25 05/22/25 1,000 mcg capsule escitalopram oxalate 20 mg tablet 20 mg PO QDAY 05/22/25 05/22/25 levothyroxine 75 mcg tablet 75 mcg PO DAILY 05/22/25 05/22/25 multivitamin with minerals-iron ml PO 05/22/25 fumarate 9 mg iron/15 mL oral liquid (Complete Multivitamin-Multimineral) niacin 250 mg tablet 250 mg PO DAILY 05/22/25 05/22/25 oxcarbazepine 150 mg tablet 150 mg PO DAILY 05/22/25 05/22/25 trazodone 50 mg tablet 12.5 mg PO BEDTIME 05/22/25 05/22/25 Previous Rx's ?Medication ?Instructions ?Recorded dicyclomine 10 mg capsule 10 mg PO QID PRN abdominal pain 05/22/25 #20 caps famotidine 20 mg tablet 20 mg PO BID #14 tabs 05/22/25 Allergies Allergy/AdvReac Type Severity Reaction Status Date / Time cefaclor (From [facility]) Allergy constipatio Verified 05/22/25 17:53 n fentanyl Allergy Seizure Verified 05/22/25 17:53 Opioid HPI Opioid Management Most Recent Opioid Data: Last Pain Scale 6 Today, 18:03 Review of Systems ROS Status of ROS 10 or more systems reviewed and unremarkable except as noted in history and below Constitutional Denies: fever or chills Ears, nose, mouth, and throat Reports: throat pain; Denies: ear pain or ear discharge Cardiovascular Reports: chest pain Respiratory Denies: shortness of breath or cough Gastrointestinal Reports: abdominal pain; Denies: nausea or vomiting Genitourinary Denies: painful urination or blood in urine Musculoskeletal Denies: back pain PFSH PFSH Social History Little interest or pleasure in doing things: not at all Feeling down, depressed, or hopeless: not at all Exam Constitutional Vital Signs, click to edit/add: Last Vital Signs Temp 98.8 F 05/22/25 17:53 Pulse 65 05/22/25 20:00 Resp 15 05/22/25 20:00 BP 109/53 05/22/25 20:00 Pulse Ox 97 05/22/25 19:50 O2 Del Method Room Air 05/22/25 18:03 Documenting provider has reviewed patient's vital signs: yes Common normals: no apparent distress, average body habitus, alert and well nourished Exam limitations: no altered mental status General appearance: cooperative, comfortable and well kempt Orientation/consciousness: Yes awake HENNJ Common normals: normocephalic Head and scalp: normal to inspection Face and sinus: normal facial exam Nose: external nose normal and nares normal General ear: hearing not grossly impaired External auditory canal: EACs normal Tympanic membrane: TMs normal bilaterally Eye Common normals: PERRL and EOMs intact bilaterally Neck & C-Spine Common normals: full ROM and supple Chest Common normals: palpation of chest abnormal Chest: symmetrical chest wall rise and other (anterior Rib tenderness lower chest.) GI Common normals: Normal to inspection, nondistended, normoactive bowel sounds present, soft to palpation and non-tender Auscultation: normoactive bowel sounds Palpation: soft; non-tender, no guarding and not rigid Back & Pelvis Common normals: no CVA tenderness Extremity Common normals: full ROM Neuro Common normals: oriented x3 Sensorium/orientation: awake and alert Psych Common normals: mental status grossly normal and cooperative Course Vital Signs Vital signs: Vital Signs Temperature 98.8 F 05/22/25 17:53 Pulse Rate 72 05/22/25 17:53 Respiratory Rate 18 05/22/25 17:53 Blood Pressure 128/43 L 05/22/25 17:53 Pulse Oximetry 96 05/22/25 17:53 Oxygen Delivery Method Room Air 05/22/25 17:53 Temperature 98.8 F 05/22/25 17:53 Pulse Rate 65 05/22/25 20:00 Respiratory Rate 15 05/22/25 20:00 Blood Pressure 109/53 05/22/25 20:00 Pulse Oximetry 97 05/22/25 19:50 Oxygen Delivery Method Room Air 05/22/25 18:03 Medical Decision Making MDM Narrative Medical decision making narrative: Patient seen at outside facility negative for cardiac surgery or stents patient does not take blood thinners amatory in emergency room has anterior tenderness. To chest wall. Negative abdominal tenderness negative distention. Negative flank or CVA tenderness. Patient had p.o. intake prior to arrival. Will add basic cardiac workup [place] CMP 49446, chest x-ray lipase urinalysis with sore throat will also add COVID and strep. Toradol 30 mg IV. Patient's laboratory evaluation and notes from yesterday's evaluation in [place] patient had negative cardiac enzymes she had similar white cell count and lipase which has improved today. bnp wnl. I do note that she had a pleural effusion in the past drained to [facility] they did not find any reason for it at the time. Patient has re producible right-sided chest wall tenderness. Patient with Pepcid and Bentyl patient has improved she feels better. CTA negative per radiology report patient to follow-up with her specialist including cardiology, gastroenterology and general surgery [facility]. We will prescribe Pepcid and Bentyl for home as patient had relief with these medications. Discussed plan of care with patient and her family at bedside. They are agreeable to plan of care. Differential Diagnosis Differential Diagnosis: cp,acs,uri Medical Records Medical records narrative: Patient's labs to family provided labs from [place] Lab Data Lab results reviewed: Yes I reviewed the patient's lab results Labs: Lab Results 05/22/25 05/22/25 Range/Units 18:25 19:30 WBC 3.3 L (4.0-11.0) 10^3/uL RBC 3.78 L (4.20-5.40) 10^6/uL Hgb 12.9 (12.0-16.0) g/dL Hct 38.0 (36.0-48.0) % MCV 100.5 H (81.0-99.0) fL MCH 34.1 H (26.7-34.0) pg MCHC 33.9 (29.9-35.2) g/dL RDW 13.7 (11.0-15.0) % Plt Count 201 (150-450) 10^3/uL MPV 9.4 L (9.5-13.5) fL Neut % (Auto) 42.6 L (43.0-75.0) % Lymph % (Auto) 44.8 (20.5-60.0) % Hawkins % (Auto) 8.3 (1.7-12.0) % Eos % (Auto) 1.5 (0.9-7.0) % Baso % (Auto) 2.5 H (0.2-2.0) % Neut # (Auto) 1.4 (1.4-6.5) 10^3/uL Lymph # (Auto) 1.5 (1.2-3.8) 10^3/uL Hawkins # (Auto) 0.3 (0.3-0.8) 10^3/uL Eos # (Auto) 0.1 (0.0-0.7) 10^3/uL Baso # (Auto) 0.1 (0.0-0.1) 10^3/uL Abs Immat Gran (auto) 0.01 (0.00-0.03) 10^3/uL Imm/Tot Granulo (auto) 0.3 (0.0-0.5) % Sodium 140 (136-145) mmol/L Potassium 4.3 (3.5-5.1) mmol/L Chloride 103 (98-107) mmol/L Carbon Dioxide 30.3 (21.0-32.0) mmol/L Anion Gap 11.0 BUN 16.0 (7.0-18.0) mg/dL Creatinine 0.81 (0.55-1.02) mg/dL Est GFR ( Amer) >60 (>=60 mL/min/1.73m^2) Est GFR (Non-Af Amer) >60 (>=60 mL/min/1.73m^2) BUN/Creatinine Ratio 19.8 Glucose 96 (74-106) mg/dL Calcium 9.2 (8.5-10.1) mg/dL Magnesium 2.1 (1.8-2.4) mg/dL Total Bilirubin 0.3 (0.2-1.0) mg/dL AST 20 (15-37) U/L ALT 22 (14-59) U/L Alkaline Phosphatase 76 (46-116) U/L Troponin I High Sens 6.0 6.0 (4.0-51.3) pg/mL Total Protein 7.8 (6.4-8.2) g/dL Albumin 4.0 (3.4-5.0) g/dL Globulin 3.8 g/dL Albumin/Globulin Ratio 1.1 Lipase 57.0 (16.0-77.0) U/L SARS-CoV-2 Ag (CV2AG) Negative (NEGATIVE) Streptococcus Screen Negative Imaging Data CT scan - chest: Radiologist's impression: ITS Impressions Chest X-Ray 05/22/25 18:15 IMPRESSION: No acute process. Impression dictated by: Rafa Velazquez M.D. 05/22/2025 6:56 PM Dictation Location: [employer] Electronically authenticated by: [id number] Y Date: 05/22/2025 18:56 Chest CTA 05/22/25 20:08 IMPRESSION: No acute pulmonary embolus. No aortic aneurysm or dissection. Impression dictated by: Rafa Velazquez M.D. 05/22/2025 9:29 PM Dictation Location: [employer] Electronically authenticated by: [id number] Y Date: 05/22/2025 21:29 ECG Data Attestation: I personally reviewed and interpreted this ECG as follows: Interpretation: EKG normal sinus rhythm rate [address] segment elevation. Pr int 136 ms QRS 88 ms QTc 396 ms. Discharge Plan Discharge Chief Complaint: Chest Pain Clinical Impression: Biliary colic Chest pain Qualifiers: Chest pain type: unspecified Qualified Code(s): R07.9 - Chest pain, unspecified Patient Disposition: Home, Self-Care Time of Disposition Decision: 21:47 Condition: Good Mode of Transportation: Private Vehicle Prescriptions / Home Meds: New famotidine 20 mg tablet 20 mg PO BID Qty: 14 0RF dicyclomine 10 mg capsule 10 mg PO QID PRN (Reason: abdominal pain) Qty: 20 0RF No Action oxcarbazepine 150 mg tablet 150 mg PO DAILY trazodone 50 mg tablet 12.5 mg PO BEDTIME levothyroxine 75 mcg tablet 75 mcg PO DAILY clotrimazole-betamethasone 1-0.05 % cream 1 applic TOPICAL Q12H PRN (Reason: skin irritation) escitalopram oxalate 20 mg tablet 20 mg PO QDAY Complete Multivitamin-Mineral 9 mg iron/15 mL liquid PO biotin 5 mg capsule 5 mg PO DAILY niacin 250 mg tablet 250 mg PO DAILY cholecalciferol (vitamin D3) 1,250 mcg (50,000 unit) capsule 1,250 mcg PO QWEEK ascorbic acid (vitamin C) 500 mg capsule 500 mg PO .QD cyanocobalamin (vitamin B-12) 1,000 mcg capsule 1,000 mcg PO DAILY Print Language: Egyptian Instructions: Chest Pain (ED), Biliary Colic (ED) Additional Instructions: Follow-up with primary care, cardiology, gastroenterology, general surgery. Review urine culture from [place]. Return to if any symptoms worsen or new symptoms well. Referrals: Your service bar cashier [Other] - As soon as possible Your language translator [Other] - 1 week General surgery [Other] - 1 week LYNETTE ROJO [Primary Care Provider, Family Practice] - 1 week
[2025-05-22 18:32] LABS: Hematocrit 38.0 % (36.0-48.0); Hemoglobin 12.9 g/dL (12.0-16.0); Immature Granulocytes Abs Auto 0.01 10^3/uL (0.00-0.03); Immature Granulocytes Pct Auto 0.3 % (0.0-0.5); Lymphocytes Absolute Auto 1.5 10^3/uL (1.2-3.8); Mean Corpuscular HGB Conc 33.9 g/dL (29.9-35.2); Mean Corpuscular Hemoglobin 34.1 pg (26.7-34.0); Mean Corpuscular Volume 100.5 fL (81.0-99.0); Platelet Count 201 10^3/uL (150-450); Red Blood Count 3.78 10^6/uL (4.20-5.40); White Blood Count 3.3 10^3/uL (4.0-11.0)
[2025-05-22] MEDS: KETOROLAC TROMETHAMINE 30 MG/ML VIAL IVP (18:40)
[2025-05-22 18:45] LABS: SARS-CoV-2 Ag NEGATIVE (NEGATIVE)
[2025-05-22 18:53] LABS: Alanine Aminotransferase 22 U/L (14-59); Albumin Globulin Ratio 1.1; Albumin Level 4.0 g/dL (3.4-5.0); Alkaline Phosphatase 76 U/L (46-116); Anion Gap 11.0; Aspartate Amino Transferase 20 U/L (15-37); Blood Urea Nitrogen 16.0 mg/dL (7.0-18.0); Calcium 9.2 mg/dL (8.5-10.1); Carbon Dioxide 30.3 mmol/L (21.0-32.0); Chloride 103 mmol/L (98-107); Estimated GFR (African America >60 (>=60 mL/min/1.73m^2); Estimated GFR (Non-African Ame >60 (>=60 mL/min/1.73m^2); Globulin 3.8 g/dL; Glucose 96 mg/dL (74-106); Lipase 57.0 U/L (16.0-77.0); Magnesium 2.1 mg/dL (1.8-2.4); Potassium 4.3 mmol/L (3.5-5.1); Sodium 140 mmol/L (136-145); Total Protein 7.8 g/dL (6.4-8.2)
--- NOTE | 2025-05-22 20:08 | CT_ITS ---
The [address] [address] Patient Name: KERWIN MARADIAGA MRN: [id number] date: 1980 Sex: F Assigned Patient Location: ER Current Patient Location: ER Accession/Order Number: [id number] Exam Date: 05/22/2025 20:44 Report Date: 05/22/2025 21:29 At the request of: MATTHEW LANG Procedure: CT angio chest CTA Chest with PE protocol TECHNIQUE: Axial imaging with 2-D and 3-D reconstruction. Cc of Omnipaque [address] exam was performed using one or more the following dose reduction techniques: Automated exposure control, adjustment of the MA and/or Kv according to patient size, or use of the iterative reconstruction technique. History: Chest pain for a few days COMPARISON: None THYROID: Unremarkable TRACHEA AND BRONCHI: Patent ESOPHAGUS: Unremarkable. HEART: Within normal limits PERICARDIAL EFFUSION: None CORONARY ARTERY CALCIFICATION: None MEDIASTINUM: No adenopathy. No pneumoperitoneum. No mediastinal hematoma. PULMONARY DINH: No hilar mass or adenopathy is seen. THORACIC AORTA Unremarkable PULMONARY EMBOLUS: None LUNG NODULE None LUNGS: Lungs are clear PLEURAL EFFUSION: None PNEUMOTHORAX: No pneumothorax seen. CHEST WALL: No abnormality AXILLA: Unremarkable BONY STRUCTURES of spinal fixation hardware. Mild scoliosis. UPPER ABDOMEN: Images of the upper abdomen are noncontributory. CT/CT angio chest IMPRESSION: No acute pulmonary embolus. No aortic aneurysm or dissection. Impression dictated by: Rafa Velazquez M.D. 05/22/2025 9:29 PM Dictation Location: [facility] Electronically authenticated by: [id number] Y Date: 05/22/2025 21:29
[2025-05-22] MEDS: DICYCLOMINE HCL 10 MG CAPSULE 20 MG PO (20:26)
[2025-05-22] MEDS: FAMOTIDINE/PF 20 MG/2 ML VIAL IV (20:26)
== END 2025-05-22 22:20 | disposition home or self-care (01) ==
PROVIDERS: Physician Assistant; Emergency Provider Student in an Organized Health Care Education/Training Program; PCP Internal Medicine
DX: R07.9 Chest pain, unspecified (principal); K80.50 Calculus of bile duct without cholangitis or cholecystitis without obstruction
CPT/HCPCS: 36415; 71046; 71275; 80053; 83690; 83735; 84484; 85025; 87070; 87811; 87880; 93005; 96374; 96375; 99285; J1885; J3490; Q9967